=== PATIENT | female | born 1960 | race Caucasian/White ===

== ENCOUNTER → 2017-06-26 | Outpatient (CLI) | payer MEDICARE, OTHER ==
--- NOTE | 2017-06-26 16:20 | CT ---
EXAMINATION TYPE: CT hip LT wo con DATE OF EXAM: 06/26/2017 COMPARISON: NONE HISTORY: Left hip pain after fall injury x2 weeks ago. CT DLP: 349 mGycm Automated exposure control for dose reduction was used. Helical acquisition through the left hip. Cor onal and sagittal reconstructions. FINDINGS: There is no fracture or dislocation. Arthropathy is present with hypertrophic change especially at th e latter acetabulum, correlate for femoral acetabular impingement. No sizable joint effusion or hemat hieu. Some local posterior ecchymosis or soft tissue swelling is noted at the level of the greater tro chanter within the subcutaneous fat IMPRESSION: DEGENERATIVE CHANGES ARE HYPERTROPHIC DESCRIBED, CORRELATE FOR POSSIBLE FEMORAL ACETABULAR IMPINGE MENT.
[2017-06-26 17:28] LABS: Basophils # (A) 0.1 k/uL (0-0.2); Basophils % (A) 1 %; Eosinophils # (A) 0.3 k/uL (0-0.7); Eosinophils % (A) 3 %; HCT 42.1 % (34.0-46.0); HGB 13.5 gm/dL (11.4-16.0); Lymphocytes # (A) 3.2 k/uL (1.0-4.8); Lymphocytes % (A) 34 %; MCH 29.7 pg (25.0-35.0); MCHC 32.1 g/dL (31.0-37.0); MCV 92.6 fL (80.0-100.0); Mean Platelet Volume 7.4; Monocytes # (A) 0.6 k/uL (0-1.0); Monocytes % (A) 6 %; Neutrophils # (A) 5.2 k/uL (1.3-7.7); Neutrophils % (A) 55 %; Platelet Count 381 k/uL (150-450); RBC 4.55 m/uL (3.80-5.40); RDW 12.7 % (11.5-15.5); WBC 9.4 k/uL (3.8-10.6)
[2017-06-26 19:52] LABS: Erythrocyte Sedimentation Rate 8 mm/hr (0-20)
== END | disposition home or self-care (01) ==
LOC: RADCTMAIN 15:38
PROVIDERS: ATTEND Orthopaedic Surgery
DX: M25.862 Other specified joint disorders, left knee (principal); M25.552 Pain in left hip
CPT/HCPCS: 36415; 85025; 85652

== ENCOUNTER → 2017-07-17 | Outpatient (CLI) | payer MEDICARE, OTHER ==
--- NOTE | 2017-07-20 12:15 | MM ---
Reason for exam: screening (asymptomatic). Last mammogram was performed 12 years and 6 months ago. History: Excisional biopsy of the left breast. Physical Findings: A clinical breast exam by your physician is recommended on an annual basis and results should be correlated with mammographic findings. MG 3D Screening Mammo W/Cad Bilateral CC and MLO view(s) were taken. No prior studies available for comparison. There are scattered fibroglandular densities. There is a 3mm mass upper outer quadrant left breast posterior depth, possible lymph node. Ultrasound recommend as no priors are available. There are benign appearing bilateral calcifications. No suspicious abnormality in the right breast. These results were verbally communicated with the patient and result sheet given to the patient on 07/17/17. ASSESSMENT: Incomplete: need additional imaging evaluation, BI-RAD 0 RECOMMENDATION: Ultrasound of the left breast. [facility] will attempt to contact patient to return for ultrasound.
== END | disposition home or self-care (01) ==
LOC: RADMAMWWP 06:48
PROVIDERS: ATTEND Internal Medicine
DX: Z12.31 Encounter for screening mammogram for malignant neoplasm of breast (principal)
CPT/HCPCS: 77063; 77067

== ENCOUNTER → 2017-07-21 | Outpatient (CLI) | payer MEDICARE, OTHER ==
--- NOTE | 2017-07-22 08:51 | USB ---
Reason for exam: additional evaluation requested from abnormal screening. History: Excisional biopsy of the left breast. Physical Findings: Nurse did not find any significant physical abnormalities on exam. US Breast Workup Limited LT Left breast ultrasound demonstrates a 0.2 x 0.4 x 0.2cm solid, hyperechoic lesion at 3 o'clock, questionable clip and a 0.3 x 0.4 x 0.2cm oval, benign, cystic cluster at 3 o'clock. These results were verbally communicated with the patient and result sheet given to the patient on 07/21/17. ASSESSMENT: Benign, BI-RAD 2 RECOMMENDATION: Return to routine screening mammogram schedule for both breasts. MARIA EUGENIA
== END | disposition home or self-care (01) ==
LOC: RADUSWWP 14:21
PROVIDERS: ATTEND Internal Medicine
DX: R92.8 Other abnormal and inconclusive findings on diagnostic imaging of breast (principal)

== ENCOUNTER 2017-11-07 13:11 | Inpatient (IN) | payer MEDICARE, OTHER ==
[2017-11-07] MEDS ORDERED: SODIUM CHLORIDE 0.9% 500 ML IV STA (13:28)
[2017-11-07] MEDS ORDERED: LORazepam 2 MG/ML INJ IV STA (13:28)
--- NOTE | 2017-11-07 13:33 | ED ---
General Adult HPI - General Chief complaint: Neuro Symptoms/Deficit Stated complaint: Memory loss Time Seen by Provider: 11/07/17 13:15 Source: patient, RN notes reviewed Mode of arrival: ambulatory Limitations: no limitations - History of Present Illness Initial comments: Is a 57-year-old female who presents emergency Department with a past medical history significant for smoking which she states she's quit in March. Patient presents today complaining that on November 04 she fell she doesn't believe she hit her head but she does know why she fell and she was unable to get up off the floor for a little bit. Patient states she was not drinking because she does not drink. Patient states eventually she was able to get up off the floor but she noticed that it was difficult to find her words and express her thoughts. Patient states this lack of ability to express herself has continued to today. Patient states at this point she still concerned she decided to finally come in even though her encouraged her to come in on the day she fell. Patient denies headache currently but states she had a headache at the time she fell. Patient denies any visual disturbance. Patient denies any upper or lower extremity weakness or any sensation loss. Patient denies any chest pain palpitations difficulty breathing shortness of breath. Patient denies any recent fever chills or cough. Patient denies any similar symptoms in the past. Patient denies abdominal pain patient denies nausea vomiting diarrhea. Patient denies any lightheadedness dizziness or near syncopal episode. - Related Data Home Medications Medication Instructions Recorded Confirmed traMADol HCl [Ultram] 50 - 100 mg PO Q6H PRN MDD 400MG(8 01/21/11/07/17 TABS) Omeprazole 20 mg PO BID 11/07/17 11/07/17 Allergies Allergy/AdvReac Type Severity Reaction Status Date / Time Penicillins Allergy Rash/Hives/ Verified 11/07/17 13:31 SWELLING Review of Systems ROS Statement: Those systems with pertinent positive or pertinent negative responses have been documented in the HPI. ROS Other: All systems not noted in ROS Statement are negative. Past Medical History Past Medical History: COPD, Fibromyalgia Additional Past Medical History / Comment(s): HX POLYP, CHRONIC BACK PAIN History of Any Multi-Drug Resistant Organisms: None Reported Past Surgical History: Appendectomy, Back Surgery, Breast Surgery, Cholecystectomy Additional Past Surgical History / Comment(s): LEFT BREAST BX BENIGN, COLONOSCOPY Past Anesthesia/Blood Transfusion Reactions: No Reported Reaction Past Psychological History: No Psychological Hx Reported Smoking Status: Former smoker Past Alcohol Use History: None Reported Past Drug Use History: None Reported - Past Family History Father Family Medical History: Cancer Additional Family Medical History / Comment(s): COLON Mother Family Medical History: Cancer Additional Family Medical History / Comment(s): LIVER General Exam - General Exam Comments Initial Comments: GENERAL: Patient is well-developed and well-nourished. Patient is nontoxic and well- hydrated and is in mild distress. ENT: Neck is soft and supple. No significant lymphadenopathy is noted. Oropharynx is clear. Moist mucous membranes. Neck has full range of motion without eliciting any pain. EYES: The sclera were anicteric and conjunctiva were pink and moist. Extraocular movements were intact and pupils were equal round and reactive to light. Eyelids were unremarkable. PULMONARY: Unlabored respirations. Good breath sounds bilaterally. No audible rales rhonchi or wheezing was noted. CARDIOVASCULAR: There is a regular rate and rhythm without any murmurs gallops or rubs. ABDOMEN: Soft and nontender with normal bowel sounds. No palpable organomegaly was noted. There is no palpable pulsatile mass. SKIN: Skin is clear with no lesions or rashes and otherwise unremarkable. NEUROLOGIC: Patient is alert and oriented x3. Cranial nerves II through XII are grossly intact. Motor and sensory are also intact. Patient's speech is clear however she does have trouble expressing herself.. Symmetrical smile. MUSCULOSKELETAL: Normal extremities with adequate strength and full range of motion. No lower extremity swelling or edema. No calf tenderness. LYMPHATICS: No significant lymphadenopathy is noted PSYCHIATRIC: Patient is mildly anxious. Limitations: no limitations Course Vital Signs 11/07/17 11/07/17 13:13 14:29 Temperature 98.5 F Pulse Rate 92 78 Respiratory 16 18 Rate Blood Pressure 188/103 156/75 O2 Sat by Pulse 97 99 Oximetry Medical Decision Making - Medical Decision Making EKG shows normal sinus rhythm at 75 bpm VA interval is 164 QRS 74 QT interval 414 QTC is 462. Patient's EKG shows no ST segment elevation or depression or T wave abnormalities are noted. CT of the brain shows an infarct left temporal parietal region I admitted the patient for CVA I consult the neurology. I spoke with Dr. Rowley and he agreed to the admission - Lab Data Result diagrams: 11/07/17 13:46 11/07/17 13:46 Lab Results 11/07/17 11/07/17 11/07/17 Range/Units 13:32 13:46 13:46 WBC 8.8 (3.8-10.6) k/uL RBC 4.86 (3.80-5.40) m/uL Hgb 15.1 (11.4-16.0) gm/dL Hct 43.8 (34.0-46.0) % MCV 90.0 (80.0-100.0) fL MCH 31.0 (25.0-35.0) pg MCHC 34.4 (31.0-37.0) g/dL RDW 13.3 (11.5-15.5) % Plt Count 327 (150-450) k/uL Neutrophils % 62 % Lymphocytes % 26 % Monocytes % 6 % Eosinophils % 3 % Basophils % 1 % Neutrophils # 5.5 (1.3-7.7) k/uL Lymphocytes # 2.3 (1.0-4.8) k/uL Monocytes # 0.6 (0-1.0) k/uL Eosinophils # 0.3 (0-0.7) k/uL Basophils # 0.1 (0-0.2) k/uL Sodium (137-145) mmol/L Potassium (3.5-5.1) mmol/L Chloride (98-107) mmol/L Carbon Dioxide (22-30) mmol/L Anion Gap mmol/L BUN (7-17) mg/dL Creatinine (0.52-1.04) mg/dL Est GFR (CKD-EPI)AfAm (>60 ml/min/1.73 sqM) Est GFR (CKD-EPI)NonAf (>60 ml/min/1.73 sqM) Glucose (74-99) mg/dL POC Glucose (mg/dL) 134 H (75-99) mg/dL POC Glu Claims Account Manager ID Fanny Posada Calcium (8.4-10.2) mg/dL Total Bilirubin (0.2-1.3) mg/dL AST (14-36) U/L ALT (9-52) U/L Alkaline Phosphatase (38-126) U/L Total Creatine Kinase 193 H (30-135) U/L CK-MB (CK-2) 1.1 (0.0-2.4) ng/mL CK-MB (CK-2) Rel Index 0.6 Troponin I <0.012 (0.000-0.034) ng/mL Total Protein (6.3-8.2) g/dL Albumin (3.5-5.0) g/dL 11/07/17 Range/Units 13:46 WBC (3.8-10.6) k/uL RBC (3.80-5.40) m/uL Hgb (11.4-16.0) gm/dL Hct (34.0-46.0) % MCV (80.0-100.0) fL MCH (25.0-35.0) pg MCHC (31.0-37.0) g/dL RDW (11.5-15.5) % Plt Count (150-450) k/uL Neutrophils % % Lymphocytes % % Monocytes % % Eosinophils % % Basophils % % Neutrophils # (1.3-7.7) k/uL Lymphocytes # (1.0-4.8) k/uL Monocytes # (0-1.0) k/uL Eosinophils # (0-0.7) k/uL Basophils # (0-0.2) k/uL Sodium 141 (137-145) mmol/L Potassium 4.4 (3.5-5.1) mmol/L Chloride 103 (98-107) mmol/L Carbon Dioxide 24 (22-30) mmol/L Anion Gap 14 mmol/L BUN 13 (7-17) mg/dL Creatinine 0.91 (0.52-1.04) mg/dL Est GFR (CKD-EPI)AfAm 81 (>60 ml/min/1.73 sqM) Est GFR (CKD-EPI)NonAf 70 (>60 ml/min/1.73 sqM) Glucose 144 H (74-99) mg/dL POC Glucose (mg/dL) (75-99) mg/dL POC Glu Claims Account Manager ID Calcium 9.7 (8.4-10.2) mg/dL Total Bilirubin 0.7 (0.2-1.3) mg/dL AST 29 (14-36) U/L ALT 28 (9-52) U/L Alkaline Phosphatase 84 (38-126) U/L Total Creatine Kinase (30-135) U/L CK-MB (CK-2) (0.0-2.4) ng/mL CK-MB (CK-2) Rel Index Troponin I (0.000-0.034) ng/mL Total Protein 7.7 (6.3-8.2) g/dL Albumin 4.6 (3.5-5.0) g/dL Disposition Clinical Impression: Cerebrovascular accident Disposition: ADMITTED IP TO THIS HOSP Referrals: Judah Ramirez MD [Primary Care Provider] - 1-2 days Time of Disposition: 14:43
[2017-11-07 13:37] LABS: Glucose,Whole Blood 134 mg/dL (75-99)
[2017-11-07 13:56] LABS: Basophils # (A) 0.1 k/uL (0-0.2); Basophils % (A) 1 %; Eosinophils # (A) 0.3 k/uL (0-0.7); Eosinophils % (A) 3 %; HCT 43.8 % (34.0-46.0); HGB 15.1 gm/dL (11.4-16.0); Lymphocytes # (A) 2.3 k/uL (1.0-4.8); Lymphocytes % (A) 26 %; MCHC 34.4 g/dL (31.0-37.0); Mean Platelet Volume 7.8; Monocytes # (A) 0.6 k/uL (0-1.0); Monocytes % (A) 6 %; Neutrophils # (A) 5.5 k/uL (1.3-7.7); Neutrophils % (A) 62 %; Platelet Count 327 k/uL (150-450); RBC 4.86 m/uL (3.80-5.40); RDW 13.3 % (11.5-15.5); WBC 8.8 k/uL (3.8-10.6)
[2017-11-07 14:03] LABS: Albumin 4.6 g/dL (3.5-5.0); Calcium 9.7 mg/dL (8.4-10.2); Total Bilirubin 0.7 mg/dL (0.2-1.3); Total Protein 7.7 g/dL (6.3-8.2)
[2017-11-07 14:05] LABS: Potassium 4.4 mmol/L (3.5-5.1)
[2017-11-07 14:15] LABS: Creatine Kinase 193 U/L (30-135)
[2017-11-07 14:28] LABS: Creatine Kinase MB 1.1 ng/mL (0.0-2.4); Troponin I <0.012 ng/mL (0.000-0.034)
--- NOTE | 2017-11-07 14:34 | CT ---
EXAMINATION TYPE: CT brain wo con DATE OF EXAM: 11/07/2017 COMPARISON: 06/19/2015 HISTORY: Neuro deficits CT DLP: 1121 mGycm. Automated Exposure Control for Dose Reduction was Utilized. TECHNIQUE: CT scan of the head is performed without contrast. FINDINGS: There is no acute intracranial hemorrhage. The ventricles and sulci are within normal li mits in size. The globes are intact and the visualized sinuses are clear. Calcifications that appear dystrophic within the left occipital lobe are seen, appearing similar to the prior exam of 06/19/2015 . On that examination there was administration of contrast with no underlying appreciable mass. Within the left temporal lobe and occipital lobe there are multiple new hypoattenuated regions with p eripheral hyperattenuation. Some of these appear to involve both the beauchamp and white matter junction s uch as on series 3 image 28. On series 3 image 25 the more posterior measures up to 1.7 cm in the mor e anterior on image 28 measures up to 2.8 cm. No midline shift is appreciated. IMPRESSION: Left temporoparietal areas of hypoattenuation with peripheral hyperattenuation. Focal are as within this region involves both beauchamp and white matter and therefore suspicion is for sequela of i nfarct rather than underlying mass, however further evaluation with enhanced MR is recommended to ens ure no underlying mass. Additionally developmental venous anomaly is suspected within the left occipi nura lobe.
--- NOTE | 2017-11-07 14:37 | XR ---
EXAMINATION TYPE: XR chest 2V DATE OF EXAM: 11/07/2017 COMPARISON: NONE HISTORY: Altered mental status TECHNIQUE: Frontal and lateral views of the chest are obtained. FINDINGS: There is no focal air space opacity, pleural effusion, or pneumothorax seen. The cardiac silhouette size is within normal limits. The osseous structures are intact. IMPRESSION: No acute cardiopulmonary process.
[2017-11-07] MEDS ORDERED: ASPIRIN 325 MG TAB PO STA (14:44)
[2017-11-07 14:57] LABS: Partial Thromboplastin Time 23.7 sec (22.0-30.0); Prothrombin Time 10.1 sec (9.0-12.0)
--- NOTE | 2017-11-07 15:55 | US ---
EXAMINATION TYPE: US carotid duplex BILAT DATE OF EXAM: 11/07/2017 COMPARISON: NONE CLINICAL HISTORY: Stenosis. EXAM MEASUREMENTS: RIGHT: Peak Systolic Velocity (PSV) cm/sec ----- Right CCA: 59.0 ----- Right ICA: 113.7 ----- Right ECA: 89.7 ICA/CCA ratio: 1.9 RIGHT: End Diastole cm/sec ----- Right CCA: 25.0 ----- Right ICA: 44.4 ----- Right ECA: 17.1 LEFT: Peak Systolic Velocity (PSV) cm/sec ----- Left CCA: 51.1 ----- Left ICA: *442.1* ----- Left ECA: 83.8 ICA/CCA ratio: 8.6 LEFT: End Diastole cm/sec ----- Left CCA: 19.7 ----- Left ICA: 193.9 ----- Left ECA: 16.0 VERTEBRALS (direction of flow): Right Vertebral: Antegrade Left Vertebral: Antegrade Rhythm: Normal Severe atherosclerotic changes seen bilaterally with significant velocity increase seen in left ICA indicative of >70% stenosis. IMPRESSION: 1. Findings suggesting greater than 70% stenosis of the left carotid bulb and internal carotid artery . Degree of stenosis can be more accurately assessed with CTA neck. 2. Velocities approaching 50% stenosis of the right internal carotid artery.
[2017-11-07 16:14] VITALS: BMI 28.3
[2017-11-07] MEDS ORDERED: IPRATROPIUM-ALBUTEROL 3 ML NEB INHALATION PRN (17:41)
[2017-11-07] MEDS: PANTOPRAZOLE 40 MG TABLET PO SCH (18:14)
[2017-11-07] MEDS: traMADol 50 MG TAB PO PRN (18:14)
--- NOTE | 2017-11-07 21:12 | P.HPIM ---
History of Present Illness H&P Date: 11/07/17 Chief Complaint: Difficulty in speech Patient is a 57-year-old female with known history of COPD and fibromyalgia and chronic back pain , active smoking and history of neurostimulator placement with Leads still in place came to ER with complaints of difficulty in speech. Patient says that on November 04 she became unconscious and fell on the floor. Patient was so weak and could not able to get up until 10 minutes later. Patient also felt headache and difficulty in speech and difficulty in finding words. Patient states this lack of ability to express herself has continued to today. Patient states at this point she still concerned she decided to finally come in even though her encouraged her to come in on the day she fell. Patient denies headache currently but states she had a headache at the time she fell. Patient denies any visual disturbance. Patient denies any upper or lower extremity weakness or any sensation loss. Patient denies any chest pain palpitations difficulty breathing shortness of breath. Patient denies any recent fever chills or cough. Patient denies any similar symptoms in the past. Patient denies abdominal pain patient denies nausea vomiting diarrhea. Patient denies any lightheadedness dizziness or near syncopal episode. Chest x-ray showed no acute cardio pulmonary process EKG showed normal sinus rhythm CT head. Left temporoparietal areas of hypoattenuation with peripheral hypoattenuation. Focal areas of within this region involving both beauchamp and white matter and therefore suspicion is for sequelae of infarct rather than underlying mass.. However further evaluation with and has MR is recommended to ensure no underlying mass. Additionally developmental venous anomaly is suspected within the left occipital lobe. Carotid duplex. Findings suggesting greater than 70% stenosis of the left carotid bulb and internal carotid artery. Degree of stenosis can be more accurately assessed with CT of neck. Velocities approaching 50% stenosis on the right internal carotid artery. Review of Systems Constitutional: Patient denies any fever or chills . No generalized weakness or weight loss. Abdomen: Patient denied nausea vomiting and diarrhea and abdominal pain. Cardiovascular: Patient denies any chest pain or short of breath no palpitations. Respiratory: patient denied any cough is from production. No shortness of breath Neurologic: Patient denied any numbness or tingling headache. Patient does have difficulty finding words Musculoskeletal: Patient denies any complaints of joint swelling or deformity. Skin: Negative Psychiatric: Negative Endocrine: No heat or cold intolerance. No recent weight gain. Genitourinary: No dysuria or hematuria. All other 14 point ROS negative except the above Past Medical History Past Medical History: COPD, Fibromyalgia Additional Past Medical History / Comment(s): HX POLYP, CHRONIC BACK PAIN, RSD IN LEFT HAND History of Any Multi-Drug Resistant Organisms: None Reported Past Surgical History: Appendectomy, Back Surgery, Breast Surgery, Cholecystectomy Additional Past Surgical History / Comment(s): LEFT BREAST BX BENIGN, COLONOSCOPY, NERVE BLOCK TO NECK X3. Past Anesthesia/Blood Transfusion Reactions: No Reported Reaction Past Psychological History: No Psychological Hx Reported Smoking Status: Former smoker Past Alcohol Use History: None Reported Additional Past Alcohol Use History / Comment(s): CURRENTLY LESS THAN 1 PPD, STARTED AGE 15 (1974) Past Drug Use History: None Reported - Past Family History Father Family Medical History: Cancer Additional Family Medical History / Comment(s): COLON Mother Family Medical History: Cancer Additional Family Medical History / Comment(s): LIVER Medications and Allergies Home Medications Medication Instructions Recorded Confirmed Type traMADol HCl [Ultram] 50 - 100 mg PO Q6H PRN MDD 400MG(8 01/22/16 11/07/17 History TABS) Omeprazole 20 mg PO BID 11/07/17 11/07/17 History Allergies Allergy/AdvReac Type Severity Reaction Status Date / Time Penicillins Allergy Rash/Hives/ Verified 11/07/17 13:31 SWELLING Physical Exam Vitals: Vital Signs Temp Pulse Pulse Resp BP BP Pulse Ox 11/07/17 15:44 97.1 F L 70 16 130/92 98 11/07/17 15:30 69 20 182/79 100 11/07/17 14:44 74 18 152/87 100 11/07/17 14:29 78 18 156/75 99 11/07/17 13:13 98.5 F 92 16 188/103 97 Intake and Output 11/07/17 11/07/17 11/07/17 06:59 14:59 22:59 Other: Weight 70.307 kg 70.307 kg PHYSICAL EXAMINATION: Patient is lying in the bed comfortably, no acute distress, awake alert and oriented.. HEENT: Normocephalic. Neck is supple. Pupils reactive. Nostrils clear. Oral cavity is moist. Ears reveal no drainage. Neck reveals no JVD, carotid bruits, or thyromegaly. CHEST EXAMINATION: Trachea is central. Symmetrical expansion. Lung garland clear to auscultation and percussion. CARDIAC: Normal S1, S2 with no gallops. No murmurs ABDOMEN: Soft. Bowel sounds normal. No organomegaly. No abdominal bruits. Extremities: reveal no edema. No clubbing or cyanosis Neurologically awake, alert, oriented x3 with well-coordinated movements. No facial weakness. Motor and sensory intact. Patient does have difficulty in finding words. Skin: No rash or skin lesions. Psychiatric: Cooperative. Nonsuicidal Musculoskeletal: No joint swelling or deformity. Normal range of motion. Results CBC & Chem 7: 11/07/17 13:46 11/07/17 13:46 Labs: Abnormal Lab Results - Last 24 Hours (Table) 11/07/17 11/07/17 11/07/17 Range/Units 13:32 13:46 13:46 Glucose 144 H (74-99) mg/dL POC Glucose (mg/dL) 134 H (75-99) mg/dL Total Creatine Kinase 193 H (30-135) U/L Thrombosis Risk Factor Assmnt - DVT/VTE Prophylaxis DVT/VTE Prophylaxis: Pharmacologic Prophylaxis ordered - Choose All That Apply Each Factor Represents 1 point: Age 41-60 years Thrombosis Risk Factor Assessment Total Risk Factor Score: 1 Thrombosis Risk Factor Assessment Level: Low Risk Assessment and Plan Assessment: Acute CVA with expressive aphasia Left carotid artery greater than 70% stenosis COPD Fibromyalgia Chronic lower back pain History of neurostimulator placement and removal with Leads still in place Previous history of smoking DVT prophylaxis Plan: Patient will be continued on aspirin. Lipid profile was ordered. 2-D echocardiogram was ordered. Neurology was consulted and continue with neuro checks. Vascular surgery consult due to carotid artery stenosis. Continue the pain management and follow up closely. Further recommendations based on the clinical course. Time with Patient: Greater than 30
[2017-11-07 21:21] VITALS: RESP 18
[2017-11-08] MEDS: HEPARIN SODIUM,PORCINE 5,000 UNIT/ML 1 ML VIAL SQ SCH ×4 (00:15→23:48)
[2017-11-08] MEDS: traMADol 50 MG TAB PO PRN ×4 (04:05→22:35)
[2017-11-08 06:07] LABS: Cholesterol 186 mg/dL (<200); HDL Cholesterol 39 mg/dL (40-60); LDL Cholesterol,Calculated 106 mg/dL (0-99); Triglycerides 206 mg/dL (<150)
[2017-11-08] MEDS: PANTOPRAZOLE 40 MG TABLET PO SCH ×2 (06:11→17:04)
[2017-11-08] MEDS: ASPIRIN 325 MG TAB PO SCH (08:06)
--- NOTE | 2017-11-08 12:11 | CONS ---
CONSULTATION This is a 57-year-old female. She came to the emergency room to [facility] with history of slurred speech and difficulty in pronouncing the words. This happened on November. The patient had a stroke workup including a CT of the head of the brain and carotid ultrasound. Ultrasound shows about 70% stenosis on the left side. Patient also had CT of the brain which showed left temporal parietal area of hypoattenuation, possible infarct, recommended MRI is recommended. MEDICAL HISTORY: No history of diabetes, hypertension, coronary artery disease. PERSONAL HISTORY: Long-standing history of 1 pack a day. Quit smoking on . SURGICAL HISTORY: Patient had a back surgery done and they have placed a stimulator. The patient also had a gallbladder and appendix removed in the past. PHYSICAL EXAMINATION: Patient was seen in her room. Her vital signs stable. NECK: Supple. No bruit appreciated. CHEST: Clear to auscultation. ABDOMEN: Soft. Brachial radial and femoral pulses are present. Motor function right upper and lower extremity motor are normal. The patient still has some difficulties with pronouncing the word, but according to the patient, her speech is improving. PLAN: The patient is on antiplatelet therapy and the patient had a 2D echo of the heart and neuro consult. The patient wants to go home and have the rest of the workup done as an outpatient. I have discussed with Internal Medicine and we will follow with you. Thank you for the consultation. RADHA / PARAG: [id number] /
--- NOTE | 2017-11-08 14:08 | P.CONS ---
History of Present Illness - Reason for Consult Consult date: 11/08/17 CVA - Chief Complaint Stroke - History of Present Illness This pleasant 57-year-old female being evaluated by the neurology service for stroke. Patient says that on November 04 she was sitting in her living room and she became unconscious and felt floor. She denies any injuries from the fall. She felt very weak and had difficulty finding words. She did not come to the emergency room until the . Her symptoms continued. She thinks she had a headache that day but denies any headache now. She has had no lateralizing weakness or visual disturbance. She's had no trouble swallowing. Head CT done in the ER showed area of hypoattenuation with peripheral hyper attenuation in the left temporoparietal area. Radiology did suggest magnetic resonance imaging to ensure there is no underlying mass, however she cannot undergo MRI because of the neurostimulator. Her carotid Doppler showed 70% stenosis of the left carotid bulb and internal carotid artery. Cardiovascular has already been consulted. Her labs in the ER showed a mildly elevated CK and a mildly elevated glucose otherwise there were normal. Her EKG was essentially normal. At time my exam she is resting comfortably in bed in no acute distress. She is still having some mild expressive aphasia. Review of Systems All systems: negative Constitutional: Reports as per HPI Past Medical History Past Medical History: COPD, Fibromyalgia Additional Past Medical History / Comment(s): HX POLYP, CHRONIC BACK PAIN, RSD IN LEFT HAND History of Any Multi-Drug Resistant Organisms: None Reported Past Surgical History: Appendectomy, Back Surgery, Breast Surgery, Cholecystectomy Additional Past Surgical History / Comment(s): LEFT BREAST BX BENIGN, COLONOSCOPY, NERVE BLOCK TO NECK X3. Past Anesthesia/Blood Transfusion Reactions: No Reported Reaction Past Psychological History: No Psychological Hx Reported Smoking Status: Former smoker Past Alcohol Use History: None Reported Additional Past Alcohol Use History / Comment(s): CURRENTLY LESS THAN 1 PPD, STARTED AGE 15 (1975) Past Drug Use History: None Reported - Past Family History Father Family Medical History: Cancer Additional Family Medical History / Comment(s): COLON Mother Family Medical History: Cancer Additional Family Medical History / Comment(s): LIVER Medications and Allergies Home Medications Medication Instructions Recorded Confirmed Type traMADol HCl [Ultram] 50 - 100 mg PO Q6H PRN MDD 400MG(01/21/11/07/17 History TABS) Omeprazole 20 mg PO BID 11/07/17 11/07/17 History Allergies Allergy/AdvReac Type Severity Reaction Status Date / Time Penicillins Allergy Rash/Hives/ Verified 11/07/17 13:31 SWELLING Physical Exam Vitals: Vital Signs Temp Pulse Pulse Resp BP BP Pulse Ox 11/08/17 12:10 96.2 F L 79 18 124/70 97 11/08/17 08:06 97 F L 69 18 115/56 99 11/08/17 07:59 93 L 11/08/17 04:00 97.1 F L 87 18 127/66 96 11/08/17 00:00 97.2 F L 72 18 117/59 97 11/07/17 20:00 97.2 F L 70 18 112/58 94 L 11/07/17 17:44 70 16 135/77 98 11/07/17 16:44 71 16 138/64 98 11/07/17 15:44 97.1 F L 70 16 130/92 98 11/07/17 15:30 69 20 182/79 100 11/07/17 14:44 74 18 152/87 100 11/07/17 14:29 78 18 156/75 99 Intake and Output 11/07/17 11/08/17 11/08/17 22:59 06:59 14:59 Intake Total 360 240 Balance 360 240 Intake: Oral 360 240 Other: # Voids 1 2 1 Weight 70.307 kg 71.2 kg - Constitutional General appearance: average body habitus, cooperative, no acute distress - EENT Eyes: no abnormal pupil, EOMI, PERRLA, no ptosis ENT: hearing grossly normal - Neck Neck: normal ROM, no rigidity - Respiratory Respiratory: negative: prolonged expiration, prolonged inspiration - Cardiovascular Rhythm: regular - Gastrointestinal General gastrointestinal: no distended, no tenderness - Neurologic The patient is alert awake and oriented 3. Speech is normal but there is mild expressive aphasia. There is no facial asymmetry. Strength is 5 out of 5 in bilateral upper and lower extremities. There is no new sensory deficit. She has a long-standing sensory deficit of the right lower foot and lower leg. No tremors or seizures are seen. Cranial nerves II through XII are intact globally. There is no dysmetria or dysdiadochokinesia. No pronator drift. Results CBC & Chem 7: 11/07/17 13:46 11/07/17 13:46 Labs: Abnormal Lab Results - Last 24 Hours (Table) 11/07/17 11/07/17 11/08/17 Range/Units 13:46 13:46 05:32 Glucose 144 H (74-99) mg/dL Total Creatine Kinase 193 H (30-135) U/L Triglycerides 206 H (<150) mg/dL LDL Cholesterol, Calc 106 H (0-99) mg/dL HDL Cholesterol 39 L (40-60) mg/dL Assessment and Plan (1) Expressive aphasia Current Visit: Yes Status: Acute Code(s): R47.01 - APHASIA SNOMED Code(s) : 644261270 (2) COPD (chronic obstructive pulmonary disease) Current Visit: Yes Status: Chronic Code(s): J44.9 - CHRONIC OBSTRUCTIVE PULMONARY DISEASE, UNSPECIFIED SNOMED Code(s): 37172322 (3) Tobacco use Current Visit: Yes Status: Chronic Code(s): Z72.0 - TOBACCO USE SNOMED Code(s): 412013945 (4) Carotid stenosis Current Visit: Yes Status: Chronic Code(s): I65.29 - OCCLUSION AND STENOSIS OF UNSPECIFIED CAROTID ARTERY SNOMED Code(s): 35641954 (5) Dyslipidemia Current Visit: Yes Status: Chronic Code(s): E78.5 - HYPERLIPIDEMIA, UNSPECIFIED SNOMED Code(s): 622494329 (6) Cerebrovascular accident Current Visit: Yes Status: Acute Code(s): I63.9 - CEREBRAL INFARCTION, UNSPECIFIED SNOMED Code(s): 434107801 Plan: This patient has suffered an acute ischemic stroke in the left middle cerebral artery distribution. Due to an area of peripheral hyper attenuation on the CT, radiology did recommend an MRI to rule out a mass. She cannot undergo an MRI due to the presence of a neurostimulator. I will order CT of the brain with contrast. Labs showed triglycerides of 206 cholesterol 186 and LDL of 106 and HDL of 39. She has been started on aspirin, and I will add Lipitor 40 mg daily. Continue work with speech therapy. Bedside Swallowing study was ordered but I see no results of that. She denies any problems swallowing, gagging or choking. Due to her loss of consciousness I have ordered an EEG. Vascular we'll continue to follow for her carotid stenosis. We will continue to follow and make recommendations based on the above studies. I have performed a history and physical on the above patient. I have reviewed the above note, and agree.
[2017-11-08] MEDS ORDERED: ACETAMINOPHEN TAB 325 MG TAB PO PRN (18:44)
[2017-11-08] MEDS ORDERED: ATORVASTATIN 40 MG TAB PO SCH (21:00)
--- NOTE | 2017-11-08 23:14 | P.PN ---
Subjective Progress Note Date: 11/08/17 Principal diagnosis: Acute CVA with expressive aphasia Patient is a 57-year-old female with known history of COPD and fibromyalgia and chronic back pain , active smoking and history of neurostimulator placement with Leads still in place came to ER with complaints of difficulty in speech. Patient says that on November 04 she became unconscious and fell on the floor. Patient was so weak and could not able to get up until 10 minutes later. Patient also felt headache and difficulty in speech and difficulty in finding words. Patient states this lack of ability to express herself has continued to today. Patient states at this point she still concerned she decided to finally come in even though her encouraged her to come in on the day she fell. Patient denies headache currently but states she had a headache at the time she fell. Patient denies any visual disturbance. Patient denies any upper or lower extremity weakness or any sensation loss. Patient denies any chest pain palpitations difficulty breathing shortness of breath. Patient denies any recent fever chills or cough. Patient denies any similar symptoms in the past. Patient denies abdominal pain patient denies nausea vomiting diarrhea. Patient denies any lightheadedness dizziness or near syncopal episode. Chest x-ray showed no acute cardio pulmonary process EKG showed normal sinus rhythm CT head. Left temporoparietal areas of hypoattenuation with peripheral hypoattenuation. Focal areas of within this region involving both beauchamp and white matter and therefore suspicion is for sequelae of infarct rather than underlying mass.. However further evaluation with and has MR is recommended to ensure no underlying mass. Additionally developmental venous anomaly is suspected within the left occipital lobe. Carotid duplex. Findings suggesting greater than 70% stenosis of the left carotid bulb and internal carotid artery. Degree of stenosis can be more accurately assessed with CT of neck. Velocities approaching 50% stenosis on the right internal carotid artery. 11/08/2017 Patient says that her speech is better and still having intermittent expressive aphasia. Speech and swallow evaluation is pending at this time. Neurology has seen the patient and recommended CT with contrast. Vascular surgery has seen the patient and recommended arch study and outpatient follow-up with surgery. Otherwise patient denied any chest pain or shortness of breath. Patient is able to tolerate oral diet. EEG was ordered as well. All other review of systems negative except the above Current medications reviewed Objective - Vital Signs Vital signs: Vital Signs Temp 98.4 F 11/08/17 20:00 Pulse 64 11/08/17 20:00 Resp 18 11/08/17 20:00 BP 119/60 11/08/17 20:00 Pulse Ox 95 11/08/17 20:00 Intake & Output 11/08/17 11/08/17 11/09/17 06:59 18:59 06:59 Intake Total 840 Balance 840 Weight 71.2 kg Intake: Oral 840 Other: Voiding Method Toilet # Voids 2 2 - Exam PHYSICAL EXAMINATION: Patient is lying in the bed comfortably, no acute distress, awake alert and oriented.. HEENT: Normocephalic. Neck is supple. Pupils reactive. Nostrils clear. Oral cavity is moist. Ears reveal no drainage. Neck reveals no JVD, carotid bruits, or thyromegaly. CHEST EXAMINATION: Trachea is central. Symmetrical expansion. Lung garland clear to auscultation and percussion. CARDIAC: Normal S1, S2 with no gallops. No murmurs ABDOMEN: Soft. Bowel sounds normal. No organomegaly. No abdominal bruits. Extremities: reveal no edema. No clubbing or cyanosis Neurologically awake, alert, oriented x3 with well-coordinated movements. Expressive aphasia. No focal deficits noted Skin: No rash or skin lesions. Psychiatric: Coperative. Nonsuicidal Musculoskeletal: No joint swelling or deformity. Normal range of motion. - Labs CBC & Chem 7: 11/07/17 13:46 11/07/17 13:46 Labs: Abnormal Lab Results - Last 24 Hours (Table) 11/08/17 Range/Units 05:32 Triglycerides 206 H (<150) mg/dL LDL Cholesterol, Calc 106 H (0-99) mg/dL HDL Cholesterol 39 L (40-60) mg/dL Assessment and Plan Assessment: Acute CVA with expressive aphasia. Involving left middle cerebral artery Left carotid artery greater than 70% stenosis Hyperlipidemia with LDL 106 and mild hypertriglyceridemia COPD Fibromyalgia Chronic lower back pain History of neurostimulator placement and removal with Leads still in place Previous history of smoking DVT prophylaxis Plan: Patient will be continued on aspirin. Added statin. 2-D echocardiogram was ordered. Patient was seen by neurology and vascular surgery. continue with neuro checks. CT head with contrast was ordered. Patient could not get MRI due to neurostimulator wires still remain under the skin. Continue the pain management and follow up closely. Further recommendations based on the clinical course. Time with Patient: Greater than 30
[2017-11-08 23:19] VITALS: PULSE 73
[2017-11-09] MEDS: PANTOPRAZOLE 40 MG TABLET PO SCH (06:23)
[2017-11-09] MEDS: traMADol 50 MG TAB PO PRN ×2 (06:26→13:38)
[2017-11-09] MEDS: ASPIRIN 325 MG TAB PO SCH (08:07)
[2017-11-09] MEDS: HEPARIN SODIUM,PORCINE 5,000 UNIT/ML 1 ML VIAL SQ SCH (08:07)
[2017-11-09 11:38] VITALS: BP 123/70; TEMP 98
[2017-11-09] MEDS ORDERED: RX INFO: IV CONTRAST WAS GIVEN 1 EACH MISC MISCELLANE PRN (13:40)
--- NOTE | 2017-11-09 14:03 | PN ---
PROGRESS NOTE ADDENDUM: Patient came with history of difficulty in pronouncing the word and speech problem. Patient had a complete stroke workup. Ultrasound showed left carotid 70%. Patient had a CTA report noted. Patient also scheduled to have a 2D echo of the heart and EEG. Patient stated her speech is getting better. She has no history of any motor deficit. Patient cannot have a MRI of the brain because she had some spinal stimulator for the pain. Patient is on antiplatelet therapy. Patient wants to go home. We will discuss with medicine, we can do outpatient stroke workup. Most likely she will need an arch study. MMODL / IJN: [id number] /
--- NOTE | 2017-11-09 15:59 | CT ---
EXAMINATION TYPE: CT brain w con DATE OF EXAM: 11/09/2017 COMPARISON: 11/07/2017 and 06/19/2015 HISTORY: 57-year-old female Trouble speaking, rule out mass. Patient unable to have MRI. CT DLP: 955.2 mGycm Automated exposure control for dose reduction was used. CONTRAST: CT scan of the head is performed with IV Contrast, patient injected with 100 mL of Isovue 300. Scott l and sagittal reconstructions performed. FINDINGS: The previously seen cortical/subcortical hypodensities along the left temporoparietal junction appear irregular and slightly more hypodense as compared to 11/07/2017. No convincing masslike or nodular enh ancement in this region. No midline shift, effacement of basal subarachnoid cisterns, hydrocephalus, or extra-axial fluid darwin ection. No enhancing intracranial lesions. Dural venous sinuses are patent. Stable punctate calcifications left parieto-occipital junction unchanged from 2016. Paranasal sinuses and mastoid air cells are well pneumatized. Orbits and globes are intact. IMPRESSION: 1. The irregular areas of cortical and subcortical hypodensities in the left temporoparietal region s how increasing hypodensity now nearing that of CSF. There is no suspicious enhancing lesion seen here . Evolving subacute to chronic infarct is suspected. Follow-up can be performed. 2. Focal areas of intraparenchymal calcification left occipital parietal junction unchanged from 2016 .
--- NOTE | 2017-11-09 16:19 | P.PN ---
Subjective Progress Note Date: 11/09/17 Principal diagnosis: Stroke Is a pleasant 57-year-old female continuing to be evaluated by the neurology service for stroke. Started on November 04 when she became unconscious and fell to the floor. She has had no lateralizing weakness. Initial CT in the ER showed an area of hypoattenuation in the left temporoparietal area. MRI was suggested to rule out underlying mass. He cannot undergo an MRI so we did CT of the brain with contrast. No mass lesion was found. This repeat CT did show evolution of the area of hypoattenuation consistent with subacute infarct. Recall that some carotid stenosis was artery found cardiovascular is following for this. At the time my exam she is sitting at her bedside in no acute distress. She still has some mild expressive aphasia. Objective - Vital Signs Vital signs: Vital Signs Temp 98.0 F 11/09/17 11:36 Pulse 73 11/09/17 11:36 Resp 18 11/09/17 11:36 BP 123/70 11/09/17 11:36 Pulse Ox 96 11/09/17 11:36 Intake & Output 11/08/17 11/09/17 11/09/17 18:59 06:59 18:59 Intake Total 840 490 480 Balance 840 490 480 Weight 70.4 kg Intake: IV 10 0.9 10 Oral 840 480 480 Other: Voiding Method Toilet Toilet # Voids 2 3 4 - Constitutional General appearance: Present: cooperative, no acute distress - EENT Eyes: Present: EOMI, PERRLA. Absent: abnormal pupil, ptosis ENT: Present: hearing grossly normal - Neck Neck: Present: normal ROM. Absent: rigidity - Respiratory Respiratory: negative: prolonged expiration, prolonged inspiration - Cardiovascular Rhythm: regular - Gastrointestinal General gastrointestinal: Absent: distended - Neurologic Neurologic Comment(s): Patient is alert awake and oriented 3. Speech is normal but there is some mild expressive aphasia. There is no facial asymmetry. There is no lateralizing weakness. There is no sensory deficit except for her long- standing sensory deficit of the right lower extremity. Tremors or seizure-like activities are seen. - Labs CBC & Chem 7: 11/07/17 13:46 11/07/17 13:46 Assessment and Plan (1) Expressive aphasia Current Visit: Yes Status: Acute Code(s): R47.01 - APHASIA SNOMED Code(s) : 439653599 (2) COPD (chronic obstructive pulmonary disease) Current Visit: Yes Status: Chronic Code(s): J44.9 - CHRONIC OBSTRUCTIVE PULMONARY DISEASE, UNSPECIFIED SNOMED Code(s): 12142170 (3) Tobacco use Current Visit: Yes Status: Chronic Code(s): Z72.0 - TOBACCO USE SNOMED Code(s): 727152748 (4) Carotid stenosis Current Visit: Yes Status: Chronic Code(s): I65.29 - OCCLUSION AND STENOSIS OF UNSPECIFIED CAROTID ARTERY SNOMED Code(s): 61157875 (5) Dyslipidemia Current Visit: Yes Status: Chronic Code(s): E78.5 - HYPERLIPIDEMIA, UNSPECIFIED SNOMED Code(s): 628698213 (6) Cerebrovascular accident Current Visit: Yes Status: Acute Code(s): I63.9 - CEREBRAL INFARCTION, UNSPECIFIED SNOMED Code(s): 578952520 Plan: This patient has suffered an acute ischemic stroke in the left middle cerebral artery distribution. Due to an area of peripheral hyper attenuation on the CT, radiology did recommend an MRI to rule out a mass. She cannot undergo an MRI due to the presence of a neurostimulator. Her CT of the brain with contrast showed no mass but did show an evolution of hypoattenuation in the previous mentioned area, consistent with subacute infarct. She has been started on aspirin, and Lipitor 40 mg daily. Continue work with speech therapy she has no trouble swallowing and passed a bedside swallowing study. Due to her loss of consciousness I have ordered an EEG. he can discuss results of this outpatient setting. Vascular we'll continue to follow for her carotid steno she is otherwise cleared from a neurological standpoint to follow up in outpatient I have performed a history and physical on the above patient. I have reviewed the above note, and agree.
--- NOTE | 2017-11-09 17:53 | ECHOF ---
Referral Reason:Acute CVA MEASUREMENTS -------- HEIGHT: 157.5 cm WEIGHT: 70.3 kg BP: 96/52 IVSd: 1.1 cm (0.6 - 1.1) LVIDd: 3.8 cm (3.9 - 5.3) LVPWd: 1.0 cm (0.6 - 1.1) IVSs: 1.2 cm LVIDs: 3.6 cm LVPWs: 0.8 cm LAESV Index (A-L): 19.49 ml/m Ao Diam: 3.2 cm (2.0 - 3.7) LA Diam: 3.0 cm (2.7 - 3.8) EPSS: 0.3 cm MV E Andriy: 0.82 m/s MV DecT: 180 ms MV A Andriy: 0.72 m/s MV E/A Ratio: 1.13 RAP: 5.00 mmHg RVSP: 13.09 mmHg MV EF SLOPE: 98.63 mm/s (70 - 150) MV EXCURSION: 13.88 mm (> 18.000) FINDINGS -------- Sinus rhythm. This was a technically adequate study. The left ventricular size is normal. There is borderline concentric left ventricular hypertrophy. Overall left ventricular systolic function is normal with, an EF between 55 - 60 %. The right ventricle is normal in size. The left atrial size is normal. The right atrial size is normal. There is mild aortic valve sclerosis. There is no evidence of aortic regurgitation. Mild mitral annular calcification present. Mild mitral regurgitation is present. Mild tricuspid regurgitation present. There is no evidence of pulmonary hypertension. The right v entricular systolic pressure, as measured by Doppler, is 13.09mmHg. There is no pulmonic regurgitation present. The aortic root size is normal. There is no pericardial effusion. CONCLUSIONS -------- 1. The left ventricular size is normal. 2. There is borderline concentric left ventricular hypertrophy. 3. Overall left ventricular systolic function is normal with, an EF between 55 - 60 %. 4. The right ventricle is normal in size. 5. The left atrial size is normal. 6. The right atrial size is normal. 7. There is mild aortic valve sclerosis. 8. Mild mitral annular calcification present. 9. Mild mitral regurgitation is present. 10. Mild tricuspid regurgitation present. 11. There is no evidence of pulmonary hypertension. 12. The right ventricular systolic pressure, as measured by Doppler, is 13.09mmHg. 13. There is no pulmonic regurgitation present. 14. The aortic root size is normal. 15. There is no pericardial effusion. POTLINE MONITOR: Janet Luke RDCS
--- NOTE | 2017-11-09 23:17 | P.DS ---
Providers Date of admission: 11/07/17 14:44 Expected date of discharge: 11/09/17 Attending physician: Pedro Rowley Consults: 11/07/17 14:45 Consult Physician Routine Consulting Provider: Becca Francisco Consult Reason/Comments: CVA Do you want consulting provider notified?: Yes 11/07/17 17:40 Consult Physician Routine Consulting Provider: Viktor Birmingham Consult Reason/Comments: Left carotid stenosis Do you want consulting provider notified?: Yes Primary care physician: Ashley So Hospital Course: Discharge diagnosis Acute CVA with expressive aphasia. Involving left middle cerebral artery Left carotid artery greater than 70% stenosis Hyperlipidemia with LDL 106 and mild hypertriglyceridemia COPD Fibromyalgia Chronic lower back pain History of neurostimulator placement and removal with Leads still in place Previous history of smoking DVT prophylaxis Hospital course Patient is a 57-year-old female with known history of COPD and fibromyalgia and chronic back pain , active smoking and history of neurostimulator placement with Leads still in place came to ER with complaints of difficulty in speech. Patient says that on November 04 she became unconscious and fell on the floor. Patient was so weak and could not able to get up until 10 minutes later. Patient also felt headache and difficulty in speech and difficulty in finding words. Patient states this lack of ability to express herself has continued to today. Patient states at this point she still concerned she decided to finally come in even though her encouraged her to come in on the day she fell. Patient denies headache currently but states she had a headache at the time she fell. Patient denies any visual disturbance. Patient denies any upper or lower extremity weakness or any sensation loss. Patient denies any chest pain palpitations difficulty breathing shortness of breath. Patient denies any recent fever chills or cough. Patient denies any similar symptoms in the past. Patient denies abdominal pain patient denies nausea vomiting diarrhea. Patient denies any lightheadedness dizziness or near syncopal episode. Chest x-ray showed no acute cardio pulmonary process EKG showed normal sinus rhythm CT head. Left temporoparietal areas of hypoattenuation with peripheral hypoattenuation. Focal areas of within this region involving both beauchamp and white matter and therefore suspicion is for sequelae of infarct rather than underlying mass.. However further evaluation with and has MR is recommended to ensure no underlying mass. Additionally developmental venous anomaly is suspected within the left occipital lobe. Carotid duplex. Findings suggesting greater than 70% stenosis of the left carotid bulb and internal carotid artery. Degree of stenosis can be more accurately assessed with CT of neck. Velocities approaching 50% stenosis on the right internal carotid artery. 11/08/2017 Patient says that her speech is better and still having intermittent expressive aphasia. Speech and swallow evaluation is pending at this time. Neurology has seen the patient and recommended CT with contrast. Vascular surgery has seen the patient and recommended arch study and outpatient follow-up with surgery. Otherwise patient denied any chest pain or shortness of breath. Patient is able to tolerate oral diet. EEG was ordered as well. 11/09/2017 Patient's speech better than yesterday. Patient is being continued on aspirin and atorvastatin. Repeat CT head with contrast showed a regular the areas of cortical and subcortical hypodensities in the left temporoparietal region show increasing hypodensity now nearing that of CSF. There is no suspicious enhancing lesion seen here. Evolving subacute to chronic infarct is suspected. Follow-up is recommended. Focal areas ofintraparenchymal calcification left occipital Junction unchanged from 2016. 2-D echo showed normal EF. Neurology recommends to follow-up as an outpatient and EEG in the office. Otherwise patient wants to be discharged home today. Plan: Patient was continued on aspirin. Added statin. Patient underwent stroke workup including CT head, carotid duplex and 2-D echocardiogram as above. Patient was seen by neurology and vascular surgery. continued with neuro checks. CT head with contrast was done. Patient could not get MRI due to neurostimulator wires still remain under the skin. Continued the pain management and follow up closely. Patient was recommended to follow-up with neurology and vascular surgery in the clinic. Otherwise patient is stable to be discharged home. PHYSICAL EXAMINATION: Patient is lying in the bed comfortably, no acute distress, awake alert and oriented.. HEENT: Normocephalic. Neck is supple. Pupils reactive. Nostrils clear. Oral cavity is moist. Ears reveal no drainage. Neck reveals no JVD, carotid bruits, or thyromegaly. CHEST EXAMINATION: Trachea is central. Symmetrical expansion. Lung garland clear to auscultation and percussion. CARDIAC: Normal S1, S2 with no gallops. No murmurs ABDOMEN: Soft. Bowel sounds normal. No organomegaly. No abdominal bruits. Extremities: reveal no edema. No clubbing or cyanosis Neurologically awake, alert, oriented x3 with well-coordinated movements. No focal deficits noted Skin: No rash or skin lesions. Psychiatric: Coperative. Nonsuicidal Musculoskeletal: No joint swelling or deformity. Normal range of motion. Vital Signs - 24 hr 11/09/17 11/09/17 11/09/17 04:10 04:20 08:12 Temperature 98.5 F 98.2 F Pulse Rate [ 96 73 70 Right] Respiratory 17 18 16 Rate Blood Pressure 96/52 117/63 [Left Arm] O2 Sat by Pulse 93 L 96 Oximetry 11/09/17 11:36 Temperature 98.0 F Pulse Rate [ 68 Right] Respiratory 16 Rate Blood Pressure 123/70 [Left Arm] O2 Sat by Pulse 96 Oximetry Total time taken greater than 35 minutes including 18 minutes for counseling and coordination of care. Patient Condition at Discharge: Fair Plan - Discharge Summary New Discharge Prescriptions: New Aspirin 325 mg PO DAILY #30 tab Atorvastatin [Lipitor] 40 mg PO HS #30 tab Continue traMADol HCl [Ultram] 50 - 100 mg PO Q6H PRN MDD 400MG(8 TABS) PRN Reason: Pain Omeprazole 20 mg PO BID Discharge Medication List traMADol HCl [Ultram] 50 - 100 mg PO Q6H PRN MDD 400MG(8 TABS) 01/22/16 [History ] Omeprazole 20 mg PO BID 11/07/17 [History] Aspirin 325 mg PO DAILY #30 tab 11/09/17 [Rx] Atorvastatin [Lipitor] 40 mg PO HS #30 tab 11/09/17 [Rx] Follow up Appointment(s)/Referral(s): Judah Ramirez MD [Primary Care Provider] - 1-2 days (office closed call in am for appt) Becca Francisco MD [STAFF PHYSICIAN] - 1 Week (office will call patient with follow up) Viktor Birmingham MD [STAFF PHYSICIAN] - 1 Week Patient Instructions/Handouts: Ischemic Stroke (DC) Discharge Disposition: HOME SELF-CARE
== END 2017-11-09 18:09 | disposition home or self-care (01) | DRG 66 ==
LOC: EC 13:11 → 6SEL 14:44
PROVIDERS: ADMIT Internal Medicine; ATTEND Internal Medicine
DX: I63.9 Cerebral infarction, unspecified (principal); R47.01 Aphasia; R40.2363 Coma scale, best motor response, obeys commands, at hospital admission; R40.2143 Coma scale, eyes open, spontaneous, at hospital admission; R40.2253 Coma scale, best verbal response, oriented, at hospital admission; R29.700 NIHSS score 0; E78.1 Pure hyperglyceridemia; E78.5 Hyperlipidemia, unspecified; G89.29 Other chronic pain; I65.22 Occlusion and stenosis of left carotid artery; J44.9 Chronic obstructive pulmonary disease, unspecified; M79.7 Fibromyalgia; W18.30XA Fall on same level, unspecified, initial encounter; Z79.899 Other long term (current) drug therapy; Z87.891 Personal history of nicotine dependence; Z86.010 Personal history of colon polyps; Z80.0 Family history of malignant neoplasm of digestive organs; Z88.0 Allergy status to penicillin
CPT/HCPCS: 36415; 70450; 70460; 71046; 80053; 80061; 82550; 82553; 84484; 85025; 85610; 85730; 93005; 93306; 93880; 94760; 96361; 96374; 99285

== ENCOUNTER 2018-01-27 10:41 | Inpatient (IN) | payer MEDICARE, OTHER ==
--- NOTE | 2018-01-27 11:13 | ED ---
General Adult HPI - General Chief complaint: Recheck/Abnormal Lab/Rx Stated complaint: Headache Time Seen by Provider: 01/27/18 10:50 Source: patient, family, RN notes reviewed Mode of arrival: ambulatory Limitations: no limitations - History of Present Illness Initial comments: Patient is a pleasant 58-year-old female presenting to the emergency department complaining of headache. Headache is somewhat diffuse. Headache started yesterday around 6 PM. Patient did take some Excedrin with no improvement of symptoms. Headache remained this morning and patient took more Excedrin again. Discomfort was 9 or 10/10. Discomfort is currently 6/10. Patient did have similar symptoms of headache associated with a stroke back on November 04. Patient did have some speech deficits at that time which have resolved. Patient noticed no confusion today. No weakness. No facial droop. No arm weakness. Patient states she did not necessarily look in the mere assess for any facial droop. Family is present who was unaware of facial droop however when pointed out to him he does notice this. Onset of facial droop is unclear. - Related Data Home Medications Medication Instructions Recorded Confirmed traMADol HCl [Ultram] 100 mg PO TID 01/22/16 01/27/18 Aspirin 81 mg PO DAILY 01/27/18 01/27/18 Ranitidine HCl [Zantac] 150 mg PO DAILY 01/27/18 01/27/18 Previous Rx's Medication Instructions Recorded Atorvastatin [Lipitor] 40 mg PO HS #30 tab 11/09/17 Allergies Allergy/AdvReac Type Severity Reaction Status Date / Time amoxicillin Allergy Dyspnea Verified 01/27/18 11:47 Penicillins Allergy Rash/Hives/ Verified 01/27/18 11:47 SWELLING Review of Systems ROS Statement: Those systems with pertinent positive or pertinent negative responses have been documented in the HPI. ROS Other: All systems not noted in ROS Statement are negative. Constitutional: Denies: fever Eyes: Denies: eye pain ENT: Denies: ear pain Respiratory: Denies: cough Cardiovascular: Denies: chest pain Endocrine: Denies: fatigue Gastrointestinal: Denies: abdominal pain Genitourinary: Denies: dysuria Musculoskeletal: Denies: back pain Skin: Denies: rash Neurological: Reports: headache. Denies: weakness, confusion Past Medical History Past Medical History: COPD, Fibromyalgia Additional Past Medical History / Comment(s): HX POLYP, CHRONIC BACK PAIN, RSD IN LEFT HAND History of Any Multi-Drug Resistant Organisms: None Reported Past Surgical History: Appendectomy, Back Surgery, Breast Surgery, Cholecystectomy Additional Past Surgical History / Comment(s): LEFT BREAST BX BENIGN, COLONOSCOPY, NERVE BLOCK TO NECK X3. Past Anesthesia/Blood Transfusion Reactions: No Reported Reaction Past Psychological History: No Psychological Hx Reported Smoking Status: Former smoker Past Alcohol Use History: None Reported Past Drug Use History: None Reported - Past Family History Father Family Medical History: Cancer Additional Family Medical History / Comment(s): COLON Mother Family Medical History: Cancer Additional Family Medical History / Comment(s): LIVER General Exam Limitations: no limitations General appearance: alert, in no apparent distress Head exam: Present: atraumatic Eye exam: Present: normal appearance, PERRL, EOMI. Absent: nystagmus ENT exam: Present: normal oropharynx Neck exam: Present: normal inspection Respiratory exam: Present: normal lung sounds bilaterally Cardiovascular Exam: Present: regular rate, normal rhythm GI/Abdominal exam: Present: soft. Absent: tenderness Extremities exam: Present: normal inspection Neurological exam: Present: alert, oriented X3, CN II-XII intact (Except for left-sided facial droop) Expanded Neurological exam: Present: protecting the airway Patient oriented to: Present: person, place, time Speech: Present: fluid speech Cranial nerves: EOM's Intact: Normal Cerebellar function: Finger to Nose: Normal Sensory exam: Upper Extremity Light Touch: Normal, Lower Extremity Light Touch: Normal Motor strength exam: RUE: 5, LUE: 5, RLE: 5, LLE: 5 Eye Response: (4) open spontaneously Motor Response: (6) obeys commands Verbal Response: (5) oriented Psychiatric exam: Present: normal affect, normal mood Skin exam: Present: normal color Course Vital Signs 01/27/18 01/27/18 01/27/18 10:49 11:30 11:45 Temperature 98.3 F Pulse Rate 70 66 72 Respiratory 18 18 18 Rate Blood Pressure 177/84 167/78 152/76 O2 Sat by Pulse 99 99 97 Oximetry 01/27/18 01/27/18 12:00 12:30 Temperature Pulse Rate 66 65 Respiratory 18 16 Rate Blood Pressure 156/72 134/67 O2 Sat by Pulse 98 98 Oximetry - Reevaluation(s) Reevaluation #1: 01/27/18 11:10 Case was discussed with practitioner Gabriel from Dr. patrick office who did not necessarily test for facial droop. He is unclear whether or not this was present earlier. EKG Findings - EKG Comments: EKG Findings:: Normal sinus rhythm 64. NV 140. QRS 72. QT 428. QTC 441. Normal axis. Normal QRS. No acute ST change. Medical Decision Making - Medical Decision Making Patient reevaluated and slightly improved. Patient still has some facial droop however is able to overcome it. Case was discussed in detail with Dr. Purvis, who will admit for Dr. alaniz. Case was earlier discussed with Dr. quintanilla, who recommended admission with neurology consult as well as aspirin and Lipitor. - Lab Data Result diagrams: 01/27/18 12:14 01/27/18 12:14 Lab Results 01/27/18 01/27/18 01/27/18 Range/Units 12:14 12:14 12:14 WBC 13.1 H (3.8-10.6) k/uL RBC 4.42 (3.80-5.40) m/uL Hgb 13.7 (11.4-16.0) gm/dL Hct 40.3 (34.0-46.0) % MCV 91.2 (80.0-100.0) fL MCH 30.9 (25.0-35.0) pg MCHC 33.9 (31.0-37.0) g/dL RDW 12.8 (11.5-15.5) % Plt Count 320 (150-450) k/uL Neutrophils % 70 % Lymphocytes % 23 % Monocytes % 5 % Eosinophils % 1 % Basophils % 1 % Neutrophils # 9.1 H (1.3-7.7) k/uL Lymphocytes # 3.0 (1.0-4.8) k/uL Monocytes # 0.7 (0-1.0) k/uL Eosinophils # 0.1 (0-0.7) k/uL Basophils # 0.1 (0-0.2) k/uL PT 10.1 (9.0-12.0) sec INR 1.0 (<1.2) APTT 22.3 (22.0-30.0) sec Sodium 141 (137-145) mmol/L Potassium 4.5 (3.5-5.1) mmol/L Chloride 105 (98-107) mmol/L Carbon Dioxide 25 (22-30) mmol/L Anion Gap 11 mmol/L BUN 12 (7-17) mg/dL Creatinine 1.05 H (0.52-1.04) mg/dL Est GFR (CKD-EPI)AfAm 68 (>60 ml/min/1.73 sqM) Est GFR (CKD-EPI)NonAf 59 (>60 ml/min/1.73 sqM) Glucose 91 (74-99) mg/dL Calcium 9.9 (8.4-10.2) mg/dL Total Bilirubin 0.7 (0.2-1.3) mg/dL AST 26 (14-36) U/L ALT 29 (9-52) U/L Alkaline Phosphatase 98 (38-126) U/L Total Protein 7.5 (6.3-8.2) g/dL Albumin 4.3 (3.5-5.0) g/dL - Radiology Data Radiology results: report reviewed (Computed tomography scan of the brain shows subacute infarct right frontal lobe. CT angios of the head and neck does show some narrowing right middle cerebral artery. Atherosclerosis left internal carotid artery. 60% stenosis right carotid bulb and right ICA. Left-sided postsurgical changes. Moderate to severe atherosclerotic narrowing at the origin of the right vertebral artery.), image reviewed (Two-view chest x-ray shows no acute process.) Disposition Clinical Impression: Cerebrovascular accident Disposition: ADMITTED IP TO THIS HOSP Is patient prescribed a controlled substance at d/c from ED?: No Referrals: Judah Ramirez MD [Primary Care Provider] - 1-2 days Decision Time: 13:08
--- NOTE | 2018-01-27 11:31 | CT ---
EXAMINATION TYPE: CT brain wo con for TPA DATE OF EXAM: 01/27/2018 COMPARISON: 11/09/2017 HISTORY: 58-year-old female Headache, high blood pressure, recent carotid surgery-Left TECHNIQUE: Examination was done in axial plane without intravenous contrast. Coronal and sagittal r econstructions performed. CT DLP: 978.3 mGycm Automated exposure control for dose reduction was used. FINDINGS: The overall cortical and subcortical hypodensity in the left temporal parietal region shows improveme nt from 11/09/2017. There is gyral atrophy in this region suggesting encephalomalacia. There is medial cortical and subcortical hypodensity with loss of beauchamp-white matter differentiation a nd sulcal effacement in the lateral right frontal lobe. The degree of hypodensity suggests an acute t o subacute infarct. There is associated mild regional mass effect. Slight asymmetric flattening of th e right lateral ventricle is similar to prior suggesting congenital variation rather than flattening from mass effect. No midline shift or herniation is seen. No effacement of basal subarachnoid cistern s. No evidence for acute intracranial hemorrhage or extra-axial fluid collection. Stable punctate calcifications posterior left parietal region. Paranasal sinuses and mastoid air cells well pneumatized. Orbits and globes are intact. IMPRESSION: 1. New acute to subacute infarct lateral right frontal lobe. The degree of hypodensity suggests infar ct greater than 6 hours in duration. Correlate as to time since onset of symptoms. 2. No midline shift or hemorrhagic transformation. 3. The previous area of infarct in the left temporoparietal region shows evolution to chronic encepha lomalacia. Critical findings called to Dr. Bhatti in the ER at 11:25 AM.
--- NOTE | 2018-01-27 12:08 | CT ---
EXAMINATION TYPE: CT angio head neck DATE OF EXAM: 01/27/2018 COMPARISON: Correlation CT brain same day and carotid ultrasound 11/07/2017 HISTORY: 58-year-old female with weakness and left carotid surgery on December 29, 2017. TECHNIQUE: Contiguous axial scanning of the head and neck performed with IV Contrast, patient injecte d with 65 mL of Isovue 370. Coronal/sagittal MIP reconstructions performed. 3-D reconstructions gener ated on a dedicated independent workstation. CT DLP: 381.90 mGycm Automated exposure control for dose reduction was used. FINDINGS: Head: The vertebral, basilar, and internal carotid arteries are patent. Mild to moderate atherosclerotic narrowing of the left internal carotid artery at the level of the ca rotid siphon. Hypoplastic A1 segment left anterior cerebral artery. Proximal portions of both superior and inferior trunks of the M2 right middle cerebral artery appear attenuated relative to the contralateral side but are otherwise opacified. No aneurysmal change seen. NECK: Conventional arch vessel branching anatomy. The right common carotid artery is patent. There is focal atherosclerotic change of the right carotid bulb causing a moderate, 60% stenosis. The remainder of the right internal carotid artery is patent.. On the left, the common internal carotid arteries are patent without significant narrowing. There is some surrounding soft tissue thickening likely relating to postsurgical change. Possible moderate to severe atherosclerotic narrowing at the origin of the right vertebral artery. Th e vertebral arteries are otherwise codominant and patent throughout the course. IMPRESSION: HEAD: 1. PROXIMAL PORTIONS OF BOTH SUPERIOR AND INFERIOR TRUNKS OF THE M2 SEGMENT RIGHT MIDDLE CEREBRAL ART ADARSH ARE MILDLY NARROWED RELATIVE TO THE CONTRALATERAL SIDE. FINDINGS MAY REFLECT VASOSPASM OR RESIDUA L, NONOCCLUSIVE THROMBUS. 2. MODERATE ATHEROSCLEROTIC NARROWING OF THE LEFT INTERNAL CAROTID ARTERY AT THE LEVEL OF THE CAROTID SIPHON. NECK: 1. MODERATE, 60% STENOSIS INVOLVING THE RIGHT CAROTID BULB/PROXIMAL RIGHT ICA SECONDARY TO ATHEROSCLE ROTIC CHANGE. 2. POST SURGICAL CHANGES ON THE LEFT WITH THE LEFT CAROTID SYSTEM NOW PATENT WITHOUT SIGNIFICANT NARR OWING. 3. POSSIBLE MODERATE TO SEVERE ATHEROSCLEROTIC NARROWING AT THE ORIGIN OF THE RIGHT VERTEBRAL ARTERY.
--- NOTE | 2018-01-27 12:17 | XR ---
EXAMINATION TYPE: XR chest 2V DATE OF EXAM: 01/27/2018 COMPARISON: Prior chest x-ray 11/07/2017, CT 01/27/2018 HISTORY: Hypertension, altered mental status and headache TECHNIQUE: Frontal and lateral views of the chest are obtained. FINDINGS: There are overlying cardiac leads. No evident airspace disease, pneumothorax, or pleural e ffusion. Heart is stable. Pulmonary vascularity and renetta are unchanged. Lung volumes are somewhat low er. Osseous structures within normal limits. Surgical clips present in the upper abdomen. Mild anteri or wedge compression deformity near the thoracic lumbar junction causes some mild kyphosis. Aorta is dense. Prominent lung volume compatible with underlying emphysema. IMPRESSION: No acute cardiopulmonary process.
[2018-01-27] MEDS ORDERED: MORPHINE SULFATE 2 MG/ML SYRINGE IVP STA (12:39)
[2018-01-27 12:45] LABS: Basophils # (A) 0.1 k/uL (0-0.2); Basophils % (A) 1 %; Eosinophils # (A) 0.1 k/uL (0-0.7); Eosinophils % (A) 1 %; HCT 40.3 % (34.0-46.0); HGB 13.7 gm/dL (11.4-16.0); Lymphocytes % (A) 23 %; MCH 30.9 pg (25.0-35.0); MCHC 33.9 g/dL (31.0-37.0); MCV 91.2 fL (80.0-100.0); Mean Platelet Volume 7.6; Monocytes # (A) 0.7 k/uL (0-1.0); Monocytes % (A) 5 %; Neutrophils # (A) 9.1 k/uL (1.3-7.7); Neutrophils % (A) 70 %; Platelet Count 320 k/uL (150-450); RBC 4.42 m/uL (3.80-5.40); RDW 12.8 % (11.5-15.5); WBC 13.1 k/uL (3.8-10.6)
[2018-01-27 12:52] LABS: Albumin 4.3 g/dL (3.5-5.0); Calcium 9.9 mg/dL (8.4-10.2); Partial Thromboplastin Time 22.3 sec (22.0-30.0); Potassium 4.5 mmol/L (3.5-5.1); Prothrombin Time 10.1 sec (9.0-12.0); Total Bilirubin 0.7 mg/dL (0.2-1.3); Total Protein 7.5 g/dL (6.3-8.2)
[2018-01-27] MEDS ORDERED: ASPIRIN 325 MG TAB PO STA (13:09)
[2018-01-27 13:11] LABS: Creatine Kinase 127 U/L (30-135)
[2018-01-27] MEDS ORDERED: ATORVASTATIN 80 MG TAB PO STA (13:13)
[2018-01-27 13:24] LABS: Creatine Kinase MB 0.7 ng/mL (0.0-2.4); Troponin I <0.012 ng/mL (0.000-0.034)
--- NOTE | 2018-01-27 14:41 | P.HPIM ---
History of Present Illness patient is a very pleasant 58-year-old female has a recent stroke involving the left temporoparietal area and the residual weakness and facial droop on the left side, patient came in with the complaints of headache which she had when she had a stroke bitemporal headache. Patient had a CAT scan which showed incidental finding of acute to subacute infarct in the left frontal area patient does not have any new weakness or tingling numbness. Patient had a recent carotid endarterectomy quit smoking when she had her last stroke does take aspirin and a statin. Patient denied any fever chills seizure-like activity nausea vomiting photophobia. Review of Systems REVIEW OF SYSTEMS: CONSTITUTIONAL: No fever, no malaise, no fatigue. HEENT: No recent visual problems or hearing problems. Denied any sore throat. CARDIOVASCULAR: No chest pain, orthopnea, PND, no palpitations, no syncope. PULMONARY: No shortness of breath, no cough, no hemoptysis. GASTROINTESTINAL: No diarrhea, no nausea, no vomiting, no abdominal pain. Normoactive bowel sounds. NEUROLOGICAL: no weakness, no numbness. HEMATOLOGICAL: Denies any bleeding or petechiae. GENITOURINARY: Denies any burning micturition, frequency, or urgency. MUSCULOSKELETAL/RHEUMATOLOGICAL: Denies any joint pain, swelling, or any muscle pain. ENDOCRINE: Denies any polyuria or polydipsia. The rest of the 14-point review of systems is negative. Past Medical History Past Medical History: COPD, CVA/TIA, Fibromyalgia, Vascular Disorder Additional Past Medical History / Comment(s): 11/04/17 CVA with headache, syncope and slurred speech which resolved, elevated triglycerides, L caratid 70% stenosed and had endartectomy 12/29/17 at [facility], RSD L hand, benign colon polyps. History of Any Multi-Drug Resistant Organisms: None Reported Past Surgical History: Appendectomy, Back Surgery, Breast Surgery, Cholecystectomy, Tubal Ligation Additional Past Surgical History / Comment(s): 12/29/17 L caratid endartectomy at [facility], LEFT BREAST BX/LUMPECTOMY BENIGN, COLONOSCOPIES WITH BENIGN POLYPECTOMIES, NERVE BLOCK TO NECK X3, LOW BACK SURGERY, NEURO STIMULATOR IN LOW BACK NOT CONNECTED TO WIRES. Past Anesthesia/Blood Transfusion Reactions: No Reported Reaction Smoking Status: Former smoker - Past Family History Father Family Medical History: Cancer Additional Family Medical History / Comment(s): COLON CANCER. Father is . Mother Family Medical History: Cancer Additional Family Medical History / Comment(s): Mother is . She had cancer but pt does not recall what kind. Medications and Allergies Home Medications Medication Instructions Recorded Confirmed Type traMADol HCl [Ultram] 100 mg PO TID 01/22/16 01/27/18 History Atorvastatin [Lipitor] 40 mg PO HS #30 tab 11/09/17 01/27/18 Rx Aspirin 81 mg PO DAILY 01/27/18 01/27/18 History Ranitidine HCl [Zantac] 150 mg PO DAILY 01/27/18 01/27/18 History Allergies Allergy/AdvReac Type Severity Reaction Status Date / Time amoxicillin Allergy Dyspnea Verified 01/27/18 11:47 Penicillins Allergy Rash/Hives/ Verified 01/27/18 11:47 SWELLING Physical Exam Vitals: Vital Signs Temp Pulse Pulse Resp BP BP Pulse Ox 01/27/18 13:39 98 F 76 18 127/87 97 01/27/18 13:09 80 18 181/76 99 01/27/18 12:30 65 16 134/67 98 01/27/18 12:00 66 18 156/72 98 01/27/18 11:45 72 18 152/76 97 01/27/18 11:30 66 18 167/78 99 01/27/18 10:49 98.3 F 70 18 177/84 99 Intake and Output 01/26/18 01/27/18 01/27/18 22:59 06:59 14:59 Other: Weight 70.76 kg PHYSICAL EXAMINATION: GENERAL: The patient is alert and oriented x3, not in any acute distress. Well developed, well nourished. HEENT: Pupils are round and equally reacting to light. EOMI. No scleral icterus. No conjunctival pallor. Normocephalic, atraumatic. No pharyngeal erythema. No thyromegaly. CARDIOVASCULAR: S1 and S2 present. No murmurs, rubs, or gallops. PULMONARY: Chest is clear to auscultation, no wheezing or crackles. ABDOMEN: Soft, nontender, nondistended, normoactive bowel sounds. No palpable organomegaly. MUSCULOSKELETAL: No joint swelling or deformity. EXTREMITIES: No cyanosis, clubbing, or pedal edema. NEUROLOGICAL: Gross neurological examination did not reveal any new focal deficits. patient does have some facial droop on the left side which is from her old stroke SKIN: No rashes. Results CBC & Chem 7: 01/27/18 12:14 01/27/18 12:14 Labs: Abnormal Lab Results - Last 24 Hours (Table) 01/27/18 01/27/18 Range/Units 12:14 12:14 WBC 13.1 H (3.8-10.6) k/uL Neutrophils # 9.1 H (1.3-7.7) k/uL Creatinine 1.05 H (0.52-1.04) mg/dL Thrombosis Risk Factor Assmnt - Choose All That Apply Any of the Below Risk Factors Present?: Yes Each Factor Represents 1 point: Abnormal pulmonary function (COPD), Age 41-60 years, Obesity (BMI >25) Other Risk Factors: Yes Other congenital or acquired thrombophilia - If yes, enter type in comment: Yes Each Risk Factor Represents 5 Points: Stroke (< 1 month) Thrombosis Risk Factor Assessment Total Risk Factor Score: 8 Thrombosis Risk Factor Assessment Level: High Risk Assessment and Plan Plan: -possible ischemic infarct in the right frontal lobe: Patient may end up needing an MRI continue with aspirin and a statin neurological evaluation.neuro checks continue with gambling monitor patient had a echocardiogram during her previous hospitalization as a part of her evaluation of for stroke which did not show any significant abnormality patient had a CT angios which showed significant atherosclerotic coronary vascular disease but not significant for any intervention patient had a recent left carotid endarterectomy pain at [facility]. -recent left carotid endarterectomy -COPD without any acute exacerbation -Fibromyalgia chronic low back pain with neurostimulator in place.
[2018-01-27] MEDS: SODIUM CHLORIDE 0.9% 1,000 ML IV SCH (15:28)
[2018-01-27] MEDS: KETOROLAC 30 MG/ML 1 ML VIAL IVP PRN (16:57)
--- NOTE | 2018-01-27 20:45 | CONS ---
CONSULTATION DATE OF CONSULTATION: 01/27/2018. CHIEF COMPLAINT: Stroke. HISTORY OF PRESENT ILLNESS: Mrs. Oswald is a pleasant 58-year-old, female who is being evaluated by the neurology service per the request of Dr. Purvis for a stroke. The patient was brought into [facility] Emergency Room with the chief complaint of a headache. She states that she has been having frequent headaches over the past few days. She did go see Dr. Ramirez and she states that her blood pressure was significantly elevated at his office and she was sent to the emergency room for further management. In the emergency room, her blood pressure was elevated at 177/84. The patient does have history of ischemic stroke but she does not have any residual neurological defects from that stroke. She does take aspirin 81 mg daily at home. A CT scan of the brain was done in the emergency room which did show her old ischemic stroke involving the left temporoparietal region. There was evidence of an acute to subacute ischemic infarct involving the right frontal lobe which is new compared to her previous CT scan of the brain. A CT angiogram of the neck was done which showed a patent left internal carotid artery with surgical changes seen. There was approximately 60% stenosis on the right internal carotid artery. The patient does have a history of left carotid artery endarterectomy. Her CT angiogram of the brain showed mild narrowing of the M2 segment of the right middle cerebral artery. Her cardiac enzymes and comprehensive metabolic profiles were normal. Her CBC showed mild leukocytosis at 13.1. At the time of my evaluation, the patient is sitting up in her bed and appears to be in no acute distress. She denies any new neurological complaints. She reports improvement in her headaches since her admission. PAST MEDICAL HISTORY: Stroke, chronic obstructive pulmonary disease, fibromyalgia, carotid stenosis, history of appendectomy, left carotid endarterectomy, spine surgery, cholecystectomy, tubal ligation, and breast surgery. SOCIAL HISTORY: The patient is a former smoker. She denies any alcohol or drug use. FAMILY HISTORY: Positive for cancer. HOME MEDICATIONS: Reviewed in the chart. ALLERGIES: AMOXICILLIN AND PENICILLIN. REVIEW OF SYSTEMS: CONSTITUTIONAL: Negative. EYES: Negative. ENT: Negative. CARDIOVASCULAR: As mentioned above. RESPIRATORY: Positive for occasional shortness of breath. NEUROLOGICAL: As mentioned above. GASTROINTESTINAL: Negative. GENITOURINARY: Negative. PSYCHIATRIC: Negative. MUSCULOSKELETAL: Positive for occasional joint pain and low back pain. DERMATOLOGICAL: Negative. ENDOCRINE: Negative. PHYSICAL EXAM: Vital signs show a temperature of 97.9, pulse 77, respiration 18, blood pressure 127/77. Her previous blood pressure reading was 181/76. GENERAL APPEARANCE: The patient is a mildly obese female who appears to be in no acute distress. HEENT: Normocephalic, atraumatic, mild left facial drooping is seen. NECK: Supple with no masses felt. A healed scar is seen on the left side from her endarterectomy. CARDIOVASCULAR: Regular rate and rhythm. ABDOMEN: Nontender nondistended. Extremities showed no edema or clubbing. Neurological exam: The patient is awake and oriented x3. Speech and language are normal. Strength is full in all 4 extremities. Sensory exam was normal to light touch in all 4 extremities. She did have reduced light touch sensation in the left neck compared to the right which has been present since her surgery. No pronator drift is seen. Cranial nerve testing showed mild left facial drooping. IMPRESSION: 1. Acute ischemic stroke, right frontal lobe. 2. Left facial weakness. 3. History of old ischemic stroke. 4. Hypertension. 5. Headache, resolved. RECOMMENDATION: The patient did suffer an acute ischemic stroke involving the right frontal lobe. Her blood pressure has been elevated but she is not on any antihypertensive medications. Given her blood pressure readings and given her history of headaches, I will start her on verapamil SR 120 mg daily. I will switch her aspirin to Plavix 75 mg daily. I will order a fasting lipid panel, EEG, and serum homocystine level. Continue Lipitor for statin therapy. Continue neuro checks and IV hydration. As for her right middle cerebral artery, narrowing seen on her CT angiogram of the brain, I do recommend outpatient follow up with a neuro interventionalist. Continue the rest of your current workup and management. I will continue to follow with you. Further recommendations to follow. Thank you for allowing me to participate in the care of your patient. If you have any questions, please feel free to contact me. RADHA / IJN: [id number] /
[2018-01-27] MEDS: FAMOTIDINE 20 MG TAB PO SCH (21:10)
[2018-01-28] MEDS: SODIUM CHLORIDE 0.9% 1,000 ML IV SCH ×2 (03:40→12:18)
[2018-01-28] MEDS: KETOROLAC 30 MG/ML 1 ML VIAL IVP PRN (06:42)
[2018-01-28 07:11] LABS: HDL Cholesterol 36 mg/dL (40-60)
[2018-01-28 08:57] LABS: Cholesterol 94 mg/dL (<200)
[2018-01-28 08:58] LABS: LDL Cholesterol,Calculated 36 mg/dL (0-99); Triglycerides 110 mg/dL (<150)
[2018-01-28] MEDS ORDERED: ASPIRIN 325 MG TAB PO SCH (09:00)
[2018-01-28] MEDS ORDERED: VERAPAMIL SR 120 MG TABLET.ER PO SCH (09:00)
[2018-01-28] MEDS ORDERED: CLOPIDOGREL 75 MG TAB PO SCH (09:00)
[2018-01-28] MEDS: FAMOTIDINE 20 MG TAB PO SCH (09:30)
[2018-01-28 09:46] VITALS: TEMP 97.8
[2018-01-28 12:26] VITALS: BP 157/76; PULSE 65; RESP 20
--- NOTE | 2018-01-28 12:48 | P.DS ---
Providers Date of admission: 01/27/18 13:09 Attending physician: Luz Purvis Consults: 01/27/18 13:09 Consult Physician Urgent Consulting Provider: Becca Francisco Consult Reason/Comments: cva, review cta Do you want consulting provider notified?: Yes Primary care physician: Ashley Lima [facility] Course: patient is a very pleasant 58-year-old female has a recent stroke involving the left temporoparietal area and the residual weakness and facial droop on the left side, patient came in with the complaints of headache which she had when she had a stroke bitemporal headache. Patient had a CAT scan which showed incidental finding of acute to subacute infarct in the left frontal area patient does not have any new weakness or tingling numbness. Patient had a recent carotid endarterectomy quit smoking when she had her last stroke does take aspirin and a statin. Patient denied any fever chills seizure-like activity nausea vomiting photophobia. 01/28/2018 Patient was evaluated by neurology in the recommending switching aspirin to Plavix. After the EEG if cleared by neurology patient will be discharged today. I do not believe patient will need verapamil as her headache resolved before that medication and had a blood pressures only temporary elevated does of the ischemic stroke she had yesterday. Her blood pressure is actually down most of the time. my concern is hypotension with verapamil and bradycardia with verapamil. PHYSICAL EXAMINATION: GENERAL: The patient is alert and oriented x3, not in any acute distress. Well developed, well nourished. HEENT: Pupils are round and equally reacting to light. EOMI. No scleral icterus. No conjunctival pallor. Normocephalic, atraumatic. No pharyngeal erythema. No thyromegaly. CARDIOVASCULAR: S1 and S2 present. No murmurs, rubs, or gallops. PULMONARY: Chest is clear to auscultation, no wheezing or crackles. ABDOMEN: Soft, nontender, nondistended, normoactive bowel sounds. No palpable organomegaly. MUSCULOSKELETAL: No joint swelling or deformity. EXTREMITIES: No cyanosis, clubbing, or pedal edema. NEUROLOGICAL: Gross neurological examination did not reveal any focal deficits. SKIN: No rashes. Assessment and Plan Plan: -possible ischemic infarct in the right frontal lobe: Patient will be switched to Plavix aspirin will be discontinued and continue statin neurological evaluation.neuro checks continue with cafeteria monitor patient had a echocardiogram during her previous hospitalization as a part of her evaluation of for stroke which did not show any significant abnormality patient had a CT angios which showed significant atherosclerotic coronary vascular disease but not significant for any intervention patient had a recent left carotid endarterectomy pain at [facility]. -recent left carotid endarterectomy -COPD without any acute exacerbation -Fibromyalgia chronic low back pain with neurostimulator in place. Plan - Discharge Summary Discharge Rx Participant: Yes New Discharge Prescriptions: New Clopidogrel Bisulfate [Plavix] 75 mg PO DAILY #30 tab Discontinued Aspirin 81 mg PO DAILY No Action traMADol HCl [Ultram] 100 mg PO TID Atorvastatin [Lipitor] 40 mg PO HS #30 tab Ranitidine HCl [Zantac] 150 mg PO DAILY Discharge Medication List traMADol HCl [Ultram] 100 mg PO TID 01/22/16 [History] Atorvastatin [Lipitor] 40 mg PO HS #30 tab 11/09/17 [Rx] Ranitidine HCl [Zantac] 150 mg PO DAILY 01/27/18 [History] Clopidogrel Bisulfate [Plavix] 75 mg PO DAILY #30 tab 01/28/18 [Rx] Follow up Appointment(s)/Referral(s): Judah Ramirez MD [Primary Care Provider] - 02/04/18 2:10 pm Becca Francisco MD [STAFF PHYSICIAN] - 3 Weeks (Office will call with follow up appointment.) Patient Instructions/Handouts: Ischemic Stroke (DC) Discharge Disposition: HOME SELF-CARE
--- NOTE | 2018-01-28 17:49 | EEG ---
ELECTROENCEPHALOGRAM REPORT DATE OF SERVICE: 01/28/2018. REASON FOR TESTING: Stroke and headache. DESCRIPTION OF THE PROCEDURE: This EEG was performed using a 21 channel digital electroencephalograph following international 10-20 system. DESCRIPTION OF THE RECORDING: From the beginning of the tracing, with patient's eyes closed, the background rhythm was mostly consisting of 8-9 Hz alpha frequency in the posterior occipital leads. No obvious asymmetry is seen. Photic stimulation was performed with a minimal driving response seen. No pathological waves were elicited. Hyperventilation was not performed. Rare movement artifacts are seen. The patient does reach stage II of sleep during the tracing and occasional sleep spindles and K complexes are seen. No epileptiform discharges were seen. Her EKG lead showed a regular rate and rhythm. INTERPRETATION: This asleep and awake EEG can be considered within normal limits. There is no asymmetry seen. No epileptiform discharges were noticed. The absence of epileptiform discharges does not rule out the diagnosis of epilepsy; therefore clinical correlation is recommended. RADHA / PARAG: [id number] /
[2018-01-28] MEDS ORDERED: ATORVASTATIN 80 MG TAB PO SCH (21:00)
== END 2018-01-28 13:37 | disposition home or self-care (01) | DRG 65 ==
LOC: EC 10:41 → 6SEL 13:09
PROVIDERS: ADMIT Internal Medicine; ATTEND Internal Medicine
DX: I63.9 Cerebral infarction, unspecified (principal); I69.354 Hemiplegia and hemiparesis following cerebral infarction affecting left non-dominant side; D72.829 Elevated white blood cell count, unspecified; E78.1 Pure hyperglyceridemia; G89.29 Other chronic pain; I10 Essential (primary) hypertension; I25.10 Atherosclerotic heart disease of native coronary artery without angina pectoris; J44.9 Chronic obstructive pulmonary disease, unspecified; M79.7 Fibromyalgia; Z79.82 Long term (current) use of aspirin; Z80.0 Family history of malignant neoplasm of digestive organs; Z86.010 Personal history of colon polyps; Z87.891 Personal history of nicotine dependence; Z88.1 Allergy status to other antibiotic agents; Z88.0 Allergy status to penicillin; Z90.49 Acquired absence of other specified parts of digestive tract; M54.5 Low back pain
CPT/HCPCS: 36415; 70450; 70496; 70498; 71046; 80053; 80061; 82550; 82553; 83090; 84484; 85025; 85610; 85730; 93005; 95816; 96374; 99285

== ENCOUNTER 2018-01-31 22:50 | Emergency (ER) | payer MEDICARE, OTHER ==
[2018-01-31 22:53] VITALS: RESP 16; TEMP 98.2
[2018-01-31] MEDS ORDERED: LABETALOL 5 MG/ML VIAL MDV IVP STA (23:00)
[2018-01-31] MEDS ORDERED: SODIUM CHLORIDE 0.9% 1,000 ML IV STA (23:00)
--- NOTE | 2018-01-31 23:03 | ED ---
General Adult HPI - General Chief complaint: Recheck/Abnormal Lab/Rx Stated complaint: hypertension Time Seen by Provider: 01/31/18 22:56 Source: patient, RN notes reviewed, old records reviewed Mode of arrival: ambulatory Limitations: no limitations - History of Present Illness Initial comments: This is a 50-year-old female the ER for evaluation. Patient has positive history of CVA. Patient coming in confused concerned over blood pressure and abnormally elevated blood pressure. She denies any significant complaints no neurological complaints no headache no chest pain or shortness of breath. Patient has been taking blood pressure medication as directed - Related Data Home Medications Medication Instructions Recorded Confirmed traMADol HCl [Ultram] 100 mg PO TID 01/22/16 01/27/18 Ranitidine HCl [Zantac] 150 mg PO DAILY 01/27/18 01/27/18 Previous Rx's Medication Instructions Recorded Atorvastatin [Lipitor] 40 mg PO HS #30 tab 11/09/17 Clopidogrel Bisulfate [Plavix] 75 mg PO DAILY #30 tab 01/28/18 Metoprolol Tartrate [Lopressor] 50 mg PO BID #60 tab 02/01/18 Allergies Allergy/AdvReac Type Severity Reaction Status Date / Time amoxicillin Allergy Dyspnea Verified 01/31/18 22:53 Penicillins Allergy Rash/Hives/ Verified 01/31/18 22:53 SWELLING Review of Systems ROS Statement: Those systems with pertinent positive or pertinent negative responses have been documented in the HPI. ROS Other: All systems not noted in ROS Statement are negative. Past Medical History Past Medical History: COPD, CVA/TIA, Fibromyalgia, Vascular Disorder Additional Past Medical History / Comment(s): 11/04/17 CVA with headache, syncope and slurred speech which resolved, elevated triglycerides, L caratid 70% stenosed and had endartectomy 12/29/17 at [facility], RSD L hand, benign colon polyps. History of Any Multi-Drug Resistant Organisms: None Reported Past Surgical History: Appendectomy, Back Surgery, Breast Surgery, Cholecystectomy, Tubal Ligation Additional Past Surgical History / Comment(s): 12/29/17 L caratid endartectomy at [facility], LEFT BREAST BX/LUMPECTOMY BENIGN, COLONOSCOPIES WITH BENIGN POLYPECTOMIES, NERVE BLOCK TO NECK X3, LOW BACK SURGERY, NEURO STIMULATOR IN LOW BACK NOT CONNECTED TO WIRES. Past Anesthesia/Blood Transfusion Reactions: No Reported Reaction Past Psychological History: No Psychological Hx Reported Smoking Status: Former smoker - Past Family History Father Family Medical History: Cancer Additional Family Medical History / Comment(s): COLON CANCER. Father is . Mother Family Medical History: Cancer Additional Family Medical History / Comment(s): Mother is . She had cancer but pt does not recall what kind. General Exam Limitations: no limitations General appearance: alert, in no apparent distress Head exam: Present: atraumatic, normocephalic, normal inspection Eye exam: Present: normal appearance, PERRL, EOMI. Absent: scleral icterus, conjunctival injection, periorbital swelling ENT exam: Present: normal exam, mucous membranes moist Neck exam: Present: normal inspection. Absent: tenderness, meningismus, lymphadenopathy Respiratory exam: Present: normal lung sounds bilaterally. Absent: respiratory distress, wheezes, rales, rhonchi, stridor Cardiovascular Exam: Present: regular rate, normal rhythm, normal heart sounds. Absent: systolic murmur, diastolic murmur, rubs, gallop, clicks GI/Abdominal exam: Present: soft, normal bowel sounds. Absent: distended, tenderness, guarding, rebound, rigid Extremities exam: Present: normal inspection, full ROM, normal capillary refill. Absent: tenderness, pedal edema, joint swelling, calf tenderness Back exam: Present: normal inspection Neurological exam: Present: alert, oriented X3, CN II-XII intact Psychiatric exam: Present: normal affect, normal mood Skin exam: Present: warm, dry, intact, normal color. Absent: rash Course Vital Signs 01/31/18 01/31/18 01/31/18 22:51 22:53 23:22 Temperature 98.2 F Pulse Rate 80 70 68 Respiratory 16 16 16 Rate Blood Pressure 197/95 190/98 172/82 O2 Sat by Pulse 99 99 99 Oximetry 01/31/18 02/01/18 23:59 00:33 Temperature Pulse Rate 69 68 Respiratory 16 16 Rate Blood Pressure 147/74 133/87 O2 Sat by Pulse 98 100 Oximetry - Reevaluation(s) Reevaluation #1: Records thoroughly reviewed as well as ER visit Patient has significant improvement pressure currently Patient not having any strokelike symptoms EKG Findings - EKG Comments: EKG Findings:: EKG shows normal sinus rhythm rate of 74, ME 150, QRS 66, QTc 432 Medical Decision Making - Medical Decision Making 50 female the ER for evaluation of blood pressure control, patient has adequate blood pressure control currently and can be discharged home - Lab Data Result diagrams: 01/31/18 23:05 01/31/18 23:05 Lab Results 01/31/18 01/31/18 01/31/18 Range/Units 23:05 23:05 23:05 WBC 12.3 H (3.8-10.6) k/uL RBC 4.36 (3.80-5.40) m/uL Hgb 13.2 (11.4-16.0) gm/dL Hct 39.7 (34.0-46.0) % MCV 91.0 (80.0-100.0) fL MCH 30.2 (25.0-35.0) pg MCHC 33.2 (31.0-37.0) g/dL RDW 12.9 (11.5-15.5) % Plt Count 360 (150-450) k/uL Neutrophils % 58 % Lymphocytes % 33 % Monocytes % 5 % Eosinophils % 3 % Basophils % 1 % Neutrophils # 7.1 (1.3-7.7) k/uL Lymphocytes # 4.0 (1.0-4.8) k/uL Monocytes # 0.6 (0-1.0) k/uL Eosinophils # 0.4 (0-0.7) k/uL Basophils # 0.1 (0-0.2) k/uL PT (9.0-12.0) sec INR (<1.2) APTT (22.0-30.0) sec Sodium 141 (137-145) mmol/L Potassium 3.9 (3.5-5.1) mmol/L Chloride 106 (98-107) mmol/L Carbon Dioxide 26 (22-30) mmol/L Anion Gap 9 mmol/L BUN 18 H (7-17) mg/dL Creatinine 1.01 (0.52-1.04) mg/dL Est GFR (CKD-EPI)AfAm 71 (>60 ml/min/1.73 sqM) Est GFR (CKD-EPI)NonAf 62 (>60 ml/min/1.73 sqM) Glucose 104 H (74-99) mg/dL Calcium 9.8 (8.4-10.2) mg/dL Phosphorus 4.9 H (2.5-4.5) mg/dL Magnesium 1.8 (1.6-2.3) mg/dL Total Bilirubin 0.5 (0.2-1.3) mg/dL AST 34 (14-36) U/L ALT 31 (9-52) U/L Alkaline Phosphatase 105 (38-126) U/L Total Creatine Kinase 335 H (30-135) U/L CK-MB (CK-2) 2.3 (0.0-2.4) ng/mL CK-MB (CK-2) Rel Index 0.7 Troponin I <0.012 (0.000-0.034) ng/mL Total Protein 7.7 (6.3-8.2) g/dL Albumin 4.4 (3.5-5.0) g/dL 01/31/18 Range/Units 23:05 WBC (3.8-10.6) k/uL RBC (3.80-5.40) m/uL Hgb (11.4-16.0) gm/dL Hct (34.0-46.0) % MCV (80.0-100.0) fL MCH (25.0-35.0) pg MCHC (31.0-37.0) g/dL RDW (11.5-15.5) % Plt Count (150-450) k/uL Neutrophils % % Lymphocytes % % Monocytes % % Eosinophils % % Basophils % % Neutrophils # (1.3-7.7) k/uL Lymphocytes # (1.0-4.8) k/uL Monocytes # (0-1.0) k/uL Eosinophils # (0-0.7) k/uL Basophils # (0-0.2) k/uL PT 9.6 (9.0-12.0) sec INR 1.0 (<1.2) APTT 22.1 (22.0-30.0) sec Sodium (137-145) mmol/L Potassium (3.5-5.1) mmol/L Chloride (98-107) mmol/L Carbon Dioxide (22-30) mmol/L Anion Gap mmol/L BUN (7-17) mg/dL Creatinine (0.52-1.04) mg/dL Est GFR (CKD-EPI)AfAm (>60 ml/min/1.73 sqM) Est GFR (CKD-EPI)NonAf (>60 ml/min/1.73 sqM) Glucose (74-99) mg/dL Calcium (8.4-10.2) mg/dL Phosphorus (2.5-4.5) mg/dL Magnesium (1.6-2.3) mg/dL Total Bilirubin (0.2-1.3) mg/dL AST (14-36) U/L ALT (9-52) U/L Alkaline Phosphatase (38-126) U/L Total Creatine Kinase (30-135) U/L CK-MB (CK-2) (0.0-2.4) ng/mL CK-MB (CK-2) Rel Index Troponin I (0.000-0.034) ng/mL Total Protein (6.3-8.2) g/dL Albumin (3.5-5.0) g/dL Disposition Clinical Impression: Hypertension Disposition: HOME SELF-CARE Condition: Good Instructions: Hypertension (ED) Prescriptions: Metoprolol Tartrate [Lopressor] 50 mg PO BID #60 tab Is patient prescribed a controlled substance at d/c from ED?: No Referrals: Judah Ramirez MD [Primary Care Provider] - 1-2 days
[2018-01-31 23:17] LABS: Basophils # (A) 0.1 k/uL (0-0.2); Basophils % (A) 1 %; Eosinophils # (A) 0.4 k/uL (0-0.7); Eosinophils % (A) 3 %; HCT 39.7 % (34.0-46.0); HGB 13.2 gm/dL (11.4-16.0); Lymphocytes % (A) 33 %; MCH 30.2 pg (25.0-35.0); MCHC 33.2 g/dL (31.0-37.0); Mean Platelet Volume 6.7; Monocytes # (A) 0.6 k/uL (0-1.0); Monocytes % (A) 5 %; Neutrophils # (A) 7.1 k/uL (1.3-7.7); Neutrophils % (A) 58 %; Platelet Count 360 k/uL (150-450); RBC 4.36 m/uL (3.80-5.40); RDW 12.9 % (11.5-15.5); WBC 12.3 k/uL (3.8-10.6)
[2018-01-31 23:26] LABS: Partial Thromboplastin Time 22.1 sec (22.0-30.0); Prothrombin Time 9.6 sec (9.0-12.0)
[2018-01-31 23:28] LABS: Albumin 4.4 g/dL (3.5-5.0); Calcium 9.8 mg/dL (8.4-10.2); Magnesium 1.8 mg/dL (1.6-2.3); Phosphorus 4.9 mg/dL (2.5-4.5); Potassium 3.9 mmol/L (3.5-5.1); Total Bilirubin 0.5 mg/dL (0.2-1.3); Total Protein 7.7 g/dL (6.3-8.2)
[2018-01-31 23:41] LABS: Creatine Kinase 335 U/L (30-135)
[2018-01-31 23:54] LABS: Creatine Kinase MB 2.3 ng/mL (0.0-2.4); Troponin I <0.012 ng/mL (0.000-0.034)
[2018-02-01 00:44] VITALS: BP 133/87; PULSE 68
== END 2018-02-01 00:41 | disposition home or self-care (01) ==
LOC: EC 22:50
DX: I10 Essential (primary) hypertension (principal); Z87.891 Personal history of nicotine dependence; Z88.0 Allergy status to penicillin; Z79.891 Long term (current) use of opiate analgesic; Z79.899 Other long term (current) drug therapy; Z86.010 Personal history of colon polyps; Z98.890 Other specified postprocedural states
CPT/HCPCS: 36415; 80053; 82550; 82553; 83735; 84100; 84484; 85025; 85610; 85730; 93005; 96361; 96374; 99284

== ENCOUNTER → 2018-03-15 | Outpatient (CLI) | payer MEDICARE, OTHER ==
[2018-03-15 12:34] LABS: Basophils # (A) 0.1 k/uL (0-0.2); Basophils % (A) 1 %; Eosinophils # (A) 0.2 k/uL (0-0.7); Eosinophils % (A) 2 %; HCT 43.4 % (34.0-46.0); HGB 14.4 gm/dL (11.4-16.0); Lymphocytes # (A) 1.7 k/uL (1.0-4.8); Lymphocytes % (A) 17 %; MCH 30.9 pg (25.0-35.0); MCHC 33.3 g/dL (31.0-37.0); MCV 92.8 fL (80.0-100.0); Mean Platelet Volume 7.5; Monocytes # (A) 0.4 k/uL (0-1.0); Monocytes % (A) 4 %; Neutrophils % (A) 77 %; Platelet Count 309 k/uL (150-450); RBC 4.68 m/uL (3.80-5.40); RDW 12.8 % (11.5-15.5); WBC 10.4 k/uL (3.8-10.6)
[2018-03-15 16:42] LABS: Albumin 4.5 g/dL (3.80-4.90); Albumin/Globulin Ratio 2.14 (1.20-2.10); Anion Gap 7.9 mmol/L (4.00-12.00); Calcium 9.4 mg/dL (8.7-10.3); Carbon Dioxide 26.1 mmol/L (21.6-31.8); Globulin 2.1 g/dL (2.1-3.7); Potassium 4.3 mmol/L (3.5-5.5); Total Bilirubin 0.6 mg/dL (0.2-1.2); Total Protein 6.6 g/dL (6.2-8.2)
[2018-03-15 16:49] LABS: T4, Free (Free Thyroxine) 1.3 ng/dL (0.80-1.80)
[2018-03-15 17:04] LABS: Vitamin D 25 Hydroxy 11.1 ng/mL (30.0-100.0)
== END ==
LOC: LABWHC1 10:51
PROVIDERS: ATTEND Nurse Practitioner Acute Care
DX: E55.9 Vitamin D deficiency, unspecified (principal); R41.3 Other amnesia; R53.83 Other fatigue
CPT/HCPCS: 36415; 80053; 82306; 82607; 84207; 84439; 84443; 84481; 85025

== ENCOUNTER → 2018-04-16 | Outpatient (CLI) | payer MEDICARE, OTHER ==
--- NOTE | 2018-04-16 14:50 | CT ---
EXAMINATION TYPE: CT brain wo con DATE OF EXAM: 04/16/2018 COMPARISON: Prior CT brain 01/27/2018 HISTORY: Cerebral vascular accident CT DLP: 282.14 mGycm Automated exposure control for dose reduction was used. Helical acquisition through the brain. FINDINGS: Brain density is remarkable for abnormal low attenuation along the left posterior temporal lobe as on prior, there is some associated parenchymal calcifications within the left occipital lobe. The previ ously identified vague area of low-attenuation in the right frontal lobe is more well-defined and low er in density than on prior. There is no evident hemorrhage or hydrocephalus. Calvarium is intact. r-fluid levels are present in the maxillary sinuses which have developed in the interval. IMPRESSION: FINDINGS COMPATIBLE WITH PATIENT'S HISTORY OF CEREBROVASCULAR ACCIDENT.
--- NOTE | 2018-04-16 15:39 | CT ---
EXAMINATION TYPE: CT angio neck DATE OF EXAM: 04/16/2018 HISTORY: Carotid stenosis COMPARISON: Prior CTA neck 01/27/2018 CT DLP: 1131.01 mGycm. Automated Exposure Control for Dose Reduction was Utilized. TECHNIQUE: CTA scan of the neck is performed with IV Contrast, patient injected with 65 mL of Isovue 370, axial images are obtained, coronal and sagittal reformatted images are reviewed. Three-D recons tructed images are created on an independent workstation and reviewed. FINDINGS: Carotid/Vascular Structures: Transverse aorta is patent. There are super aortic branch vessels are pa tent, the left and right subclavian arteries, left and right common carotid arteries, innominate fernandez ry, left and right vertebral arteries are patent. The left internal and external carotid arteries are patent. The right external carotid artery is campos nt, there is atheromatous plaque causing stenosis of the proximal internal carotid artery as on prior exam, suggestion of a web present on post process images in the distribution of the proximal interna l carotid artery. High-grade stenosis on axial scanning is estimated at 70% diameter reduction or gre ater. Other: No other interval change. IMPRESSION: Hemodynamic significant stenosis of the proximal internal carotid artery on the right, ir regular plaque makes accurate assessment somewhat limited, consider correlation with catheter directe d angiography or carotid Doppler duplex.
== END | disposition home or self-care (01) ==
LOC: RADCTMAIN 13:04
PROVIDERS: ATTEND Internal Medicine Cardiovascular Disease
DX: I63.131 Cerebral infarction due to embolism of right carotid artery (principal)
CPT/HCPCS: 82565; 84520; 70450; 70498; 36415; Q9967

== ENCOUNTER 2018-05-05 12:29 | Observation (INO) | payer MEDICARE, OTHER ==
[2018-05-05 14:16] LABS: Basophils # (A) 0.1 k/uL (0-0.2); Basophils % (A) 1 %; Eosinophils # (A) 0.3 k/uL (0-0.7); Eosinophils % (A) 3 %; HCT 43.2 % (34.0-46.0); HGB 13.6 gm/dL (11.4-16.0); Lymphocytes # (A) 2.6 k/uL (1.0-4.8); Lymphocytes % (A) 25 %; MCHC 31.5 g/dL (31.0-37.0); MCV 92.1 fL (80.0-100.0); Mean Platelet Volume 7.1; Monocytes # (A) 0.4 k/uL (0-1.0); Monocytes % (A) 4 %; Neutrophils # (A) 6.9 k/uL (1.3-7.7); Neutrophils % (A) 66 %; Platelet Count 326 k/uL (150-450); RBC 4.69 m/uL (3.80-5.40); RDW 13.1 % (11.5-15.5); WBC 10.4 k/uL (3.8-10.6)
[2018-05-05 14:18] LABS: INR 0.9 (<1.2); Partial Thromboplastin Time 23.7 sec (22.0-30.0)
[2018-05-05 14:20] LABS: Albumin 4.1 g/dL (3.5-5.0); Calcium 9.9 mg/dL (8.4-10.2); Potassium 4.2 mmol/L (3.5-5.1); Total Bilirubin 0.4 mg/dL (0.2-1.3); Total Protein 7.3 g/dL (6.3-8.2)
--- NOTE | 2018-05-05 14:29 | ED ---
General Adult HPI - General Chief complaint: Dizziness Stated complaint: LIGHTHEADED AND DIZZINESS Time Seen by Provider: 05/05/18 13:11 Source: patient, RN notes reviewed Mode of arrival: wheelchair Limitations: no limitations - History of Present Illness Initial comments: Patient's a 58-year-old female presented to the emergency room today with a chief complaint of dizziness. Patient states that she has had dizziness off and on over the last several weeks. She does admit that she has been seen the family physician, neurologist, radiology ct technologist for these symptoms. She does admit that she had a recent CT of the neck. She states that she was told that she had an occlusion. Patient states that dizziness is a unsteady feeling when she is on her feet like she is going to fall. She states she's come close but has not had any falls. She admits that dizziness even occurs when she is at rest and sitting or laying down. Patient denies any other complaints currently. - Related Data Home Medications Medication Instructions Recorded Confirmed traMADol HCl [Ultram] 100 mg PO TID 01/22/16 05/05/18 Aspirin/Acetaminophen/Caffeine 2 tab PO Q8HR PRN 05/05/18 05/05/18 [Excedrin Migraine Caplet] Metoprolol Tartrate [Lopressor] 25 mg PO BID 05/05/18 05/05/18 Nitrofurantoin Monohyd/M-Cryst 100 mg PO Q12HR 05/05/18 05/05/18 [Macrobid] Sulfamethox-Tmp 800-160Mg [Bactrim 1 tab PO Q12HR 05/05/18 05/05/18 DS 800-160 mg] Verapamil HCl [Verapamil ER] 120 mg PO DAILY 05/05/18 05/05/18 Previous Rx's Medication Instructions Recorded Atorvastatin [Lipitor] 40 mg PO HS #30 tab 11/09/17 Clopidogrel Bisulfate [Plavix] 75 mg PO DAILY #30 tab 01/28/18 Allergies Allergy/AdvReac Type Severity Reaction Status Date / Time amoxicillin Allergy Dyspnea Verified 05/05/18 14:24 nickel AdvReac Rash/Hives Verified 05/05/18 14:24 Penicillins AdvReac Rash/Hives/ Verified 05/05/18 14:24 SWELLING Review of Systems ROS Statement: Those systems with pertinent positive or pertinent negative responses have been documented in the HPI. ROS Other: All systems not noted in ROS Statement are negative. Past Medical History Past Medical History: COPD, CVA/TIA, Fibromyalgia, Vascular Disorder Additional Past Medical History / Comment(s): 11/04/17 CVA with headache, syncope and slurred speech which resolved, elevated triglycerides, L caratid 70% stenosed and had endartectomy 12/29/17 at [facility], RSD L hand, benign colon polyps. History of Any Multi-Drug Resistant Organisms: None Reported Past Surgical History: Appendectomy, Back Surgery, Breast Surgery, Cholecystectomy, Tubal Ligation Additional Past Surgical History / Comment(s): 12/29/17 L caratid endartectomy at [facility], LEFT BREAST BX/LUMPECTOMY BENIGN, COLONOSCOPIES WITH BENIGN POLYPECTOMIES, NERVE BLOCK TO NECK X3, LOW BACK SURGERY, NEURO STIMULATOR IN LOW BACK NOT CONNECTED TO WIRES. Past Anesthesia/Blood Transfusion Reactions: No Reported Reaction Past Psychological History: No Psychological Hx Reported Smoking Status: Former smoker Past Alcohol Use History: None Reported Past Drug Use History: None Reported - Past Family History Father Family Medical History: Cancer Additional Family Medical History / Comment(s): COLON CANCER. Father is . Mother Family Medical History: Cancer Additional Family Medical History / Comment(s): Mother is . She had cancer but pt does not recall what kind. General Exam - General Exam Comments Initial Comments: General: The patient is awake and alert, in no distress, and does not appear acutely ill. Eye: Pupils are equal, round and reactive to light, extra-ocular movements are intact. No nystagmus. There is normal conjunctiva bilaterally. No signs of icterus. Ears, nose, mouth and throat: There are moist mucous membranes and no oral lesions. Neck: The neck is supple, there is no tenderness or JVD. Cardiovascular: There is a regular rate and rhythm. No murmur, rub or gallop is appreciated. Respiratory: Lungs are clear to auscultation, respirations are non-labored, breath sounds are equal. No wheezes, stridor, rales, or rhonchi. Gastrointestinal: Soft, non-distended, non-tender abdomen without masses or organomegaly noted. There is no rebound or guarding present. No CVA tenderness. Musculoskeletal: Normal ROM, no tenderness. Strength 5/5. Sensation intact. Pulses equal bilaterally 2+. Neurological: A&O x 3. CN II-XII intact, There are no obvious motor or sensory deficits. Coordination appears grossly intact. Speech is normal. Skin: Skin is warm and dry and no rashes or lesions are noted. Psychiatric: Cooperative, appropriate mood & affect, normal judgment. Limitations: no limitations Course Vital Signs 05/05/18 05/05/18 12:54 13:19 Temperature 98.4 F Pulse Rate 85 89 Respiratory 18 16 Rate Blood Pressure 138/73 134/89 O2 Sat by Pulse 99 97 Oximetry Medical Decision Making - Medical Decision Making Patient's labs reviewed today and are unremarkable. Patient does have symptoms of dizziness lightheadedness. Patient did have a CT of the neck performed on April 16 which showed a hemodynamic significant stenosis of the proximal internal carotid artery on the right irregular plaques makes accurate assessment somewhat limited, consider correlation with a cathetered right angiographic or carotid Doppler duplex as read by radiologist Dr. Acuna. - Lab Data Result diagrams: 05/05/18 13:41 05/05/18 13:41 Lab Results 05/05/18 05/05/18 05/05/18 Range/Units 13:41 13:41 13:41 WBC 10.4 (3.8-10.6) k/uL RBC 4.69 (3.80-5.40) m/uL Hgb 13.6 (11.4-16.0) gm/dL Hct 43.2 (34.0-46.0) % MCV 92.1 (80.0-100.0) fL MCH 29.0 (25.0-35.0) pg MCHC 31.5 (31.0-37.0) g/dL RDW 13.1 (11.5-15.5) % Plt Count 326 (150-450) k/uL Neutrophils % 66 % Lymphocytes % 25 % Monocytes % 4 % Eosinophils % 3 % Basophils % 1 % Neutrophils # 6.9 (1.3-7.7) k/uL Lymphocytes # 2.6 (1.0-4.8) k/uL Monocytes # 0.4 (0-1.0) k/uL Eosinophils # 0.3 (0-0.7) k/uL Basophils # 0.1 (0-0.2) k/uL PT (9.0-12.0) sec INR (<1.2) APTT (22.0-30.0) sec Sodium 141 (137-145) mmol/L Potassium 4.2 (3.5-5.1) mmol/L Chloride 108 H (98-107) mmol/L Carbon Dioxide 24 (22-30) mmol/L Anion Gap 9 mmol/L BUN 16 (7-17) mg/dL Creatinine 1.12 H (0.52-1.04) mg/dL Est GFR (CKD-EPI)AfAm 63 (>60 ml/min/1.73 sqM) Est GFR (CKD-EPI)NonAf 54 (>60 ml/min/1.73 sqM) Glucose 90 (74-99) mg/dL Calcium 9.9 (8.4-10.2) mg/dL Total Bilirubin 0.4 (0.2-1.3) mg/dL AST 23 (14-36) U/L ALT 34 (9-52) U/L Alkaline Phosphatase 108 (38-126) U/L Total Creatine Kinase 56 (30-135) U/L CK-MB (CK-2) 0.3 (0.0-2.4) ng/mL CK-MB (CK-2) Rel Index 0.5 Troponin I <0.012 (0.000-0.034) ng/mL Total Protein 7.3 (6.3-8.2) g/dL Albumin 4.1 (3.5-5.0) g/dL Urine Color Urine Appearance (Clear) Urine pH (5.0-8.0) Ur Specific [place] (1.001-1.035) Urine Protein (Negative) Urine Glucose (UA) (Negative) Urine Ketones (Negative) Urine Blood (Negative) Urine Nitrite (Negative) Urine Bilirubin (Negative) Urine Urobilinogen (<2.0) mg/dL Ur Leukocyte Esterase (Negative) Urine RBC (0-5) /hpf Urine WBC (0-5) /hpf Ur Squamous Epith Cells (0-4) /hpf Calcium Oxalate Crystal (None) /hpf Urine Mucus (None) /hpf 05/05/18 05/05/18 Range/Units 13:41 14:44 WBC (3.8-10.6) k/uL RBC (3.80-5.40) m/uL Hgb (11.4-16.0) gm/dL Hct (34.0-46.0) % MCV (80.0-100.0) fL MCH (25.0-35.0) pg MCHC (31.0-37.0) g/dL RDW (11.5-15.5) % Plt Count (150-450) k/uL Neutrophils % % Lymphocytes % % Monocytes % % Eosinophils % % Basophils % % Neutrophils # (1.3-7.7) k/uL Lymphocytes # (1.0-4.8) k/uL Monocytes # (0-1.0) k/uL Eosinophils # (0-0.7) k/uL Basophils # (0-0.2) k/uL PT 10.0 (9.0-12.0) sec INR 0.9 (<1.2) APTT 23.7 (22.0-30.0) sec Sodium (137-145) mmol/L Potassium (3.5-5.1) mmol/L Chloride (98-107) mmol/L Carbon Dioxide (22-30) mmol/L Anion Gap mmol/L BUN (7-17) mg/dL Creatinine (0.52-1.04) mg/dL Est GFR (CKD-EPI)AfAm (>60 ml/min/1.73 sqM) Est GFR (CKD-EPI)NonAf (>60 ml/min/1.73 sqM) Glucose (74-99) mg/dL Calcium (8.4-10.2) mg/dL Total Bilirubin (0.2-1.3) mg/dL AST (14-36) U/L ALT (9-52) U/L Alkaline Phosphatase (38-126) U/L Total Creatine Kinase (30-135) U/L CK-MB (CK-2) (0.0-2.4) ng/mL CK-MB (CK-2) Rel Index Troponin I (0.000-0.034) ng/mL Total Protein (6.3-8.2) g/dL Albumin (3.5-5.0) g/dL Urine Color Yellow Urine Appearance Cloudy H (Clear) Urine pH 5.5 (5.0-8.0) Ur Specific [place] 1.010 (1.001-1.035) Urine Protein Negative (Negative) Urine Glucose (UA) Negative (Negative) Urine Ketones Negative (Negative) Urine Blood Negative (Negative) Urine Nitrite Negative (Negative) Urine Bilirubin Negative (Negative) Urine Urobilinogen <2.0 (<2.0) mg/dL Ur Leukocyte Esterase Small H (Negative) Urine RBC 4 (0-5) /hpf Urine WBC 6 H (0-5) /hpf Ur Squamous Epith Cells 9 H (0-4) /hpf Calcium Oxalate Crystal Occasional H (None) /hpf Urine Mucus Occasional H (None) /hpf Disposition Clinical Impression: Dizziness, Carotid artery occlusion syndrome Disposition: ADMITTED IP TO THIS HOSP Condition: Stable Is patient prescribed a controlled substance at d/c from ED?: No Referrals: Judah Ramirez MD [Primary Care Provider] - 1-2 days Time of Disposition: 15:52
[2018-05-05 14:37] LABS: Creatine Kinase 56 U/L (30-135)
[2018-05-05 14:51] LABS: Creatine Kinase MB 0.3 ng/mL (0.0-2.4); Troponin I <0.012 ng/mL (0.000-0.034)
[2018-05-05 15:24] LABS: Appearance,Urine Cloudy (Clear); Bilirubin,Urine Negative (Negative); Blood,Urine Negative (Negative); Calcium Oxalate Crystals,Urine Occasional /hpf; Color,Urine Yellow; Glucose,Urine (UA) Negative (Negative); Ketones,Urine Negative (Negative); Leukocyte Esterase,Urine Small (Negative); Mucus,Urine Occasional /hpf; Nitrite,Urine Negative (Negative); PH, Urine 5.5 (5.0-8.0); Protein,Urine Negative (Negative); RBC,Urine 4 /hpf (0-5); Squamous Epithelial Cell,Urine 9 /hpf (0-4); Urobilinogen,Urine <2.0 mg/dL (<2.0)
[2018-05-05] MEDS ORDERED: SODIUM CHLORIDE 0.9% 1,000 ML IV ONE (15:53)
[2018-05-05] MEDS ORDERED: ONDANSETRON 4 MG/2 ML VIAL IVP PRN (15:53)
[2018-05-05] MEDS ORDERED: ACETAMINOPHEN TAB 325 MG TAB PO PRN (15:53)
[2018-05-05] MEDS ORDERED: NALOXONE 0.4 MG/ML 1 ML VIAL IV PRN (15:53)
[2018-05-05] MEDS ORDERED: ACETAMINOPHEN TAB 325 MG TAB PO STA (15:58)
[2018-05-05] MEDS ORDERED: ASPIRIN-ACET-CAFF 250-250-65MG 1 EACH TAB PO PRN (16:37)
[2018-05-05] MEDS ORDERED: traMADol 50 MG TAB PO STA (19:12)
[2018-05-05] MEDS ORDERED: CALCIUM CARBONATE 500 MG CHEWABLE PO PRN (20:13)
[2018-05-05] MEDS: ATORVASTATIN 40 MG TAB PO SCH (21:19)
[2018-05-05] MEDS: METOPROLOL TARTRATE 25 MG TAB PO SCH (21:19)
[2018-05-05] MEDS: traMADol 50 MG TAB PO SCH (21:28)
[2018-05-06 00:32] VITALS: BMI 24.3
[2018-05-06] MEDS ORDERED: ALPRAZolam 0.25 MG TAB PO PRN (00:49)
[2018-05-06] MEDS ORDERED: TEMAZEPAM 15 MG CAP PO PRN (00:49)
[2018-05-06] MEDS ORDERED: HYDROcodone/APAP 5-325MG 1 EACH TAB PO PRN (00:49)
[2018-05-06] MEDS ORDERED: LEVOFLOXACIN 500MG-D5W PMX 500 MG in DEXTROSE/WATER 1 100ML.BAG IVPB SCH (01:00)
[2018-05-06] MEDS: traMADol 50 MG TAB PO SCH ×3 (06:42→21:03)
--- NOTE | 2018-05-06 07:36 | HP ---
HISTORY AND PHYSICAL DATE OF SERVICE: 05/05/2018 CHIEF COMPLAINT: Dizziness. HISTORY OF PRESENT ILLNESS: This 58-year-old woman with a past medical history of multiple medical problems including COPD, CVA, TIA, fibromyalgia, history of appendectomy, back surgery, history of DJD being followed by Dr. Ramirez in the outpatient setting was recently admitted to [facility]. The patient apparently had a carotid occlusion on the left side. Patient went to [facility] and had a left carotid endarterectomy. Currently the patient is complaining of dizziness, lightheadedness, weakness and CTA on the neck on April 16 showed some right-sided carotid stenosis and patient was admitted for further evaluation and treatment. There is no history of any fever or rigors. No history of headache, loss of consciousness, seizures at this time. Outpatient evaluation by Dr. Perez is pending at this time. PAST MEDICAL HISTORY: History of COPD, CVA, TIA, fibromyalgia, vascular disorder, appendectomy, back surgery. MEDICATIONS: The home medications are: 1. Ultram 100 mg p.o. t.i.d. 2. Verapamil ER 120 mg p.o. daily. 3. Bactrim DS 1 p.o. b.i.d. 4. Macrobid 100 mg p.o. b.i.d. 5. Lopressor 25 mg b.i.d. 6. Plavix 75 mg p.o. daily. 7. Lipitor 40 mg q.h.s. 8. Excedrin 2 tabs q.8 p.r.n. ALLERGIES: Allergies are AMOXICILLIN, NICKEL, PENICILLIN. FAMILY HISTORY: History of colon cancer in the family. SOCIAL HISTORY: Previous history of smoking. No history of alcohol intake. REVIEW OF SYSTEMS: ENT: No diminished hearing or diminished vision. CARDIOVASCULAR SYSTEM: No angina or palpitations. RESPIRATORY SYSTEM: As mentioned earlier. GI: As mentioned earlier. : No dysuria. NERVOUS SYSTEM: No numbness or weakness. ALLERGY/IMMUNOLOGY: No history of asthma. MUSCULOSKELETAL: As mentioned earlier. HEMATOLOGY/ONCOLOGY: No history of anemia. ENDOCRINE: No history of diabetes or hypothyroidism. CONSTITUTIONAL: As mentioned earlier. DERMATOLOGY: Negative. RHEUMATOLOGY: Negative. PSYCHIATRY: As mentioned earlier. PHYSICAL EXAMINATION: The patient is alert and oriented x3. Pulse is 57, blood pressure 122/62, respirations 16, temperature 97.8, pulse ox 97% on room air. HEENT: Conjunctivae normal. NECK: No jugular venous distention. CARDIOVASCULAR: S1, S2 muffled. RESPIRATORY: Breath sounds diminished at the bases. No rhonchi, no crackles. ABDOMEN: Soft, nontender. No mass palpable. LEGS: No edema, no swelling. NERVOUS SYSTEM: Higher functions as mentioned. Moves all 4 limbs. No focal motor deficits. LYMPHATICS: No lymphadenopathy of the neck, axillae or groin. SKIN: No ulcer, rash or bleeding. JOINTS: No active deforming arthropathy. LABS: CBC within normal limits. Creatinine is 1.12. UA noted. ASSESSMENT: 1. Generalized weakness and tiredness for evaluation. 2. Right carotid stenosis. 3. Increased creatinine with possibly chronic kidney disease stage 4. 4. History of left carotid endarterectomy. 5. History of chronic obstructive pulmonary disease. 6. History of fibromyalgia. 7. History of transient ischemic attacks. 8. History of RSD. 9. History of back surgery. 10.History of degenerative joint disease. RECOMMENDATIONS AND DISCUSSION: This 58-year-old woman who presented with multiple complex medical issues, will monitor the patient closely. Continue the current medications. Continue symptomatic treatment. Continue the antiplatelet agents. I would recommend a Neurology and as well as Vascular Surgery consultations. Otherwise guarded prognosis because of multiple complex medical issues. Further recommendations to follow. A copy of dictation forwarded to Dr. Ramirez who is the primary physician. MMFADIL / CARMENCITAN: [id number] /
[2018-05-06] MEDS: VERAPAMIL SR 120 MG TABLET.ER PO SCH (08:43)
[2018-05-06] MEDS: METOPROLOL TARTRATE 25 MG TAB PO SCH ×3 (08:44→21:04)
[2018-05-06] MEDS: HEPARIN SODIUM,PORCINE 5,000 UNIT/ML 1 ML VIAL SQ SCH ×2 (08:44→21:03)
[2018-05-06] MEDS: PANTOPRAZOLE 40 MG TABLET PO SCH (08:44)
[2018-05-06] MEDS: CLOPIDOGREL 75 MG TAB PO SCH (08:44)
[2018-05-06] MEDS ORDERED: FAMOTIDINE 20 MG/2 ML VIAL IV SCH (09:00)
[2018-05-06 10:16] LABS: Basophils # (A) 0.1 k/uL (0-0.2); Basophils % (A) 1 %; Eosinophils # (A) 0.4 k/uL (0-0.7); Eosinophils % (A) 4 %; HCT 42.1 % (34.0-46.0); HGB 13.6 gm/dL (11.4-16.0); Lymphocytes # (A) 2.1 k/uL (1.0-4.8); Lymphocytes % (A) 20 %; MCH 30.5 pg (25.0-35.0); MCHC 32.3 g/dL (31.0-37.0); MCV 94.2 fL (80.0-100.0); Mean Platelet Volume 7.6; Monocytes # (A) 0.5 k/uL (0-1.0); Monocytes % (A) 4 %; Neutrophils # (A) 7.4 k/uL (1.3-7.7); Neutrophils % (A) 70 %; Platelet Count 302 k/uL (150-450); RBC 4.47 m/uL (3.80-5.40); RDW 13.1 % (11.5-15.5); WBC 10.6 k/uL (3.8-10.6)
[2018-05-06 10:20] LABS: Albumin 4.1 g/dL (3.5-5.0); Calcium 9.9 mg/dL (8.4-10.2); Potassium 4.7 mmol/L (3.5-5.1); Total Bilirubin 0.4 mg/dL (0.2-1.3); Total Protein 7.1 g/dL (6.3-8.2)
--- NOTE | 2018-05-06 15:56 | P.GSCN ---
History of Present Illness Consult date: 05/06/18 Reason for Consult: Carotid stenosis Requesting physician: Yesy Soto History of present illness: 58-year-old female with past medical history of CVA, TIA and left carotid endarterectomy presented to the emergency department with complaints of dizziness, lightheadedness and weakness. She recently in December had a left carotid endarterectomy secondary to stroke at [facility]. She states her dizziness and lightheadedness onset today which she states almost caused her to pass out. She recently had a CTA on April 16 that showed right carotid artery stenosis approximately 70%. She denies any lateralizing symptoms such as unilateral weakness, vision changes or speech issues. She denies any fevers, chills, chest pain or shortness of breath. She has been seen by Dr. Ramirez as an outpatient and had A scheduled appointment with myself later this month. She denies any claudication or rest pain. Review of Systems - Constitutional Denies anorexia, Denies chills, Denies chronic headaches, Denies chronic pain, Denies fatigue, Denies fever - EENT Eyes: denies blurred vision, denies decreased vision, denies loss of vision - Cardiovascular Reports decreased exercise tolerance, Reports lightheadedness, Denies chest pain , Denies claudication, Denies shortness of breath, Denies syncope - Respiratory Denies cough, Denies hemoptysis, Denies home oxygen, Denies pain on inspiration - Gastrointestinal Denies abdominal pain, Denies BRBPR - Musculoskeletal Denies arm numbness/tingling, Denies gait dysfunction, Denies leg numbness/ tingling - Neurological Reports weakness, Denies aphasia, Denies ataxia, Denies confusion, Denies double vision, Denies gait dysfunction, Denies loss of vision, Denies numbness, Denies paralysis, Denies paresthesias - Endocrine Reports cold intolerance Past Medical History Past Medical History: COPD, CVA/TIA, Fibromyalgia, Vascular Disorder Additional Past Medical History / Comment(s): 11/04/17 CVA with headache, syncope and slurred speech which resolved, elevated triglycerides, L caratid 70% stenosed and had endartectomy 12/29/17 at [facility], RSD L hand, benign colon polyps. History of Any Multi-Drug Resistant Organisms: None Reported Past Surgical History: Appendectomy, Back Surgery, Breast Surgery, Cholecystectomy, Tubal Ligation Additional Past Surgical History / Comment(s): 12/29/17 L caratid endartectomy at [facility], LEFT BREAST BX/LUMPECTOMY BENIGN, COLONOSCOPIES WITH BENIGN POLYPECTOMIES, NERVE BLOCK TO NECK X3, LOW BACK SURGERY, NEURO STIMULATOR IN LOW BACK NOT CONNECTED TO WIRES. Past Anesthesia/Blood Transfusion Reactions: No Reported Reaction Past Psychological History: No Psychological Hx Reported Additional Psychological History / Comment(s): Pt lives with ex-. She uses no assistive device but has a cane and a walker if she ever needs to. She drives. Smoking Status: Former smoker Past Alcohol Use History: None Reported Additional Past Alcohol Use History / Comment(s): patient stated smoking a week ago and then quit. Past Drug Use History: None Reported - Past Family History Father Family Medical History: Cancer Additional Family Medical History / Comment(s): COLON CANCER. Father is . Mother Family Medical History: Cancer Additional Family Medical History / Comment(s): Mother is . She had cancer but pt does not recall what kind. Medications and Allergies Home Medications Medication Instructions Recorded Confirmed Type traMADol HCl [Ultram] 100 mg PO TID 01/22/16 05/05/18 History Atorvastatin [Lipitor] 40 mg PO HS #30 tab 11/09/17 05/05/18 Rx Clopidogrel Bisulfate [Plavix] 75 mg PO DAILY #30 tab 01/28/18 05/05/18 Rx Aspirin/Acetaminophen/Caffeine 2 tab PO Q8HR PRN 05/05/18 05/05/18 History [Excedrin Migraine Caplet] Metoprolol Tartrate [Lopressor] 25 mg PO BID 05/05/18 05/05/18 History Nitrofurantoin Monohyd/M-Cryst 100 mg PO Q12HR 05/05/18 05/05/18 History [Macrobid] Sulfamethox-Tmp 800-160Mg [Bactrim 1 tab PO Q12HR 05/05/18 05/05/18 History DS 800-160 mg] Verapamil HCl [Verapamil ER] 120 mg PO DAILY 05/05/18 05/05/18 History Allergies Allergy/AdvReac Type Severity Reaction Status Date / Time amoxicillin Allergy Dyspnea Verified 05/05/18 14:24 nickel AdvReac Rash/Hives Verified 05/05/18 14:24 Penicillins AdvReac Rash/Hives/ Verified 05/05/18 14:24 SWELLING Surgical - Exam Vital Signs Temp Pulse Resp BP Pulse Ox 98.4 F 85 18 138/73 99 05/05/18 12:54 05/05/18 12:54 05/05/18 12:54 05/05/18 12:54 05/05/18 12:54 - General well developed, well nourished, no distress - Eyes PERRL, normal ocular movement - ENT normal pinna, normal nares - Neck no masses, no bruits, trachea midline - Respiratory normal expansion, normal respiratory effort - Cardiovascular Rhythm: regular - Abdomen Abdomen: soft, non tender, no distended - Integumentary no rash, no growths - Neurologic normal coordination, normal sensation - Psychiatric oriented to time, oriented to person, oriented to place, speech is normal No focal deficits. Palpable DP pulse on the left and palpable DP and PT pulses on the right. No cyanosis bilateral lower extremities or feet. His hair present bilateral anterior shins. Palpable radial pulses bilaterally. Results - Labs 05/06/18 09:34 05/06/18 09:34 Microbiology - Last 24 Hours (Table) 05/05/18 14:44 Urine Culture - Preliminary Urine,Voided Diabetes panel 05/06/18 Range/Units 09:34 Sodium 141 (137-145) mmol/L Potassium 4.7 (3.5-5.1) mmol/L Chloride 107 (98-107) mmol/L Carbon Dioxide 26 (22-30) mmol/L BUN 13 (7-17) mg/dL Creatinine 0.92 (0.52-1.04) mg/dL Glucose 95 (74-99) mg/dL Calcium 9.9 (8.4-10.2) mg/dL AST 21 (14-36) U/L ALT 33 (9-52) U/L Alkaline Phosphatase 94 (38-126) U/L Total Protein 7.1 (6.3-8.2) g/dL Albumin 4.1 (3.5-5.0) g/dL Calcium panel 05/06/18 Range/Units 09:34 Calcium 9.9 (8.4-10.2) mg/dL Albumin 4.1 (3.5-5.0) g/dL Pituitary panel 05/06/18 Range/Units 09:34 Sodium 141 (137-145) mmol/L Potassium 4.7 (3.5-5.1) mmol/L Chloride 107 (98-107) mmol/L Carbon Dioxide 26 (22-30) mmol/L BUN 13 (7-17) mg/dL Creatinine 0.92 (0.52-1.04) mg/dL Glucose 95 (74-99) mg/dL Calcium 9.9 (8.4-10.2) mg/dL Adrenal panel 05/06/18 Range/Units 09:34 Sodium 141 (137-145) mmol/L Potassium 4.7 (3.5-5.1) mmol/L Chloride 107 (98-107) mmol/L Carbon Dioxide 26 (22-30) mmol/L BUN 13 (7-17) mg/dL Creatinine 0.92 (0.52-1.04) mg/dL Glucose 95 (74-99) mg/dL Calcium 9.9 (8.4-10.2) mg/dL Total Bilirubin 0.4 (0.2-1.3) mg/dL AST 21 (14-36) U/L ALT 33 (9-52) U/L Alkaline Phosphatase 94 (38-126) U/L Total Protein 7.1 (6.3-8.2) g/dL Albumin 4.1 (3.5-5.0) g/dL - Imaging Additional studies: CTA of the neck was reviewed. Assessment and Plan (1) Carotid stenosis, bilateral Current Visit: Yes Status: Acute Priority: High Code(s): I65.23 - OCCLUSION AND STENOSIS OF BILATERAL CAROTID ARTERIES SNOMED Code(s): 50551336 (2) Dizziness Current Visit: Yes Status: Acute Priority: Medium Code(s): R42 - DIZZINESS AND GIDDINESS SNOMED Code(s): 986185902 (3) Tobacco use Current Visit: No Status: Chronic Priority: Low Code(s): Z72.0 - TOBACCO USE SNOMED Code(s): 178791098 Plan: Discussed CT angiogram with the patient in full detail. Upon review of the angiogram there is some significant stenosis noted in the right ICA proximally 70%. We will obtain a carotid duplex to further delineate disease in the right internal carotid artery. If this study demonstrates significant stenosis greater than 70-80% we will then discuss potential for surgical intervention as an outpatient. Patient was informed that her dizziness is unlikely due to her focal right carotid stenosis. Continue Plavix and statin. Thank you for the consultation. If there is any questions please feel free to call me on my cell [phone].
--- NOTE | 2018-05-06 18:40 | US ---
EXAMINATION TYPE: US carotid duplex BILAT DATE OF EXAM: 05/06/2018 COMPARISON: CT angio x 2, US CLINICAL HISTORY: Carotid stenosis, history of left CEA; Right carotid stenosis by recent CT angio. EXAM MEASUREMENTS: RIGHT: Peak Systolic Velocity (PSV) cm/sec ----- Right CCA: 65.1 ----- Right ICA: 580.9 prox ----- Right ECA: 126.7 ICA/CCA ratio: 8.9 RIGHT: End Diastole cm/sec ----- Right CCA: 21.5 ----- Right ICA: 260.3 ----- Right ECA: 26.2 LEFT: Peak Systolic Velocity (PSV) cm/sec ----- Left CCA: 120.7 ----- Left ICA: 163.6 prox ----- Left ECA: 212.1 mid ICA/CCA ratio: 1.4 LEFT: End Diastole cm/sec ----- Left CCA: 40.5 ----- Left ICA: 47.3 ----- Left ECA: 42.5 VERTEBRALS (direction of flow): Right Vertebral: Antegrade Left Vertebral: Antegrade Rhythm: Normal Severe stenosis is seen in right ICA proximally with abnormally elevated PSV and EDV documented at si gnificant wall plaque. Abnormally elevated PSV is also seen mid Right ECA, Left ICA proximally, and in Left ECA. IMPRESSION: This patient apparently has had left endarterectomy. The peak systolic velocity in the l eft internal carotid artery is corresponding to 50-70% stenosis in the left internal carotid artery. Markedly elevated velocity right internal carotid artery suggests subtotal occlusion. More than 70% stenosis. This is significantly worse than last ultrasound exam of 11/07/2017. There is antegrade flow in the vertebral arteries. Criteria for Assigning % of Stenosis / Diameter reduction (Estimation based on the indirect measurements of the internal carotid artery velocities (ICA PSV). 1. Normal (no stenosis)=ICA PSV < 125 cm/s: ratio < 2.0: ICA EDV<40 cm/s. 2. Less than 50% stenosis=ICA PSV < 125 cm/s: ratio < 2.0: ICA EDV<40 cm/s. 3. 50 to 69% stenosis=ICA PSV of 125 to 230 cm/s: ration 2.0 ? 4.0: ICA EDV 40-100 cm/s. 4. Greater than 70% stenosis to near occlusion= ICA PSV > 230 cm/s: ratio > 4.0: ICA EDV > 100 cm/s. 5. Near occlusion= ICA PSV velocities may be low or undetectable: variable ratio and ICA EDV. 6. Total occlusion=unable to detect flow.
--- NOTE | 2018-05-06 19:03 | P.CNNES ---
History of Present Illness Consult date: 05/06/18 History of Present Illness: The patient is a 58-year-old white female with complaints of lightheadedness for the last 2 or 3 weeks. She states that lightheadedness is a presyncopal feeling without any vertigo. This can occur while sitting standing or laying down. It can occur spontaneously. She states she stopped driving to a 3 weeks ago because of this feeling. The patient has a history of recent carotid endarterectomy which was performed at [facility] in December. She recently had a CT angiogram in April which showed right carotid artery stenosis of 70%. She denies any focal weakness numbness visual complaint or speech disturbance. She does have a history of stroke in the summer of 2017 which left her with some mild dysarthria. She is currently on Plavix and aspirin. Review of Systems Constitutional: Denies chills, Denies fever Eyes: denies blurred vision, denies pain Ears, nose, mouth and throat: Denies headache, Denies sore throat Cardiovascular: Denies chest pain, Denies shortness of breath Respiratory: Denies cough Gastrointestinal: Denies abdominal pain, Denies diarrhea, Denies nausea, Denies vomiting Genitourinary: Denies dysuria, Denies hematuria Musculoskeletal: Denies myalgias Neurological: Denies numbness, Denies weakness Psychiatric: Denies anxiety, Denies depression Past Medical History Past Medical History: COPD, CVA/TIA, Fibromyalgia, Vascular Disorder Additional Past Medical History / Comment(s): 11/04/17 CVA with headache, syncope and slurred speech which resolved, elevated triglycerides, L caratid 70% stenosed and had endartectomy 12/29/17 at [facility], RSD L hand, benign colon polyps. History of Any Multi-Drug Resistant Organisms: None Reported Past Surgical History: Appendectomy, Back Surgery, Breast Surgery, Cholecystectomy, Tubal Ligation Additional Past Surgical History / Comment(s): 12/29/17 L caratid endartectomy at [facility], LEFT BREAST BX/LUMPECTOMY BENIGN, COLONOSCOPIES WITH BENIGN POLYPECTOMIES, NERVE BLOCK TO NECK X3, LOW BACK SURGERY, NEURO STIMULATOR IN LOW BACK NOT CONNECTED TO WIRES. Past Anesthesia/Blood Transfusion Reactions: No Reported Reaction Past Psychological History: No Psychological Hx Reported Additional Psychological History / Comment(s): Pt lives with ex-. She uses no assistive device but has a cane and a walker if she ever needs to. She drives. Smoking Status: Former smoker Past Alcohol Use History: None Reported Additional Past Alcohol Use History / Comment(s): patient stated smoking a week ago and then quit. Past Drug Use History: None Reported - Past Family History Father Family Medical History: Cancer Additional Family Medical History / Comment(s): COLON CANCER. Father is . Mother Family Medical History: Cancer Additional Family Medical History / Comment(s): Mother is . She had cancer but pt does not recall what kind. Medications and Allergies Home Medications Medication Instructions Recorded Confirmed Type traMADol HCl [Ultram] 100 mg PO TID 01/22/16 05/05/18 History Atorvastatin [Lipitor] 40 mg PO HS #30 tab 11/09/17 05/05/18 Rx Clopidogrel Bisulfate [Plavix] 75 mg PO DAILY #30 tab 01/28/18 05/05/18 Rx Aspirin/Acetaminophen/Caffeine 2 tab PO Q8HR PRN 05/05/18 05/05/18 History [Excedrin Migraine Caplet] Metoprolol Tartrate [Lopressor] 25 mg PO BID 05/05/18 05/05/18 History Nitrofurantoin Monohyd/M-Cryst 100 mg PO Q12HR 05/05/18 05/05/18 History [Macrobid] Sulfamethox-Tmp 800-160Mg [Bactrim 1 tab PO Q12HR 05/05/18 05/05/18 History DS 800-160 mg] Verapamil HCl [Verapamil ER] 120 mg PO DAILY 05/05/18 05/05/18 History Allergies Allergy/AdvReac Type Severity Reaction Status Date / Time amoxicillin Allergy Dyspnea Verified 05/05/18 14:24 nickel AdvReac Rash/Hives Verified 05/05/18 14:24 Penicillins AdvReac Rash/Hives/ Verified 05/05/18 14:24 SWELLING Physical Examination - Vital Signs Vital Signs: Vital Signs Temp Pulse Pulse Pulse Pulse Pulse Resp 05/06/18 16:00 65 72 63 17 05/06/18 15:58 97.9 F 65 72 63 17 05/06/18 12:00 97.3 F L 69 17 05/06/18 07:48 98.0 F 63 20 05/06/18 06:34 98.2 F 72 21 05/06/18 04:00 72 18 05/06/18 00:33 57 L 16 05/05/18 19:49 97.8 F 80 16 BP BP BP BP BP Pulse Ox 05/06/18 16:00 05/06/18 15:58 108/67 97/63 116/65 98 05/06/18 12:00 110/65 98 05/06/18 07:48 100/61 98 05/06/18 06:34 120/66 96 05/06/18 04:00 122/62 97 05/06/18 00:33 122/62 97 05/05/18 19:49 126/77 95 Intake and Output 05/06/18 05/06/18 05/06/18 06:59 14:59 22:59 Intake Total 118 100 Output Total 0 Balance 118 100 Intake: Oral 118 100 Output: Urine 0 Other: Weight 60.328 kg 60.328 kg - Constitutional General appearance: average body habitus, cooperative - EENT EENT: PERRL - Respiratory Respiratory: lungs clear - Cardiovascular Cardiovascular: regular rate, normal S1 - Neurologic Neurologic examination: Next Mental status: She was awake alert and oriented. There was no aphasia or dysarthria. Cranial nerve examination: Cranial nerves II-12 grossly intact next Motor examination 5 out of 5 throughout next Sensory examination: Intact to light touch next [place]: Finger to nose [id number] intact next Deep tendon reflexes: Symmetric X Gait: Not tested Results - Laboratory Findings CBC and BMP: 05/06/18 09:34 05/06/18 09:34 Abnormal Lab Findings: Abnormal Labs 05/05/18 05/05/18 13:41 14:44 Chloride 108 H Creatinine 1.12 H Urine Appearance Cloudy H Ur Leukocyte Esterase Small H Urine WBC 6 H Ur Squamous Epith Cells 9 H Calcium Oxalate Crystal Occasional H Urine Mucus Occasional H Assessment and Plan (1) Carotid artery occlusion syndrome Current Visit: Yes Status: Acute SNOMED Code(s): 22150659 (2) Dizziness Current Visit: Yes Status: Acute Priority: Medium SNOMED Code(s): 241999331 Plan: The patient is a 58-year-old woman with multiple medical problems including history of stroke back problems COPD and carotids disease who presents to the hospital with lightheadedness for the past several weeks. She is admitted to the hospital with right carotid stenosis. Vascular surgery is following. Recommend continue Plavix and aspirin. The patient had a CT brain 2 weeks ago which showed bilateral infarcts. Recommend follow-up CT brain
[2018-05-06] MEDS ORDERED: INSULIN DETEMIR 100 UNIT/ML 10 ML VIAL SQ SCH (21:00)
[2018-05-06] MEDS: ATORVASTATIN 40 MG TAB PO SCH (21:03)
--- NOTE | 2018-05-06 21:17 | CT ---
EXAMINATION TYPE: CT brain wo con DATE OF EXAM: 05/06/2018 COMPARISON: 04/16/2018 HISTORY: DIZZINESS CT DLP: 1046.4 mGycm Automated exposure control for dose reduction was used. FINDINGS: There is a 3 x 2 cm area of hypodensity in the right posterior frontal lobe related to old cortical i nfarct. There is no mass effect nor midline shift. There is no sign of intracranial hemorrhage. There is some cortical hypodensity in the left posterior temporal lobe consistent with multiple small infa rcts. Ventricles have normal size. Calvarium is intact. IMPRESSION: OLD BILATERAL CORTICAL INFARCTS. NO ACUTE INTRACRANIAL ABNORMALITY. NO CHANGE. THERE IS CLEARING OF S MALL RIGHT MAXILLARY SINUSITIS COMPARED TO OLD EXAM.
[2018-05-07] MEDS ORDERED: LEVOFLOXACIN 500 MG TAB PO SCH (05:00)
[2018-05-07] MEDS: PANTOPRAZOLE 40 MG TABLET PO SCH (06:07)
[2018-05-07 07:11] LABS: Calcium 9.9 mg/dL (8.4-10.2); Potassium 4.2 mmol/L (3.5-5.1)
[2018-05-07 08:14] VITALS: RESP 18
[2018-05-07] MEDS: METOPROLOL TARTRATE 25 MG TAB PO SCH (08:18)
[2018-05-07] MEDS: traMADol 50 MG TAB PO SCH ×2 (08:18→15:33)
[2018-05-07] MEDS: CLOPIDOGREL 75 MG TAB PO SCH (08:18)
[2018-05-07] MEDS: HEPARIN SODIUM,PORCINE 5,000 UNIT/ML 1 ML VIAL SQ SCH (08:19)
[2018-05-07] MEDS: VERAPAMIL SR 120 MG TABLET.ER PO SCH (08:19)
[2018-05-07 15:39] VITALS: BP 101/71; PULSE 78; TEMP 98.1
[2018-05-07] MEDS ORDERED: METOPROLOL TARTRATE 12.5 MG TAB PO SCH (21:00)
--- NOTE | 2018-05-07 23:14 | DS ---
DISCHARGE SUMMARY DATE OF SERVICE: 05/07/2017. FINAL DIAGNOSES: 1. Dizziness, weakness, possible acute transient ischemic attack. 2. 70% stenosis of the right carotid artery and 50% to 70% stenosis of left internal carotid artery. 3. Increased creatinine with possible chronic kidney stage 4. 4. History of carotid endarterectomy. 5. History of chronic obstructive pulmonary disease. 6. History of fibromyalgia. 7. History of transient ischemic attack. 8. History RSD. 9. History of back surgery. 10.History of degenerative joint disease. 11.Urinary tract infection. DISCHARGE CONDITION: The patient will be discharged in stable condition with guarded prognosis. HISTORY OF PRESENT ILLNESS: This 58-year-old woman with a past medical history of multiple medical problems, being followed by Dr. Ramirez in the outpatient setting, the patient recently had left carotid surgery at [facility]. The patient was admitted with multiple symptomatology as listed. The patient is seen by Neurology and Dr. Perez. Dr. Perez recommended outpatient evaluation. The patient was evaluated closely and the patient improved. The patient will be discharged in stable condition with guarded prognosis. DISCHARGE INSTRUCTIONS: Cardiac diet. FOLLOWUP: 1. Follow up with Dr. Ramirez in 2 to 3 days. 2. Follow up with Dr. Perez as recommended. MEDICATIONS: 1. Ultram 50 mg p.o. daily. 2. Verapamil 120 mg b.i.d. 3. Aspirin 81 mg daily. 4. Lipitor 40 mg at bedtime. 5. Plavix 75 mg p.o. daily. 6. Levaquin 250 mg p.o. daily for 5 days. 7. Lopressor 12.5 mg daily. 8. Protonix 40 mg p.o. daily. Once again, the patient will be discharged in stable condition with guarded prognosis. MMODL / IJN: [id number] /
--- NOTE | 2018-05-07 23:18 | P.PN ---
Subjective Progress Note Date: 05/06/18 Progress note being dictated for Dr. Soto. Interval history: Is a 58-year-old female admitted with generalized weakness, tiredness, right carotid stenosis, acute on chronic renal failure and multiple other medical issues. Recent CTA in April reporting right carotid artery stenosis 70%. Maintained on Plavix and aspirin. Complains of occasional lightheadedness.Evaluated by both neurology and vascular surgery with recommendations noted.. Creatinine 1.12. Objective - Vital Signs Vital signs: Vital Signs Temp 97.9 F 05/06/18 15:58 Pulse 70 05/06/18 20:00 Resp 16 05/06/18 20:00 BP 90/57 05/06/18 20:00 Pulse Ox 97 05/06/18 20:00 Intake & Output 05/06/18 05/06/18 05/07/18 06:59 18:59 06:59 Intake Total 218 Output Total 0 Balance 218 Weight 60.328 kg 60.328 kg Intake: Oral 218 Output: Urine 0 Other: # Voids 5 - Exam PHYSICAL EXAM: VITAL SIGNS: As above GENERAL: Sitting up in chair, no acute distress HEENT: Conjunctivae normal. eyes normal. Oral mucosa moist NECK: No JVD. No thyroid enlargement. No LNs CARDIOVASCULAR: S1, S2 muffled. No murmur RESPIRATION: Breath sounds diminished in the bases. No rhonchi or crackles. No bronchial breathing. ABDOMEN: Soft, nontender . No guarding. no masses palpable. Bowel sounds heard. LEGS: No edema. no swelling PSYCHIATRY: Alert and oriented -3, mood and affect normal. NERVOUS SYSTEM: Cranial N 2-12 grossly normal. Moves all 4 limbs. Diffuse weakness No focal deficits. Joints: No active swelling. No inflammation. Lymphatic system. No LN neck axilla or groin. - Labs CBC & Chem 7: 05/06/18 09:34 05/07/18 06:20 Labs: Microbiology - Last 24 Hours (Table) 05/05/18 14:44 Urine Culture - Preliminary Urine,Voided Assessment and Plan Assessment: -Generalized weakness and tiredness for evaluation -Right carotid stenosis -Acute on chronic kidney disease stage IV -History of left carotid endarterectomy -COPD -Fibromyalgia Plan continue on current medication regime ,monitoring and symptomatic treatment. Neurology recommends both aspirin and Plavix as well as follow-up Brain CT. close monitoring of renal function with repeat labs ordered for a.m. Orthostatic vitals every shift ordered. Follow closely with both neurology and vascular surgery. The impression and plan of care has been dictated as directed. : I performed a history and examination of this patient, discussed the same with the dictator. I agree with the dictator's note ,documented as a scribe. Any additional findings or plans will be noted.
[2018-05-08] MEDS ORDERED: LEVOFLOXACIN 250 MG TAB PO SCH (06:00)
== END 2018-05-07 18:15 | disposition home or self-care (01) ==
LOC: EC 12:29 → INTOOBSV 16:27 → 3SCARD 16:27
PROVIDERS: ADMIT Internal Medicine; ATTEND Internal Medicine
DX: R42 Dizziness and giddiness (principal); I65.23 Occlusion and stenosis of bilateral carotid arteries; N39.0 Urinary tract infection, site not specified; E78.1 Pure hyperglyceridemia; J44.9 Chronic obstructive pulmonary disease, unspecified; M19.90 Unspecified osteoarthritis, unspecified site; M79.7 Fibromyalgia; N17.9 Acute kidney failure, unspecified; N18.4 Chronic kidney disease, stage 4 (severe); Z79.02 Long term (current) use of antithrombotics/antiplatelets; Z79.82 Long term (current) use of aspirin; Z79.899 Other long term (current) drug therapy; Z80.0 Family history of malignant neoplasm of digestive organs; Z86.010 Personal history of colon polyps; Z86.73 Personal history of transient ischemic attack (TIA), and cerebral infarction without residual deficits; Z90.49 Acquired absence of other specified parts of digestive tract; Z87.891 Personal history of nicotine dependence
CPT/HCPCS: 96372 ×3; 96361 ×2; 96365; 96375; 99285; 36415; 93005; 80053 ×2; 80048; 82150 ×2; 82550; 82553; 84484; 85025 ×2; 85610; 85730; 81001; 87040; 87086; 93880; 70450; G0378 ×4; J1644 ×2; J1956

== ENCOUNTER → 2018-05-14 | Outpatient (CLI) | payer MEDICARE, OTHER ==
[2018-05-14 12:10] LABS: HCT 41.5 % (34.0-46.0); HGB 13.6 gm/dL (11.4-16.0); MCH 30.6 pg (25.0-35.0); MCHC 32.8 g/dL (31.0-37.0); MCV 93.1 fL (80.0-100.0); Mean Platelet Volume 7.2; Platelet Count 304 k/uL (150-450); RBC 4.45 m/uL (3.80-5.40); RDW 13.1 % (11.5-15.5)
[2018-05-14 12:23] LABS: Potassium 4.5 mmol/L (3.5-5.1)
[2018-05-14 12:27] LABS: Partial Thromboplastin Time 22.9 sec (22.0-30.0); Prothrombin Time 10.4 sec (9.0-12.0)
[2018-05-14 12:55] LABS: Appearance,Urine Cloudy (Clear); Bilirubin,Urine Negative (Negative); Blood,Urine Trace (Negative); Calcium Oxalate Crystals,Urine Occasional /hpf; Color,Urine Yellow; Glucose,Urine (UA) Negative (Negative); Ketones,Urine Negative (Negative); Leukocyte Esterase,Urine Moderate (Negative); Mucus,Urine Many /hpf; Nitrite,Urine Negative (Negative); PH, Urine 5.5 (5.0-8.0); Protein,Urine 1+ (Negative); RBC,Urine 4 /hpf (0-5); Specific Gravity,Urine 1.026 (1.001-1.035); Squamous Epithelial Cell,Urine 16 /hpf (0-4); WBC,Urine 11 /hpf (0-5)
== END | disposition home or self-care (01) ==
LOC: LABPAT 11:23
PROVIDERS: ATTEND Surgery
DX: Z01.812 Encounter for preprocedural laboratory examination (principal); I65.21 Occlusion and stenosis of right carotid artery; Z79.01 Long term (current) use of anticoagulants
CPT/HCPCS: 36415; 80051; 81001; 82565; 84520; 85027; 85610; 85730; 86850; 86900; 86901

== ENCOUNTER 2018-05-21 06:36 | Inpatient (IN) | payer MEDICARE, OTHER ==
[2018-05-19 09:01] VITALS: BMI 24.5
[~2018-05-21 06:36] MED LIST: CLINDAMYCIN 900 MG in DEXTROSE 5% IN WATER 50 ML IVPB ONE; DEXAMETHASONE SOD PHOSPHATE 10 MG/ML 1 ML VIAL IV ONE; HYDROmorphone 0.5 MG/0.5 ML SYRINGE IVP PRN; LIDOCAINE 1% 20 ML VIAL (10MG/ML) FOR IV START INTRADERMA PRN; ONDANSETRON 4 MG/2 ML VIAL IVP ONE; SCOPOLAMINE 1.5MG/72HR PATCH TRANSDERM ONE
[2018-05-21] MEDS: LACTATED RINGERS 1,000 ML IV SCH ×3 (07:15→23:51)
[2018-05-21] MEDS ORDERED: NITROGLYCERIN-D5W PMX 50 MG in DEXTROSE/WATER 1 250ML.BAG IV SCH (08:00)
[2018-05-21] MEDS ORDERED: PHENYLEPHRINE 40 MG in SODIUM CHLORIDE 0.9% 250 ML IV SCH (08:15)
[2018-05-21] MEDS ORDERED: ROCURONIUM BROMIDE 10 MG/ML 10 ML VIAL IV ONE (09:00)
[2018-05-21] MEDS ORDERED: MIDAZOLAM 2 MG/2 ML VIAL ONE (09:00)
[2018-05-21] MEDS ORDERED: NEOSTIGMINE 1 MG/ML 10 ML VIAL ONE (09:00)
[2018-05-21] MEDS ORDERED: LABETALOL 5 MG/ML VIAL MDV ONE (09:00)
[2018-05-21] MEDS ORDERED: fentaNYL (PF) 50 MCG/ML 2 ML AMP ONE (09:00)
[2018-05-21] MEDS ORDERED: PHENYLEPHRINE-0.9% NACL SYG 1 MG/10 ML SYRINGE ONE (09:00)
[2018-05-21] MEDS ORDERED: LIDOCAINE 1% INJ 10MG/ML (20 ML MDV) ONE (09:00)
[2018-05-21] MEDS ORDERED: PROPOFOL 10 MG/ML 20 ML VIAL IV ONE (09:00)
[2018-05-21] MEDS ORDERED: GLYCOPYRROLATE 0.2 MG/ML 2 ML VIAL ONE (09:00)
[2018-05-21] MEDS ORDERED: HEPARIN SODIUM,PORCINE 5,000 UNIT/ML 1 ML VIAL ONE (09:00)
[2018-05-21] MEDS ORDERED: LIDOCAINE 1% INJ 10MG/ML (20 ML MDV) IM ONE ×2 (10:01→11:11)
[2018-05-21] MEDS ORDERED: GELATIN SPONGE,ABSORB (LARGE) 1 EACH SPONGE MISCELLANE ONE (10:05)
[2018-05-21] MEDS ORDERED: THROMBIN (BOVINE) 5,000 UNIT VIAL MISCELLANE ONE ×2 (10:05)
[2018-05-21] MEDS ORDERED: LACTATED RINGERS 1,000 ML IV ONE ×2 (11:09)
[2018-05-21] MEDS ORDERED: BENZOCAINE/MENTHOL LOZENG 1 EACH LOZENGE MUCOUS MEM PRN (11:28)
[2018-05-21] MEDS ORDERED: TRIMETHOBENZAMIDE 100 MG/ML 2 ML VIAL IM PRN (11:28)
[2018-05-21] MEDS ORDERED: ACETAMINOPHEN TAB 325 MG TAB PO PRN (11:28)
[2018-05-21] MEDS ORDERED: HYDROcodone/APAP 5-325MG 1 EACH TAB PO PRN (11:28)
[2018-05-21] MEDS ORDERED: MORPHINE SULFATE 4 MG/ML SYRINGE IVP PRN (11:28)
[2018-05-21] MEDS ORDERED: MAG HYDROX/AL HYDROX/SIMETH 30 ML CUP PO PRN (11:28)
--- NOTE | 2018-05-21 11:28 | P.OP ---
Date of Procedure: 05/21/18 Preoperative Diagnosis: Asymptomatic severe right carotid artery stenosis Postoperative Diagnosis: same Procedure(s) Performed: Right carotid endarterectomy with patch angioplasty Implants: bovine pericardial patch Anesthesia: DERICK Surgeon: Aki Perez Estimated Blood Loss (ml): 50 IV fluids (ml): 700 Urine output (ml): 160 Pathology: other (carotid plaque) Condition: stable Disposition: PACU Indications for Procedure: 58 year old female presents to the hospital for elective right carotid endarterectomy for severe right internal carotid artery stenosis greater than 80 -99% seen on CTA and carotid doppler. Patient has a recent history of left carotid endarterectomy 6 months prior and was hospitalized last month for dizziness and rule out TIA. Currently patient has no lateralizing symptoms of weakness, vision changes or speech issues. Operative Findings: Severe stenotic calcified plaque. Large inflammatory process at the carotid bulb Description of Procedure: After written and informed consent was obtained and all risks, benefits and complications were discussed, she was brought to the operative suite and laid in a beach-chair position. The neck was prepped and draped in the usual sterile fashion after appropriate anesthetic was performed per the anesthesiologist. Time out was performed in usual fashion with all partied in agreement. She was administered antibiotics prior to any incision. An oblique incision was created and dissection was carried through the platysma musculature to the carotid sheath. Upon dissection the facial vein was encountered and suture ligated in normal fashion. The internal, external, and common carotid vessels were then dissected free in a circumferential manner and controlled with vessel loops. The hypoglossal, and recurrent laryngeal nerve were visualized and spared. The patient was administered heparin and followed with serial ACT's for appropriate anticoagulation. Proximal and distal control was then clamped with vascular clamps and arteriotomy was created with 11 blade scalpel and extended with Jean-Baptiste Morales scissors. Back bleeding from internal carotid artery was assessed and substantial. Endartectomy was then performed with freer elevator and distal endpoint was feathered in usual fashion. Distal flap was tacked with 7-0 prolene suture. Free debris was removed and vessel irrigated. Patch angioplasty was then performed with bovine pericardial patch and 6-0 prolene suture in a running fashion. Prior to last suture being placed distal control was flushed and re-clamped followed by proximal control was released to allow air and debris to be flushed. It was reclamped and external carotid artery control was released and final suture was placed. The proximal control was then released allowing flow in the external system followed by internal carotid control release. Hemostasis was controlled with thrombin and gelfoam. The area was irrigated with antibiotic solution and distal vessel assessed with doppler. Good doppler signal was auscultated. A 10 REGAN drain was then placed and secured with nylon suture. Incision was then closed in a multilayer fashion. The patient tolerated the procedure well and was awoken in the OR and was following commands, moving all extremities with no focal deficits. She was then sent to PACU for recovery.
[2018-05-21] MEDS ORDERED: PANTOPRAZOLE 40 MG TABLET PO PRN (11:30)
[2018-05-21] MEDS ORDERED: ASPIRIN-ACET-CAFF 250-250-65MG 1 EACH TAB PO PRN (11:30)
[2018-05-21 12:15] LABS: Basophils % (A) 0 %; Eosinophils # (A) 0.1 k/uL (0-0.7); Eosinophils % (A) 1 %; HCT 30.8 % (34.0-46.0); Lymphocytes # (A) 0.8 k/uL (1.0-4.8); Lymphocytes % (A) 10 %; MCH 30.5 pg (25.0-35.0); MCHC 32.6 g/dL (31.0-37.0); MCV 93.5 fL (80.0-100.0); Mean Platelet Volume 7.9; Monocytes # (A) 0.1 k/uL (0-1.0); Monocytes % (A) 2 %; Neutrophils # (A) 7.4 k/uL (1.3-7.7); Neutrophils % (A) 87 %; Platelet Count 273 k/uL (150-450); RBC 3.29 m/uL (3.80-5.40); RDW 13.3 % (11.5-15.5); WBC 8.5 k/uL (3.8-10.6)
[2018-05-21 12:43] LABS: Glucose,Whole Blood 142 mg/dL (75-99)
[2018-05-21 13:10] LABS: Appearance,Urine Clear (Clear); Bilirubin,Urine Negative (Negative); Blood,Urine Negative (Negative); Color,Urine Light Yellow; Glucose,Urine (UA) Negative (Negative); Ketones,Urine Negative (Negative); Leukocyte Esterase,Urine Negative (Negative); Nitrite,Urine Negative (Negative); PH, Urine 6.5 (5.0-8.0); Protein,Urine Negative (Negative); Specific Gravity,Urine 1.004 (1.001-1.035); Urobilinogen,Urine <2.0 mg/dL (<2.0)
[2018-05-21] MEDS: HEPARIN SODIUM,PORCINE 5,000 UNIT/ML 1 ML VIAL SQ SCH ×2 (16:50→23:50)
[2018-05-21] MEDS: METOPROLOL TARTRATE 25 MG TAB PO SCH (19:55)
[2018-05-21] MEDS: traMADol 50 MG TAB PO SCH (19:56)
[2018-05-21] MEDS ORDERED: ATORVASTATIN 40 MG TAB PO SCH (21:00)
--- NOTE | 2018-05-22 05:00 | CONS ---
CONSULTATION DATE OF SERVICE: 05/21/2018 REASON FOR CONSULTATION: Advice regarding COPD and other multiple medical issues requested by Dr. Perez. HISTORY OF PRESENT ILLNESS: This 58-year-old woman with past medical history of COPD, CVA, fibromyalgia, appendectomy, being followed by Dr. Ramirez in the outpatient setting was admitted after right carotid endarterectomy for asymptomatic severe right carotid stenosis 88-90% by Dr. Perez. The patient tolerated the procedure well. Patient being closely monitored at this time. There is no history of fever, rigors. No history of chest pain, palpitation, no history of headache, loss of consciousness, seizures at this time. PAST MEDICAL HISTORY: History of THC, history of carotid endarterectomy, history of carotid stenosis, COPD, fibromyalgia, TIA, RSD, back surgery, DJD, history of UTI. MEDICATIONS PRIOR TO ADMISSION: Include home medications are: 1. Ultram 100 mg p.o. b.i.d. 2. Verapamil ER 120 mg. 3. Protonix 40 mg p.r.n. 4. Lopressor 25 mg p.o. b.i.d. 5. Plavix 75 mg p.o. daily. 6. Cipro 500 mg p.o. b.i.d. 7. Lipitor 40 mg q.h.s. 8. Caffeine that is Excedrin 1 daily p.r.n. 9. Ecotrin 81 mg. ALLERGIES: AMOXICILLIN, NICKEL, PENICILLIN. FAMILY HISTORY: History of colon cancer in the family. SOCIAL HISTORY: Previous history of smoking. No history of current alcohol intake. REVIEW OF SYSTEMS: ENT: No diminished hearing or vision. CARDIOVASCULAR: As mentioned earlier. RESPIRATORY: As mentioned earlier. GI no nausea or vomiting. : No dysuria. NERVOUS SYSTEM: No numbness or weakness. ALLERGY/IMMUNOLOGY: No asthma or hayfever. MUSCULOSKELETAL as mentioned earlier. HEMATOLOGY/ONCOLOGY: No history of anemia. ENDOCRINE: No history of diabetes or hypothyroidism. CONSTITUTIONAL: As mentioned earlier. Dermatology: Negative. Rheumatology: Negative. Psychiatry: As mentioned earlier. PHYSICAL EXAMINATION: Alert and oriented times three. Pulse is 51. Blood pressure 94/49, respirations 16, temp is normal. Pulse ox 93% on 2 L. HEENT is conjunctivae normal. Oral mucosa moist. NECK is no jugular venous distention. No carotid bruit. No lymph node enlargement. Otherwise, neck is status post right carotid endarterectomy. Cardiovascular system: S1, S2 muffled. RESPIRATORY: Breath sounds diminished in the bases. Few rhonchi. No crackles. ABDOMEN: Soft, nontender. No mass palpable. LEGS: No edema. No swelling. NERVOUS SYSTEM: Higher functions as mentioned earlier. Moves all four extremities. No focal deficits. Lymphatics: No lymph nodes palpable in the neck, axillae or groin. SKIN: No ulcer, rash or bleeding. LABS: WBC 8.4, hemoglobin is 10. ASSESSMENT: 1. Status post right carotid endarterectomy with patch angioplasty for severe right carotid stenosis 80-99 percent. 2. History of increased creatinine with possibly chronic kidney disease stage III. 3. Chronic obstructive pulmonary disease. 4. Fibromyalgia. 5. History of transient ischemic attack. 6. History are RSD. 7. History of back surgery. 8. History of degenerative joint disease. 9. History urinary tract infection. RECOMMENDATIONS AND DISCUSSION: I would recommend to continue current medications, management and symptomatic treatment. Resume the home medications. DVT prophylaxis. I would also recommend repeat labs and I would also recommend incentive spirometry. Repeat UA. Rule out the possibility of an active urinary tract infection currently. We will follow the patient closely with you. Thank you, Dr. Perez for letting us participate in the care of this patient. Patient may be asked to follow with Dr. Ramirez closely after discharge. MMODL / IJN: [id number] /
[2018-05-22 05:35] LABS: Basophils % (A) 0 %; Eosinophils % (A) 0 %; HGB 10.2 gm/dL (11.4-16.0); Lymphocytes # (A) 2.2 k/uL (1.0-4.8); Lymphocytes % (A) 19 %; MCHC 32.8 g/dL (31.0-37.0); MCV 91.4 fL (80.0-100.0); Mean Platelet Volume 7.5; Monocytes # (A) 0.6 k/uL (0-1.0); Monocytes % (A) 5 %; Neutrophils # (A) 8.6 k/uL (1.3-7.7); Neutrophils % (A) 75 %; Platelet Count 227 k/uL (150-450); RBC 3.39 m/uL (3.80-5.40); RDW 13.2 % (11.5-15.5); WBC 11.6 k/uL (3.8-10.6)
[2018-05-22 05:52] LABS: Anion Gap 4 mmol/L; Blood Urea Nitrogen 8 mg/dL (7-17); Carbon Dioxide 26 mmol/L (22-30); Chloride 111 mmol/L (98-107); Glucose 105 mg/dL (74-99); Potassium 3.9 mmol/L (3.5-5.1); Sodium 141 mmol/L (137-145)
[2018-05-22] MEDS: LACTATED RINGERS 1,000 ML IV SCH ×2 (06:47→08:15)
[2018-05-22] MEDS: HEPARIN SODIUM,PORCINE 5,000 UNIT/ML 1 ML VIAL SQ SCH ×2 (07:27→15:30)
[2018-05-22] MEDS: METOPROLOL TARTRATE 25 MG TAB PO SCH (08:02)
[2018-05-22] MEDS: traMADol 50 MG TAB PO SCH (08:03)
[2018-05-22] MEDS ORDERED: VERAPAMIL SR 120 MG TABLET.ER PO SCH (09:00)
[2018-05-22] MEDS ORDERED: ASPIRIN 81 MG PO SCH (09:00)
[2018-05-22] MEDS ORDERED: CLOPIDOGREL 75 MG TAB PO SCH (09:00)
--- NOTE | 2018-05-22 09:51 | P.CRDCN ---
History of Present Illness Consult date: 05/22/18 History of present illness: This is a pleasant 58-year-old female patient who sees Dr. Ross in the office as an outpatient who was diagnosed recently with severe asymptomatic right carotid stenosis based on a computed tomography scan. She underwent yesterday successful right carotid endarterectomy. This is postoperative patient the #1. She seems to be asymptomatic from a cardiac vascular standpoint of view, and she denies having any chest pain or discomfort, difficulty breathing, feeling of heart racing or fluttering, dizziness or lightheadedness, or syncope. Hemodynamically she is slightly hypertensive as well as bradycardic. She is on verapamil as well as metoprolol and I did recommend holding these 2 medications at this point. Beside that she is on dual antiplatelet therapy along with statin. Past Medical History Past Medical History: COPD, CVA/TIA, Fibromyalgia, Vascular Disorder Additional Past Medical History / Comment(s): 11/04/17 CVA with headache, syncope and slurred speech which resolved, elevated triglycerides, L caratid 70% stenosed and had endartectomy 12/29/17 at [facility], RSD L hand, benign colon polyps. History of Any Multi-Drug Resistant Organisms: None Reported Past Surgical History: Appendectomy, Back Surgery, Breast Surgery, Cholecystectomy, Tubal Ligation Additional Past Surgical History / Comment(s): 12/29/17 L caratid endartectomy at [facility], LEFT BREAST BX/LUMPECTOMY BENIGN, COLONOSCOPIES WITH BENIGN POLYPECTOMIES, NERVE BLOCK TO NECK X3, LOW BACK SURGERY, NEURO STIMULATOR IN LOW BACK NOT CONNECTED TO WIRES. Past Anesthesia/Blood Transfusion Reactions: No Reported Reaction Past Psychological History: No Psychological Hx Reported Additional Psychological History / Comment(s): Pt lives with ex-. She uses no assistive device but has a cane and a walker if she ever needs to. She drives. Additional Past Alcohol Use History / Comment(s): patient stated smoking a week ago and then quit. - Past Family History Father Family Medical History: Cancer Additional Family Medical History / Comment(s): COLON CANCER. Father is . Mother Family Medical History: Cancer Additional Family Medical History / Comment(s): Mother is . liver cancer Medications and Allergies Home Medications Medication Instructions Recorded Confirmed Type traMADol HCl [Ultram] 100 mg PO BID 01/22/16 05/21/18 History Atorvastatin [Lipitor] 40 mg PO HS #30 tab 11/09/17 05/21/18 Rx Clopidogrel Bisulfate [Plavix] 75 mg PO DAILY #30 tab 01/28/18 05/21/18 Rx Verapamil HCl [Verapamil ER] 120 mg PO DAILY 05/05/18 05/21/18 History Aspirin EC [Ecotrin Low Dose] 81 mg PO DAILY #30 tablet. 05/07/18 05/21/18 Rx Aspirin/Acetaminophen/Caffeine 1 each PO DIRECTED PRN 05/19/18 05/21/18 History [Excedrin Migraine Caplet] Ciprofloxacin HCl [Cipro] 500 mg PO Q12HR 05/19/18 05/21/18 History Metoprolol Tartrate [Lopressor] 25 mg PO BID 05/19/18 05/21/18 History Pantoprazole [Protonix] 40 mg PO AC-BRKFST PRN 05/19/18 05/21/18 History Allergies Allergy/AdvReac Type Severity Reaction Status Date / Time amoxicillin Allergy Dyspnea Verified 05/21/18 12:14 nickel AdvReac Rash/Hives Verified 05/21/18 12:14 Penicillins AdvReac Dyspnea Verified 05/21/18 12:14 Physical Exam Vitals: Vital Signs Temp Pulse Pulse Resp BP BP BP 05/22/18 09:00 62 22 83/54 05/22/18 08:30 60 14 83/54 05/22/18 08:00 54 L 18 93/61 05/22/18 07:30 52 L 15 93/61 05/22/18 07:00 50 L 18 92/59 05/22/18 06:30 49 L 14 92/59 05/22/18 06:00 48 L 17 87/55 05/22/18 05:30 50 L 15 92/39 05/22/18 05:00 97.8 F 51 L 15 87/43 05/22/18 04:30 48 L 19 112/49 05/22/18 04:00 98.8 F 50 L 17 100/45 05/22/18 03:30 47 L 18 88/43 05/22/18 03:00 45 L 16 81/48 05/22/18 02:30 54 L 15 89/46 05/22/18 02:00 51 L 17 94/49 05/22/18 01:30 51 L 17 89/51 05/22/18 01:00 52 L 17 05/22/18 00:30 55 L 19 84/47 05/22/18 00:00 98.5 F 51 L 14 88/50 05/21/18 23:30 49 L 15 85/55 05/21/18 23:12 52 L 16 88/56 05/21/18 23:00 51 L 16 94/49 05/21/18 22:30 56 L 17 94/49 05/21/18 22:00 53 L 18 85/46 05/21/18 21:30 51 L 17 85/46 05/21/18 21:00 51 L 16 86/49 05/21/18 20:30 66 17 86/49 05/21/18 20:00 53 L 18 84/47 05/21/18 19:30 53 L 18 84/47 05/21/18 19:00 52 L 13 86/47 05/21/18 18:30 60 17 85/70 05/21/18 18:00 52 L 17 87/45 05/21/18 17:30 58 L 14 87/45 05/21/18 17:00 62 12 87/49 05/21/18 16:30 53 L 18 05/21/18 16:00 98.0 F 62 59 L 18 05/21/18 15:30 58 L 18 93/46 05/21/18 15:00 57 L 17 93/46 05/21/18 14:30 64 13 93/46 05/21/18 14:00 64 16 97/51 05/21/18 13:30 63 16 05/21/18 13:00 97.6 F 75 18 97/51 05/21/18 12:31 72 12 05/21/18 12:15 59 L 16 91/52 103/54 05/21/18 12:01 59 L 16 88/50 97/46 05/21/18 11:45 55 L 16 89/53 101/48 05/21/18 11:29 98.2 F 75 16 102/57 123/37 Pulse Ox 05/22/18 09:00 93 L 05/22/18 08:30 94 L 05/22/18 08:00 94 L 05/22/18 07:30 94 L 05/22/18 07:00 93 L 05/22/18 06:30 95 05/22/18 06:00 95 05/22/18 05:30 95 05/22/18 05:00 93 L 05/22/18 04:30 93 L 05/22/18 04:00 94 L 05/22/18 03:30 93 L 05/22/18 03:00 93 L 05/22/18 02:30 93 L 05/22/18 02:00 94 L 05/22/18 01:30 92 L 05/22/18 01:00 93 L 05/22/18 00:30 92 L 05/22/18 00:00 91 L 05/21/18 23:30 93 L 05/21/18 23:12 92 L 05/21/18 23:00 93 L 05/21/18 22:30 94 L 05/21/18 22:00 92 L 05/21/18 21:30 91 L 05/21/18 21:00 91 L 05/21/18 20:30 93 L 05/21/18 20:00 93 L 05/21/18 19:30 93 L 05/21/18 19:00 93 L 05/21/18 18:30 92 L 05/21/18 18:00 91 L 05/21/18 17:30 94 L 05/21/18 17:00 95 05/21/18 16:30 97 05/21/18 16:00 96 05/21/18 15:30 96 05/21/18 15:00 96 05/21/18 14:30 94 L 05/21/18 14:00 93 L 05/21/18 13:30 94 L 05/21/18 13:00 96 05/21/18 12:31 05/21/18 12:15 99 05/21/18 12:01 100 05/21/18 11:45 99 05/21/18 11:29 96 Intake and Output 05/21/18 05/22/18 05/22/18 22:59 06:59 14:59 Intake Total 1840 600 400 Output Total 1160 1000 160 Balance 680 -400 240 Intake: IV 240 600 40 Lactated Ringers 1,000 ml 240 600 40 @ 80 mls/hr IV .[id number] [facility] Rx#:[id number] Intake, IV Titration 400 Amount Lactated Ringers 1,000 ml 400 @ 80 mls/hr IV .[id number] [facility] Rx#:[id number] Oral 1200 360 Output: Drainage 10 25 Right Neck 10 25 Urine 1150 1000 135 Other: Voiding Method Indwelling Catheter Indwelling Catheter Indwelling Catheter Weight 62.8 kg ABP, PAP, CO, CI - Last 8 Hours Arterial Blood Pressure 57/32 Arterial Blood Pressure 92/39 Arterial Blood Pressure 32/32 Arterial Blood Pressure 99/44 Arterial Blood Pressure 102/46 Arterial Blood Pressure 85/43 Arterial Blood Pressure 82/40 - Constitutional General appearance: no acute distress - Respiratory Respiratory: bilateral: CTA - Cardiovascular Rhythm: regular Heart sounds: normal: S1, S2 Results 05/22/18 05:00 05/22/18 05:00 CBC 05/21/18 05/22/18 Range/Units 11:53 05:00 WBC 8.5 11.6 H (3.8-10.6) k/uL RBC 3.29 L 3.39 L (3.80-5.40) m/uL Hgb 10.0 L D 10.2 L (11.4-16.0) gm/dL Hct 30.8 L 31.0 L (34.0-46.0) % Plt Count 273 227 (150-450) k/uL Comprehensive Metabolic Panel 05/22/18 Range/Units 05:00 Sodium 141 (137-145) mmol/L Potassium 3.9 (3.5-5.1) mmol/L Chloride 111 H (98-107) mmol/L Carbon Dioxide 26 (22-30) mmol/L BUN 8 (7-17) mg/dL Creatinine 0.73 (0.52-1.04) mg/dL Glucose 105 H (74-99) mg/dL Calcium 9.0 (8.4-10.2) mg/dL Current Medications Generic Name Dose Route Start Last Admin Trade Name Freq PRN Reason Stop Dose Admin Acetaminophen 650 mg 05/21/18 11:28 Tylenol Tab PO Q4HR PRN MILD Pain Acetaminophen/Aspirin/Caffeine 1 each 05/21/18 11:30 Excedrin PO DIRECTED PRN migraines Hydrocodone Bitart/Acetaminophen 1 each 05/21/18 11:28 05/21/18 12:56 [place] 5-325 PO 1 each Q6HR PRN Administration Pain Scale 4 to 6 Al Hydroxide/Mg Hydroxide 30 ml 05/21/18 11:28 Maalox PO Q6HR PRN Indigestion Aspirin 81 mg 05/22/18 09:00 05/22/18 08:04 Aspirin PO 81 mg DAILY [facility] Administration Atorvastatin Calcium 40 mg 05/21/18 21:00 05/21/18 19:53 Lipitor PO 40 mg HS [facility]ACE Administration Benzocaine/Menthol 1 each 05/21/18 11:28 05/21/18 12:55 Cepacol Lozenge MUCOUS MEM 1 each Q2HR PRN Administration Sore Throat Clopidogrel Bisulfate 75 mg 05/22/18 09:00 05/22/18 08:04 Plavix PO 75 mg DAILY [facility] Administration Heparin Sodium (Porcine) 5,000 unit 05/21/18 16:00 05/22/18 07:27 Heparin SQ 5,000 unit Q8HR [facility] Administration Lactated Ringer's 1,000 mls @ 20 mls/hr 05/21/18 06:00 05/22/18 06:47 Lactated Ringers IV 20 mls/hr .Q24H [facility] Administration Nitroglycerin/Dextrose 50 mg/ 250 mls @ 0 mls/hr 05/21/18 08:00 IV Solution IV .Q0M [facility] Protocol Titrate Phenylephrine HCl 40 mg/ 254 mls @ 0 mls/hr 05/21/18 08:15 Sodium Chloride IV .Q0M [facility] Protocol Titrate Lactated Ringer's 1,000 mls @ 80 mls/hr 05/21/18 11:30 05/22/18 08:15 Lactated Ringers IV Not Given .[id number] [facility] Lidocaine HCl 0.1 ml 05/21/18 05:51 05/21/18 07:15 .Xylocaine 1% Inj (10mg/Ml) For Iv Start INTRADERMA 0.1 ml PER PROTOCOL PRN Administration IV Start Metoprolol Tartrate 25 mg 05/21/18 21:00 05/22/18 08:02 Lopressor PO Not Given BID [facility] Morphine Sulfate 2 mg 05/21/18 11:28 Morphine Sulfate (Inj) IVP Q4H PRN Pain Scale 7 to 8 Pantoprazole Sodium 40 mg 05/21/18 11:30 05/22/18 06:45 Protonix PO 40 mg AC-BRKFST PRN Administration Heartburn Tramadol HCl 100 mg 05/21/18 21:00 05/22/18 08:03 Ultram PO Not Given BID [facility] Trimethobenzamide HCl 200 mg 05/21/18 11:28 Tigan IM Q4HR PRN Nausea And Vomiting Verapamil HCl 120 mg 05/22/18 09:00 05/22/18 08:03 Isoptin Sr PO Not Given DAILY [facility] Intake and Output 05/21/18 05/22/18 05/22/18 22:59 06:59 14:59 Intake Total 1840 600 400 Output Total 1160 1000 160 Balance 680 -400 240 Intake: IV 240 600 40 Lactated Ringers 1,000 ml 240 600 40 @ 80 mls/hr IV .[id number] [facility] Rx#:[id number] Intake, IV Titration 400 Amount Lactated Ringers 1,000 ml 400 @ 80 mls/hr IV .[id number] [facility] Rx#:[id number] Oral 1200 360 Output: Drainage 10 25 Right Neck 10 25 Urine 1150 1000 135 Other: Voiding Method Indwelling Catheter Indwelling Catheter Indwelling Catheter Weight 62.8 kg 05/22/18 05:00 05/22/18 05:00 Assessment and Plan Assessment: Assessment #1 asymptomatic severe right carotid disease. #2 status post right carotid endarterectomy #3 hypertension #4 bradycardia Plan Continue dual antiplatelet therapy along with a statin I did advise holding the metoprolol as well as verapamil Follow-up with the patient
[2018-05-22] MEDS ORDERED: SODIUM CHLORIDE 0.9% 500 ML 500 ML IV ONE (12:39)
--- NOTE | 2018-05-22 13:22 | PN ---
PROGRESS NOTE This patient had a right carotid endarterectomy done by Dr. Aki Perez. I am following her postoperatively. The patient was seen in the intensive care unit. Her blood pressure is 113/65. Neuro stable. Patient's incision is healing well. Patient wants to go home. I discussed with Dr. Soto. The patient is stable from medical point of view. She can go home today and follow up in [address] Perez's office. MMODL / IJN: [id number] /
[2018-05-22 13:25] VITALS: TEMP 97.9
[2018-05-22 14:53] VITALS: BP 105/54
[2018-05-22 15:25] VITALS: PULSE 51; RESP 15
--- NOTE | 2018-05-22 16:46 | PN ---
PROGRESS NOTE DATE OF SERVICE: 05/22/2018 This 58-year-old woman who was admitted after right carotid enterectomy had relative hypotension last night. The patient is improving significantly. Creatinine is normal at 0.73. WBC 11.6. Hemoglobin is 10.2. No chest pain. No palpitations. No fever. Dr. Birmingham, who is covering for Dr. Perez, is planning the patient to be discharged. No chest pain. No palpitation. On exam, alert and oriented x3. Pulse 63, blood pressure 106/54. No orthostatic changes. Respiration 18, temperature 97.9, pulse ox 92% on room air. HEENT: Conjunctivae normal. NECK: No jugular venous distention. CARDIOVASCULAR SYSTEM: S1, S2 muffled. RESPIRATORY SYSTEM: Breath sounds diminished at the bases. No rhonchi. No crackles. ABDOMEN: Soft, non-tender. NERVOUS SYSTEM: No focal deficit. LABS: WBC 11.6, hemoglobin 10.2. ASSESSMENT: 1. Status post right carotid endarterectomy with patch angioplasty for severe right carotid stenosis, 80% to 99%. 2. History of increased creatinine with possible chronic kidney disease, stage III. 3. Chronic obstructive pulmonary disease. 4. Fibromyalgia. 5. History of transient ischemic attack. 6. History of RSD. 7. History of back surgery. 8. History of degenerative joint disease. 9. History of urinary tract infection. RECOMMENDATIONS AND DISCUSSION: I recommend to continue current medication, continue symptomatic treatment. Blood pressure is stabilized. I would recommend to continue with the blood pressure medications and hold for systolic less than 100. Otherwise, rest of the recommendations and discharge per Dr. Birmingham and Dr. Perez. Stable. Overall prognosis guarded. Recommend close followup with Dr. Ramirez in the outpatient setting. Paperwork completed at the request of Dr. Birmingham. MMODL / IJN: [id number] /
== END 2018-05-22 16:00 | disposition home or self-care (01) | DRG 39 ==
LOC: 2ORMAIN 06:36 → 2SICU 11:17
PROVIDERS: ADMIT Surgery; ATTEND Surgery
PROC: 03UK0JZ Supplement Right Internal Carotid Artery with Synthetic Substitute, Open Approach (ICD-10-PCS; principal; 2018-05-21 08:30)
PROC: 03CK0ZZ Extirpation of Matter from Right Internal Carotid Artery, Open Approach (ICD-10-PCS; principal; 2018-05-21 08:30)
DX: I65.21 Occlusion and stenosis of right carotid artery (principal); E78.1 Pure hyperglyceridemia; I10 Essential (primary) hypertension; J44.9 Chronic obstructive pulmonary disease, unspecified; M79.7 Fibromyalgia; Z79.02 Long term (current) use of antithrombotics/antiplatelets; Z79.82 Long term (current) use of aspirin; Z79.899 Other long term (current) drug therapy; Z80.0 Family history of malignant neoplasm of digestive organs; Z86.010 Personal history of colon polyps; Z86.73 Personal history of transient ischemic attack (TIA), and cerebral infarction without residual deficits; Z87.440 Personal history of urinary (tract) infections; Z87.891 Personal history of nicotine dependence; Z88.1 Allergy status to other antibiotic agents; Z90.49 Acquired absence of other specified parts of digestive tract
CPT/HCPCS: 80048; 81003; 84484; 85025; 86850; 86900; 86901; 88304

== ENCOUNTER → 2019-10-20 | Outpatient (CLI) | payer MEDICARE, OTHER ==
[2019-10-20 10:11] LABS: HCT 42.3 % (34.0-46.0); HGB 13.5 gm/dL (11.4-16.0); MCH 29.4 pg (25.0-35.0); MCHC 31.9 g/dL (31.0-37.0); MCV 91.9 fL (80.0-100.0); Mean Platelet Volume 7.3; Platelet Count 337 k/uL (150-450); RDW 12.4 % (11.5-15.5); WBC 8.7 k/uL (3.8-10.6)
[2019-10-20 13:56] LABS: Erythrocyte Sedimentation Rate 15 mm/hr (0-20)
[2019-10-20 19:10] LABS: African American GFR (CKD) 71.4 (60.0-200.0); Albumin 4.3 g/dL (3.80-4.90); Albumin/Globulin Ratio 1.79 (1.60-3.17); Anion Gap 10.6 mmol/L (4.00-12.00); Calcium 9.2 mg/dL (8.7-10.3); Carbon Dioxide 24.4 mmol/L (21.6-31.8); Globulin 2.4 g/dL (1.6-3.3); Non-African American GFR(CKD) 61.6 (60.0-200.0); Potassium 4.5 mmol/L (3.5-5.5); Total Bilirubin 0.4 mg/dL (0.3-1.2); Total Protein 6.7 g/dL (6.2-8.2)
[2019-10-24 08:22] LABS: ANA Pattern Speckled; ANA Pattern 2 Nucleolar
== END | disposition home or self-care (01) ==
LOC: LABWHC1 09:24
PROVIDERS: ATTEND Internal Medicine
DX: M54.5 Low back pain (principal); K59.00 Constipation, unspecified; R30.0 Dysuria; M79.604 Pain in right leg; R53.83 Other fatigue
CPT/HCPCS: 36415; 80053; 84443; 85027; 85652; 86038; 86039; 86431

== ENCOUNTER → 2019-12-06 | Outpatient (CLI) | payer MEDICARE, OTHER ==
--- NOTE | 2019-12-12 09:09 | MM ---
Reason for exam: screening (asymptomatic). Last mammogram was performed 2 years and 5 months ago. History: Excisional biopsy of the left breast. Physical Findings: A clinical breast exam by your physician is recommended on an annual basis and results should be correlated with mammographic findings. MG 3D Screening Mammo W/Cad Bilateral CC and MLO view(s) were taken. Prior study comparison: July 17, 2017, bilateral MG 3d screening mammo w/cad. The breast tissue is heterogeneously dense. This may lower the sensitivity of mammography. Finding #1: There is a 6 mm circumscribed round mass in the outer quadrant, middle posterior position of the left breast. Finding #2: There are typically benign dystrophic, round calcifications in both breasts. Increase in size since July 17, 2017. ASSESSMENT: Incomplete: need additional imaging evaluation, BI-RAD 0 RECOMMENDATION: Ultrasound of the left breast. [facility] will attempt to contact patient to return for ultrasound.
== END | disposition home or self-care (01) ==
LOC: RADMAMWWP 13:11
PROVIDERS: ATTEND Internal Medicine
DX: Z12.31 Encounter for screening mammogram for malignant neoplasm of breast (principal)
CPT/HCPCS: 77063; 77067

== ENCOUNTER → 2019-12-23 | Outpatient (CLI) | payer MEDICARE, OTHER ==
--- NOTE | 2019-12-23 13:45 | USB ---
Reason for exam: additional evaluation requested from abnormal screening. History: Excisional biopsy of the left breast. Physical Findings: Nurse did not find any significant physical abnormalities on exam. US Breast Workup Limited LT Left limited breast ultrasound including focal area of concern, retroareolar and axilla demonstrates a 0.4 x 0.4 x 0.3cm cystic lesion at 3 o'clock and a 1.2 x 1.0 x 1.1cm lymph nodes at the axilla, cortex 0.4cm. These results were verbally communicated with the patient and result sheet given to the patient on 12/23/19. ASSESSMENT: Probably benign, BI-RAD 3 RECOMMENDATION: Follow-up diagnostic mammogram and ultrasound of the left breast in 6 months.
== END | disposition home or self-care (01) ==
LOC: RADUSWWP 12:47
PROVIDERS: ATTEND Internal Medicine
DX: R92.8 Other abnormal and inconclusive findings on diagnostic imaging of breast (principal)

== ENCOUNTER → 2020-01-06 | Outpatient (CLI) | payer MEDICARE, OTHER ==
--- NOTE | 2020-01-09 21:42 | CT ---
EXAMINATION TYPE: CT lumbar spine w con DATE OF EXAM: 01/06/2020 COMPARISON: CT lumbar spine 02/20/2014. HISTORY: Lower back pain CT DLP: 861 mGycm Automated exposure control for dose reduction was used. CONTRAST: CT scan of the lumbar is performed with IV Contrast, patient injected with 100 mL of Isovue 300. Enhanced CT of the lumbar spine was performed. Bone and soft tissue window settings are submitted as well as coronal and sagittal reconstructions. Decreased osseous mineralization. There is unchanged mild compression deformity of the superior endpl ate of L1. Diffuse osteophytic spurring. L1-L2: Grade 1 retrolisthesis of L1 on L2. Disc space narrowing. Disc bulge with superimposed central disc protrusion with mass effect on the ventral aspect of the thecal sac and mild central stenosis. L2-L3: Mild disc space narrowing. Disc bulging with mild central stenosis. L3-L4: Grade 1 retrolisthesis of L3 on L4. Disc space narrowing and disc bulge. Moderate to severe ce ntral stenosis. Facet arthropathy. Moderate bilateral neural foramina narrowing. L4-L5: Mild disc space narrowing. Disc bulging with superimposed right subarticular protrusion with s ignificant mass effect on the right lateral recess and severe central stenosis. Facet arthropathy. Mo derate to severe severe bilateral neural foramina narrowing. L5-S1: Bilateral laminectomy postsurgical changes. Grade 1 retrolisthesis of L5 on S1. Disc space tena rowing. No central stenosis. Facet arthropathy. Moderate to severe bilateral neural foramina narrowin g. Left renal cyst. IMPRESSION: 1. Multilevel degenerative disc disease, grade 1 retrolistheses, and facet arthropathy contribute to varying degrees of central stenosis and neural foramina narrowing. There is moderate to severe centra l stenosis at L3-4. There is severe central stenosis at L4-L5 with significant mass effect on the rig ht lateral recess. 2. Unchanged mild superior endplate compression deformity of L1. 3. Decreased osseous mineralization.
== END | disposition home or self-care (01) ==
LOC: RADCTMAIN 13:44
PROVIDERS: ATTEND Psychiatry & Neurology Neurology
DX: M48.061 Spinal stenosis, lumbar region without neurogenic claudication (principal); M99.73 Connective tissue and disc stenosis of intervertebral foramina of lumbar region; M51.36 Other intervertebral disc degeneration, lumbar region; M43.16 Spondylolisthesis, lumbar region; M47.816 Spondylosis without myelopathy or radiculopathy, lumbar region; M81.0 Age-related osteoporosis without current pathological fracture; G95.29 Other cord compression; Z88.0 Allergy status to penicillin; Z88.1 Allergy status to other antibiotic agents; Z98.1 Arthrodesis status
CPT/HCPCS: 72132; Q9967

== ENCOUNTER → 2020-02-08 | Outpatient (CLI) | payer MEDICARE, OTHER ==
--- NOTE | 2020-02-08 12:29 | CT ---
EXAMINATION TYPE: CT urogram wo/w con DATE OF EXAM: 02/08/2020 HISTORY: Hematuria with internal bladder pain per patient CT DLP: 1719.7mGycm Automated Exposure Control for Dose Reduction was Utilized. CONTRAST: CT scan of the abdomen and pelvis is performed without and with IV Contrast, patient injected with 10 0 mL of Isovue 370. COMPARISON: FINDINGS: LUNG BASES: No significant abnormality is appreciated. LIVER/GB: Patient is post cholecystectomy. PANCREAS low-attenuation within the liver could be due to hepatic steatosis. SPLEEN: No significant abnormality is seen. ADRENALS: No significant abnormality is seen. KIDNEYS: Focal cortical defect noted at the upper pole of the posterior aspect of the right kidney, t here is a cortical cyst at the midpole the left kidney measuring 18 mm. The ureters show normal cours e and caliber. There is no evident nephrolithiasis or hydronephrosis. No ureteral calcification. No e vident bladder mass. BOWEL: No significant abnormality is seen. UTERUS/ADNEXA: No gross abnormality seen. LYMPH NODES: No greater than 1cm abdominal or pelvic lymph nodes are appreciated. OSSEOUS STRUCTURES: Degenerative disc changes are present in the visualized spine.. OTHER: No significant additional abnormality is seen. IMPRESSION: Scarring suspected within the right kidney. Cortical cyst left kidney. Evaluation of the bladder may be somewhat limited by luminal contrast.
== END | disposition home or self-care (01) ==
LOC: RADCTMAIN 10:14
PROVIDERS: ATTEND Urology
DX: N28.1 Cyst of kidney, acquired (principal); R31.9 Hematuria, unspecified; Z88.0 Allergy status to penicillin
CPT/HCPCS: 74178; 74400; Q9967

== ENCOUNTER → 2020-06-13 | Outpatient (CLI) | payer MEDICARE, OTHER ==
--- NOTE | 2020-06-13 11:32 | MM ---
Reason for exam: additional evaluation requested from prior study. Last mammogram was performed 6 months ago. History: Patient is postmenopausal. Excisional biopsy of the left breast. Physical Findings: Nurse did not find any significant physical abnormalities on exam. MG Diagnostic Mammo LT w CAD CC, MLO, LM, CC with magnification, and LM with magnification view(s) were taken of the left breast. Prior study comparison: December 06, 2019, bilateral MG 3d screening mammo w/cad. July 17, 2017, bilateral MG 3d screening mammo w/cad. There are scattered fibroglandular densities. 5mm nodule posterior 3 o'clock stable for 6 months, noted to be larger from 2018, likely intramammary node. Upper inner quadrant grouped calcifications new from 6 months ago at 11 o'clock are heterogeneous on magnification views. Biopsy recommended. These results were verbally communicated with the patient and result sheet given to the patient on 06/13/20. ASSESSMENT: Incomplete: need additional imaging evaluation, BI-RAD 0 RECOMMENDATION: Ultrasound of the left breast.
--- NOTE | 2020-06-13 11:36 | USB ---
Reason for exam: follow-up at short interval from prior study. History: Patient is postmenopausal. Excisional biopsy of the left breast. US Breast LT Left complete breast ultrasound includes all four quadrants, the retroareolar region and axilla. Finding demonstrates a 0.2 x 0.3 x 0.2cm round, solid, calcification at 12 o'clock, a 0.4 x 0.4 x 0.3cm round, solid, calcification at 2 o'clock, compatible with benign oil cysts on mammogram, a 0.4 x 0.3 x 0.4cm oval, cystic lesion at 3 o'clock, benign, may correspond to the 5mm mammographic nodule and a 1.6 x 1.9 x 1.2cm lymph node at the axilla, borderline enlarged but prominent nodes were present back to 2018, likely chronic reactive. These results were verbally communicated with the patient and result sheet given to the patient on 06/13/20. ASSESSMENT: Suspicious, BI-RAD 4 RECOMMENDATION: Stereotactic core biopsy of the left breast. (11 o'clock calcification) Called Dr. Ramirez's office and left message with mammographic findings and has scheduled an appointment for the patient for 06/28/20 at 9:[address] Maxwell. PRELIMINARY REPORT CALLED AND FAXED TO DR. MAXWELL ON 06/13/20.
== END | disposition home or self-care (01) ==
LOC: RADMAMWWP 09:25
PROVIDERS: ATTEND Internal Medicine
DX: R92.8 Other abnormal and inconclusive findings on diagnostic imaging of breast (principal)
CPT/HCPCS: 77065

== ENCOUNTER → 2020-07-16 | Day surgery (SDC) | payer MEDICARE, OTHER ==
[2020-07-16 09:16] VITALS: RESP 16
[2020-07-16 10:57] VITALS: BP 136/84; PULSE 76; TEMP 97.9
--- NOTE | 2020-07-16 12:37 | MM ---
EXAMINATION TYPE: MG stereo VAD BX LT DATE OF EXAM: 07/16/2020 COMPARISON: 06/13/2020 CLINICAL HISTORY: 60-year-old female R92.8, abnormal mammogram. Referred posterior tactic biopsy of left breast microcalcifications. TECHNIQUE: Stereotactic guided core biopsy of 11:00 left breast microcalcifications. FINDINGS: The procedure of stereotactic guided core biopsy was explained to the patient. Benefits, alternatives, and risks were discussed. An informed consent was then obtained. The shortness pathway for biopsy was chosen. [facility] superior [facility]. I performed the localization followed by the remainder of the procedure. A vacuum assisted biopsy gun was used to obtain 5 core samples. The patient tolerated the procedure well without any immediate complication. The patient was kept in the radiology department for short stay after the procedure and then discharged home in stable condition. Targeted calcifications are identified in specimen mammogram. Post biopsy mammogram shows the clip to appear in satisfactory position relative to the targeted area of concern on the preprocedure images. IMPRESSION: SUCCESSFUL, UNCOMPLICATED STEREOTACTIC GUIDED CORE BIOPSY OF 11:00 LEFT BREAST MICROCALCIFICATIONS. FULL PATHOLOGY RESULTS TO FOLLOW. Pathology Results: Benign LEFT BREAST, CORE BIOPSY: Benign breast tissue with focal fat necrosis, chronic inflammation, and fibrosis. Focal microcalcification identified. Negative for in situ or invasive carcinoma. Recommendation Follow up mammogram of the left breast in 6 months. MATILDAD
== END ==
LOC: RADMAMWWP 08:50
PROVIDERS: ATTEND Surgery
DX: R92.8 Other abnormal and inconclusive findings on diagnostic imaging of breast (principal)
CPT/HCPCS: 19081; 88305; A4648; J2001

== ENCOUNTER → 2020-12-24 | Outpatient (CLI) | payer MEDICARE, OTHER ==
--- NOTE | 2020-12-24 09:43 | MM ---
Reason for exam: follow-up at short interval from prior study. Last mammogram was performed 6 months ago. History: Patient is postmenopausal. Benign MG stereo VAD BX LT of the left breast, July 16, 2020. Excisional biopsy of the left breast. Physical Findings: Nurse did not find any significant physical abnormalities on exam. MG 3D Diag Mammo W/Cad ZEESHAN Bilateral CC and MLO view(s) were taken. Prior study comparison: June 13, 2020, left breast MG diagnostic mammo LT w CAD. December 06, 2019, bilateral MG 3d screening mammo w/cad. The breast tissue is heterogeneously dense. This may lower the sensitivity of mammography. Stable benign calcifications. Previous mammotome biopsy in the left breast. No significant new findings when compared with previous films. These results were verbally communicated with the patient and result sheet given to the patient on 12/24/20. ASSESSMENT: Benign, BI-RAD 2 RECOMMENDATION: Routine screening mammogram of both breasts in 1 year.
== END | disposition home or self-care (01) ==
LOC: RADMAMWWP 08:42
PROVIDERS: ATTEND Surgery
DX: Z12.31 Encounter for screening mammogram for malignant neoplasm of breast (principal); R92.8 Other abnormal and inconclusive findings on diagnostic imaging of breast
CPT/HCPCS: 77066; G0279; 77062

== ENCOUNTER 2021-01-25 09:20 | Day surgery (SDC) | payer MEDICARE, OTHER ==
[2021-01-22 15:12] VITALS: BMI 28.1
[~2021-01-25 09:20] MED LIST changes: -CLINDAMYCIN 900 MG in DEXTROSE 5% IN WATER 50 ML IVPB ONE; -DEXAMETHASONE SOD PHOSPHATE 10 MG/ML 1 ML VIAL IV ONE; -HYDROmorphone 0.5 MG/0.5 ML SYRINGE IVP PRN; +LACTATED RINGERS 1,000 ML IV SCH; -LIDOCAINE 1% 20 ML VIAL (10MG/ML) FOR IV START INTRADERMA PRN; -ONDANSETRON 4 MG/2 ML VIAL IVP ONE; -SCOPOLAMINE 1.5MG/72HR PATCH TRANSDERM ONE
[2021-01-25 09:50] VITALS: TEMP 96.4
[2021-01-25] MEDS ORDERED: LIDOCAINE 1% INJ 10MG/ML (20 ML MDV) ONE (10:43)
[2021-01-25] MEDS ORDERED: PROPOFOL 10 MG/ML 20 ML VIAL IV ONE (10:43)
[2021-01-25] MEDS ORDERED: IV FLUID CONTINUATION 150 ML IV ONE (11:51)
[2021-01-25 11:55] VITALS: RESP 16
--- NOTE | 2021-01-25 11:59 | P.PCN ---
Date of Procedure: 01/25/21 Procedure(s) Performed: Brief history: Patient is a pleasant 61-year-old white female scheduled for an elective upper endoscopy as well as colonoscopy as a part of evaluation of GERD and by history of colon polyps.. Father was diagnosed with colon cancer at age 60. Procedure performed: Esophagogastroduodenoscopy with biopsy Colonoscopy with snare polypectomy and argon plasma coagulation Preoperative diagnosis: GERD History of colon polyps and family history of colon cancer Anesthesia: MAC Procedure: After informed consent was obtained from the patient was brought into the endoscopy unit and IV sedation was administered by anesthesia under continuous monitoring. Initially upper endoscopy was done. The Olympus GF 160 video endoscope was inserted inserted into the mouth and esophagus intubated without any difficulty and was gradually advanced into the stomach and duodenum and carefully examined. The bulb and second part of the duodenum appeared normal. The scope was then withdrawn into the stomach adequately insufflated with air and upon careful examination the antrum had mild gastritis and biopsies were done from this area. The body, cardia and fundus appeared normal. The scope was then withdrawn into the esophagus. The GE junction was located at 40 cm to the incisors. It appeared re circumferential erythema and 2 erosions consistent with LA grade B reflux esophagitis. Rest of the esophagus appeared normal. Patient tolerated the procedure well. At this time the patient continued to remain sedation. Initial digital rectal examination was normal. Olympus CF 160 video colonoscope was then inserted into the rectum and gradually advanced to the cecum without any difficulty. Careful examination was performed as the scope was gradually being withdrawn. The prep was excellent. in the cecum there was a 1 cm flat polyp removed by snare polypectomy. In the ascending colon there were 2 broad-based polyps measuring 2 cm and 3 cm in size both of which were removed by snare polypectomy followed by argon plasma coagulation and normal complete polypectomy was accomplished. In the hepatic flexure there was a 3 cm broad-based polyp that was removed by piecemeal snare polypectomy followed by argon plasma coagulation. Adjacent to this area there was a 1 cm polyp removed by snare polypectomy. The transverse colon and descending colon appeared normal. In the sigmoid colon there was a 1 cm polyp removed by snare polypectomy. Rest of the, sigmoid colon and rectum appeared normal. Retroflexion was performed in the rectum and no lesions were noted. Patient tolerated the procedure well. Impression: 1. Upper endoscopy revealed small hiatal hernia, LA grade B reflux esophagitis and mild gastritis 2. Colonoscopy revealed" a) 1 cm cecal polyp status post polypectomy b) 2 polyps in the ascending colon measuring 2 cm and 3 cm both of which were broad-based status post piecemeal snare polypectomy followed by argon plasma coagulation. Almost complete polypectomy was accomplished c) 3-3.5 cm broad-based hepatic flexure polyp and 1 cm hepatic flexure polyp removed by snare polypectomy followed by argon plasma coagulation] d) 1 cm sigmoid polyp status post-polyp Recommendations: Findings of this examination were discussed with the patient as well as her family. She was advised to follow with the biopsy results. She'll be seen in office in 2 weeks. Reason the biopsy results will plan a repeat colonoscopy in 3-6 months
[2021-01-25 12:02] VITALS: BP 148/78; PULSE 74
== END 2021-01-25 12:28 | disposition home or self-care (01) ==
LOC: ORWHC2ENDO 09:20
PROVIDERS: ATTEND Internal Medicine Gastroenterology
DX: Z12.11 Encounter for screening for malignant neoplasm of colon (principal); D12.0 Benign neoplasm of cecum; D12.2 Benign neoplasm of ascending colon; D12.5 Benign neoplasm of sigmoid colon; D12.3 Benign neoplasm of transverse colon; K29.50 Unspecified chronic gastritis without bleeding; K22.10 Ulcer of esophagus without bleeding; K21.00 Gastro-esophageal reflux disease with esophagitis, without bleeding; K44.9 Diaphragmatic hernia without obstruction or gangrene; Z80.0 Family history of malignant neoplasm of digestive organs; Z86.010 Personal history of colon polyps; I10 Essential (primary) hypertension; J44.9 Chronic obstructive pulmonary disease, unspecified; Z87.891 Personal history of nicotine dependence; Z86.73 Personal history of transient ischemic attack (TIA), and cerebral infarction without residual deficits; Z90.49 Acquired absence of other specified parts of digestive tract; Z98.51 Tubal ligation status; Z98.890 Other specified postprocedural states; Z97.2 Presence of dental prosthetic device (complete) (partial); Z79.02 Long term (current) use of antithrombotics/antiplatelets; Z79.82 Long term (current) use of aspirin; Z79.891 Long term (current) use of opiate analgesic; Z79.899 Other long term (current) drug therapy; Z88.0 Allergy status to penicillin
CPT/HCPCS: 88305; 45385; 43239; J2001; J2704; 45388

== ENCOUNTER 2021-08-02 08:20 | Day surgery (SDC) | payer MEDICARE, OTHER ==
[2021-07-31 11:44] VITALS: BMI 27.4
[~2021-08-02 08:20] MED LIST changes: +LIDOCAINE 1% (10MG/ML) FOR IV START INTRADERMA PRN
[2021-08-02 08:46] VITALS: TEMP 97.8
[2021-08-02] MEDS ORDERED: LACTATED RINGERS 1,000 ML IV ONE (08:46)
[2021-08-02] MEDS ORDERED: PROPOFOL 10 MG/ML 20 ML VIAL IV ONE (09:47)
--- NOTE | 2021-08-02 10:13 | P.PCN ---
Date of Procedure: 08/02/21 Procedure(s) Performed: BRIEF HISTORY: Patient is a 61-year-old pleasant female scheduled for an elective colonoscopy as a part of surveillance of colon polyps is been noted on a recent colonoscopy in January 2021. She had 3 cm polyp in the ascending colon and the hepatic flexure that was removed and biopsies revealed tubular adenoma. She also has family history of colon cancer diagnosed in her father. PROCEDURE PERFORMED: Colonoscopy with snare polypectomy and argon plasma coagulation. PREOPERATIVE DIAGNOSIS: Follow-up large colon polyps noted on colonoscopy January 2020. IV sedation per Anesthesia. PROCEDURE: After informed consent was obtained, the patient, was brought into the endoscopy unit. IV sedation was administered by Anesthesia under continuous monitoring. Digital rectal examination was normal. Initially the Olympus CF-160 flexible video colonoscope was then inserted in the rectum, gradually advanced into the cecum without any difficulty. Careful examination was performed as the scope was gradually being withdrawn. Ileocecal valve and the appendiceal orifice were visualized and appeared normal. Prep was excellent. Mucosa of the cecum, appeared normal. Ascending colon there was a 2 cm linear residual polyp identified which was removed by snare polypectomy followed by argon plasma coag ablation.Rest of the ascending colon, transverse colon, descending colon, sigmoid colon, and rectum appeared normal.In the sigmoid colon 5 mm polyp seen s/p snare polypectomy. Retroflexion was performed in the rectum and no lesions were seen. The patient tolerated the procedure well. IMPRESSION: 2 cm linear residual polyp noted in the ascending colon status post snare gatito ypectomy followed by argon plasma coagulation No residual polyp noted in the hepatic flexure 5 mm; polyp status post polypectomy RECOMMENDATIONS: Findings of this examination were discussed with the patient well as his family. She was advised to follow with the biopsy results. She will have a repeat colonoscopy in one year..
[2021-08-02 10:36] VITALS: BP 121/72; PULSE 70; RESP 18
== END 2021-08-02 10:58 | disposition home or self-care (01) ==
LOC: ORWHC2ENDO 08:20
PROVIDERS: ATTEND Internal Medicine Gastroenterology
DX: Z12.11 Encounter for screening for malignant neoplasm of colon (principal); Z86.010 Personal history of colon polyps; D12.2 Benign neoplasm of ascending colon; D12.5 Benign neoplasm of sigmoid colon; Z80.0 Family history of malignant neoplasm of digestive organs; I65.29 Occlusion and stenosis of unspecified carotid artery; J44.9 Chronic obstructive pulmonary disease, unspecified; I10 Essential (primary) hypertension; E78.5 Hyperlipidemia, unspecified; Z86.73 Personal history of transient ischemic attack (TIA), and cerebral infarction without residual deficits; Z79.02 Long term (current) use of antithrombotics/antiplatelets; Z79.82 Long term (current) use of aspirin; Z79.899 Other long term (current) drug therapy; Z97.2 Presence of dental prosthetic device (complete) (partial); Z88.0 Allergy status to penicillin; Z88.9 Allergy status to unspecified drugs, medicaments and biological substances
CPT/HCPCS: 88305; 45385; J2704; 45388

== ENCOUNTER → 2021-09-06 | Outpatient (CLI) | payer MEDICARE, OTHER ==
--- NOTE | 2021-09-06 15:39 | US ---
EXAMINATION TYPE: US pelvic limited DATE OF EXAM: 09/06/2021 COMPARISON: NONE CLINICAL HISTORY: R10.32 LEFT LOWER QUADRANT PAIN. pain LLQ scanned LLQ within patient's area of pain. unable to visualize any discrete abnormality by ultrasound at this time IMPRESSION: As above
== END | disposition home or self-care (01) ==
LOC: RADUSWWP 15:09
PROVIDERS: ATTEND Family Medicine
DX: R10.32 Left lower quadrant pain (principal)
CPT/HCPCS: 76857

== ENCOUNTER → 2021-10-12 | Outpatient (CLI) | payer MEDICARE, OTHER ==
[2021-10-12 11:32] LABS: Basophils # (A) 0.11 X 10*3/uL (0.00-0.10); Eosinophils # (A) 0.27 X 10*3/uL (0.04-0.35); Eosinophils % (A) 2.6 %; HGB 14.4 g/dL (12.0-15.0); Immature Grans, Automated 0.3 %; Lymphocytes # (A) 2.34 X 10*3/uL (0.90-5.00); Lymphocytes % (A) 22.3 %; MCH 29.6 pg (27.0-32.0); MCHC 32.7 g/dL (32.0-37.0); MCV 90.3 fL (80.0-97.0); Mean Platelet Volume 10.4 fL (9.5-12.2); Monocytes # (A) 0.76 X 10*3/uL (0.20-1.00); Monocytes % (A) 7.3 %; NRBC Per 100 WBC 0 /100 WBCS (0.0-0.0); Neutrophils # (A) 6.97 X 10*3/uL (1.80-7.70); Neutrophils % (A) 66.5 %; Platelet Count 364 X 10*3/uL (140-440); RBC 4.87 X 10*6/uL (4.10-5.20); RDW 12.6 % (11.5-14.5); WBC 10.48 X 10*3/uL (4.50-10.00)
[2021-10-12 16:31] LABS: African American GFR (CKD) 70.5 (60.0-200.0); Albumin 4.3 g/dL (3.8-4.9); Albumin/Globulin Ratio 1.68 (1.60-3.17); Anion Gap 10.1 mmol/L (10.00-18.00); BUN/Creat Ratio 13.01 Ratio (12.00-20.00); Calcium 9.4 mg/dL (8.7-10.3); Carbon Dioxide 26.1 mmol/L (20.0-27.5); Globulin 2.5 g/dL (1.6-3.3); Luteinizing Hormone 39.7 mIU/mL; Non-African American GFR(CKD) 60.8 (60.0-200.0); Potassium 4.3 mmol/L (3.5-5.5); Total Bilirubin 0.7 mg/dL (0.30-1.20); Total Protein 6.8 g/dL (6.2-8.2)
== END | disposition home or self-care (01) ==
LOC: LABWHC1 08:45
PROVIDERS: ATTEND Nurse Practitioner Family
DX: L90.5 Scar conditions and fibrosis of skin (principal); L70.0 Acne vulgaris; L73.8 Other specified follicular disorders; L53.8 Other specified erythematous conditions; L21.8 Other seborrheic dermatitis; L91.8 Other hypertrophic disorders of the skin
CPT/HCPCS: 36415; 80053; 82465; 83001; 83002; 84478; 85025

== ENCOUNTER 2021-12-15 08:46 | Inpatient (IN) | payer MEDICARE, OTHER ==
[2021-12-15] MEDS ORDERED: SODIUM CHLORIDE 0.9% 500 ML 500 ML IV ONE (08:59)
--- NOTE | 2021-12-15 09:06 | ED ---
General Adult HPI - General Chief complaint: Skin/Abscess/Foreign Body Stated complaint: Facial Swelling Time Seen by Provider: 12/15/21 08:52 Source: patient, RN notes reviewed Mode of arrival: ambulatory Limitations: no limitations - History of Present Illness Initial comments: 61-year-old female presents emergency Department with chief complaint right- sided facial pain, swelling. Patient states started last 1-2 days. Patient states it significantly increased overnight in which she's had increasing pain. Patient states that she's got, no blurred vision she states her right eye is tearing secondary to swelling she states she has difficulty breathing her right nostril. any difficulty swallowing no dental pain. patient states she's never had an infection this past she is currently on clindamycin. patient denies neck pain neck stiffness no headache. - Related Data Home Medications Medication Instructions Recorded Confirmed traMADol HCl [Ultram] 100 mg PO BID 01/22/16 07/31/21 Acetaminophen [Tylenol Extra 500 - 1,000 mg PO DIRECTED PRN 01/01/21 07/31/21 Strength] Aspirin/Acetaminophen/Caffeine 1 each PO DIRECTED PRN 01/01/21 07/31/21 [Excedrin Migraine Caplet] Cyanocobalamin (Vitamin B-12) 1,000 mcg PO Q7D 01/01/21 07/31/21 [Vitamin B-12] Previous Rx's Medication Instructions Recorded Atorvastatin [Lipitor] 40 mg PO HS #30 tab 11/09/17 Clopidogrel Bisulfate [Plavix] 75 mg PO DAILY #30 tab 01/28/18 Metoprolol Tartrate [Lopressor] 25 mg PO BID #0 05/22/18 Allergies Allergy/AdvReac Type Severity Reaction Status Date / Time amoxicillin Allergy Dyspnea Verified 12/15/21 08:51 nickel AdvReac Rash/Hives Verified 12/15/21 08:51 Penicillins AdvReac Dyspnea Verified 12/15/21 08:51 Review of Systems ROS Statement: Those systems with pertinent positive or pertinent negative responses have been documented in the HPI. ROS Other: All systems not noted in ROS Statement are negative. Past Medical History Past Medical History: COPD, CVA/TIA, Fibromyalgia, Hyperlipidemia, Vascular Diso rder Additional Past Medical History / Comment(s): 11/04/17 CVA, syncope and slurred speech which has resolved, hx.of L carotid 70% stenosed,Reflex Sympathetic Dystrophy L hand, benign colon polyps. July of 2021 dx. with pneumonia. History of Any Multi-Drug Resistant Organisms: None Reported Past Surgical History: Appendectomy, Back Surgery, Breast Surgery, Cholecystectomy, Tubal Ligation Additional Past Surgical History / Comment(s): 12/29/17 L caratid endartectomy at [facility], LEFT BREAST BX/LUMPECTOMY BENIGN, COLONOSCOPIES WITH BENIGN POLYPECTOMIES, NERVE BLOCK TO NECK X3, LOW BACK SURGERY, NEURO STIMULATOR IN LOW BACK NOT CONNECTED TO WIRES. Past Anesthesia/Blood Transfusion Reactions: No Reported Reaction Past Psychological History: No Psychological Hx Reported Smoking Status: Former smoker Past Alcohol Use History: None Reported Past Drug Use History: None Reported - Past Family History Father Family Medical History: Cancer Additional Family Medical History / Comment(s): COLON CANCER. Father is . Mother Family Medical History: Cancer Additional Family Medical History / Comment(s): Mother is . Liver cancer . General Exam Limitations: no limitations General appearance: alert, in no apparent distress Head exam: Present: atraumatic, normocephalic, normal inspection Eye exam: Present: normal appearance, PERRL, EOMI, periorbital swelling (Right), periorbital tenderness, other (No pain with ocular movements, no entrapment). Absent: scleral icterus, conjunctival injection ENT exam: Present: normal oropharynx, mucous membranes moist, other (Significant right-sided facial swelling, tenderness and erythema.). Absent: normal exam Neck exam: Present: normal inspection, full ROM. Absent: tenderness, meningismus, lymphadenopathy Respiratory exam: Present: normal lung sounds bilaterally. Absent: respiratory distress, wheezes, rales, rhonchi, stridor Cardiovascular Exam: Present: regular rate, normal rhythm, normal heart sounds. Absent: systolic murmur, diastolic murmur, rubs, gallop, clicks Course Vital Signs 12/15/21 08:47 Temperature 98.1 F Pulse Rate 68 Respiratory 18 Rate Blood Pressure 141/92 O2 Sat by Pulse 98 Oximetry Medical Decision Making - Medical Decision Making Patient has extensive cellulitis, periorbital cellulitis on CT no abscess. Patient does have mild leukocytosis. Patient's symptoms have been progressive and very progressive in the last 24 hours. Patient will be admitted for IV antibiotics - Lab Data Result diagrams: 12/15/21 09:05 12/15/21 09:10 Lab Results 12/15/21 12/15/21 12/15/21 Range/Units 09:00 09:05 09:10 WBC 11.8 H (3.8-10.6) k/uL RBC 4.49 (3.80-5.40) m/uL Hgb 13.3 (11.4-16.0) gm/dL Hct 40.7 (34.0-46.0) % MCV 90.7 (80.0-100.0) fL MCH 29.7 (25.0-35.0) pg MCHC 32.7 (31.0-37.0) g/dL RDW 12.7 (11.5-15.5) % Plt Count 359 (150-450) k/uL MPV 7.4 Neutrophils % 72 % Lymphocytes % 18 % Monocytes % 7 % Eosinophils % 1 % Basophils % 0 % Neutrophils # 8.4 H (1.3-7.7) k/uL Lymphocytes # 2.2 (1.0-4.8) k/uL Monocytes # 0.8 (0-1.0) k/uL Eosinophils # 0.1 (0-0.7) k/uL Basophils # 0.1 (0-0.2) k/uL Sodium 137 (137-145) mmol/L Potassium 4.5 (3.5-5.1) mmol/L Chloride 99 (98-107) mmol/L Carbon Dioxide 26 (22-30) mmol/L Anion Gap 12 mmol/L BUN 14 (7-17) mg/dL Creatinine 1.00 (0.52-1.04) mg/dL Est GFR (CKD-EPI)AfAm 71 (>60 ml/min/1.73 sqM) Est GFR (CKD-EPI)NonAf 61 (>60 ml/min/1.73 sqM) Glucose 138 H (74-99) mg/dL Plasma Lactic Acid Anthony 1.8 (0.7-2.0) mmol/L Calcium 9.1 (8.4-10.2) mg/dL Total Bilirubin 1.1 (0.2-1.3) mg/dL AST 32 (14-36) U/L ALT 18 (4-34) U/L Alkaline Phosphatase 101 (38-126) U/L Total Protein 8.1 (6.3-8.2) g/dL Albumin 4.5 (3.5-5.0) g/dL Disposition Clinical Impression: Facial cellulitis, Preseptal cellulitis of right eye, Failure of outpatient treatment Disposition: ADMITTED IP TO THIS HOSP Condition: Fair Referrals: Varun Little DO [Primary Care Provider] - 1-2 days Time of Disposition: 10:44
[2021-12-15 09:26] LABS: Basophils # (A) 0.1 k/uL (0-0.2); Basophils % (A) 0 %; Eosinophils # (A) 0.1 k/uL (0-0.7); Eosinophils % (A) 1 %; HCT 40.7 % (34.0-46.0); HGB 13.3 gm/dL (11.4-16.0); Lymphocytes # (A) 2.2 k/uL (1.0-4.8); Lymphocytes % (A) 18 %; MCH 29.7 pg (25.0-35.0); MCHC 32.7 g/dL (31.0-37.0); MCV 90.7 fL (80.0-100.0); Mean Platelet Volume 7.4; Monocytes # (A) 0.8 k/uL (0-1.0); Monocytes % (A) 7 %; Neutrophils # (A) 8.4 k/uL (1.3-7.7); Neutrophils % (A) 72 %; Platelet Count 359 k/uL (150-450); RBC 4.49 m/uL (3.80-5.40); RDW 12.7 % (11.5-15.5); WBC 11.8 k/uL (3.8-10.6)
[2021-12-15] MEDS ORDERED: KETOROLAC 15 MG/ML 1 ML VIAL IVP STA (09:32)
[2021-12-15 09:42] LABS: Albumin 4.5 g/dL (3.5-5.0); Calcium 9.1 mg/dL (8.4-10.2); Total Bilirubin 1.1 mg/dL (0.2-1.3); Total Protein 8.1 g/dL (6.3-8.2)
[2021-12-15 09:51] LABS: Potassium 4.5 mmol/L (3.5-5.1)
--- NOTE | 2021-12-15 10:33 | CT ---
EXAMINATION TYPE: CT facial bones w con DATE OF EXAM: 12/15/2021 COMPARISON: Brain 05/06/2018 HISTORY: 61-year-old female pain, Rt facial swelling. Redness and swelling extends to the right eye. TECHNIQUE: Contiguous axial scanning of the facial bones performed with IV Contrast, patient injected with 100 mL of Isovue 300. Coronal reconstructions performed. CT DLP: 436.8 mGycm Automated exposure control for dose reduction was used. FINDINGS: No facial bone fractures seen. Mackenzie a nasal septum. Paranasal sinuses are pneumatized. Mastoid air cells are clear. Stable focal area of encephalomalacia lateral right frontal lobe compared to 2019 finding suggests an old area of infarct. There is right periorbital soft tissue thickening and edema. This extends over the right zygoma, righ t side of the nose, maxillary region, and down to the right jaw. Corresponding skin thickening. No di screte abscess is identified. The globes appear symmetric and intact. Superior ophthalmic veins are patent. No intraorbital retrobu lbar bulbar abnormality is seen. Some thickening of a fat lobule, possible fat necrosis measuring 1.8 cm overlying the right frontal p rocess of the maxilla. The patient is edentulous. The parotid and submandibular glands appear satisfactory. IMPRESSION: EXTENSIVE CELLULITIS OVERLYING THE RIGHT SIDE OF THE FACE AND WITH PROBABLE PRESEPTAL CELLULITIS. NO POST SEPTAL INVOLVEMENT OR ABSCESS FORMATION IS IDENTIFIED. NO SOURCE FROM THE PARANASAL SINUSES IS I DENTIFIED. THE PATIENT IS EDENTULOUS.
[2021-12-15] MEDS ORDERED: VANCOMYCIN IV PER PHARMACY 1 EACH MISC MISCELLANE PRN (10:45)
[2021-12-15] MEDS ORDERED: ACETAMINOPHEN TAB 325 MG TAB PO PRN (10:56)
[2021-12-15] MEDS ORDERED: NALOXONE 0.4 MG/ML 1 ML VIAL IV PRN (10:56)
[2021-12-15] MEDS ORDERED: ONDANSETRON 4 MG/2 ML VIAL IVP PRN (10:56)
[2021-12-15] MEDS: SODIUM CHLORIDE 0.9% 1,000 ML IV SCH ×2 (11:09→17:58)
[2021-12-15] MEDS ORDERED: VANCOMYCIN 1,250 MG in SODIUM CHLORIDE 0.9% 250 ML IVPB ONE (11:30)
[2021-12-15] MEDS: KETOROLAC 15 MG/ML 1 ML VIAL IVP PRN ×2 (15:46→22:07)
--- NOTE | 2021-12-15 23:07 | P.HPIM ---
History of Present Illness H&P Date: 12/15/21 Chief Complaint: Facial swelling Patient is a 61-year-old female with a known history of fibromyalgia, history of CVA/TIA, COPD, hyperlipidemia, left carotid 70% stenosis status post endarterectomy, reflex sympathetic dystrophy left hand and former smoker presents to ER with complaints of right-sided facial swelling, pain and redness worsening for the past 2 days. Patient says that he started on the right side of the nose and started spreading and also having swelling around the eye. Denied any loss of vision. No complaints of abdominal pain. Denied any complaints of fever or chills. No cough or sputum production. Denied any recent tooth infection. No headache or dizziness or lightheadedness. Facial CT showed extensive cellulitis overlying the right side of the face and with probable receptacle cellulitis. No posterior septal involvement or abscess formation is identified. No psoas from the paranasal sinuses is identified. Patient is edentulous. Laboratory data showed WBC 11.8 hemoglobin 13.3 and platelets 359 Sodium 137 potassium 4.5 chloride 99 bicarb is 26 BUN 14 and creatinine 1.0 and blood sugar 138 Liver enzymes not elevated. Review of Systems Constitutional: Patient denies any fever or chills . No generalized weakness or weight loss. Abdomen: Patient denied nausea vomiting and diarrhea and abdominal pain. Cardiovascular: Patient denies any chest pain or short of breath no palpitations. Respiratory: patient denied any cough is from production. No shortness of breath Neurologic: Patient denied any numbness or tingling headache. Musculoskeletal: Patient denies any complaints of joint swelling or deformity. Skin: Right-sided facial swelling Psychiatric: Negative Endocrine: No heat or cold intolerance. No recent weight gain. Genitourinary: No dysuria or hematuria. All other 14 point ROS negative except the above Past Medical History Past Medical History: COPD, CVA/TIA, Fibromyalgia, Hyperlipidemia, Vascular Disorder Additional Past Medical History / Comment(s): 11/04/17 CVA, syncope and slurred speech which has resolved, hx.of L carotid 70% stenosed,Reflex Sympathetic Dystrophy L hand, benign colon polyps. July of 2021 dx. with pneumonia. History of Any Multi-Drug Resistant Organisms: None Reported Past Surgical History: Appendectomy, Back Surgery, Breast Surgery, Cholecystectomy, Tubal Ligation Additional Past Surgical History / Comment(s): 12/29/17 L caratid endartectomy at [facility], LEFT BREAST BX/LUMPECTOMY BENIGN, COLONOSCOPIES WITH BENIGN POLYPECTOMIES, NERVE BLOCK TO NECK X3, LOW BACK SURGERY, NEURO STIMULATOR IN LOW BACK NOT CONNECTED TO WIRES. Past Anesthesia/Blood Transfusion Reactions: No Reported Reaction Smoking Status: Former smoker - Past Family History Father Family Medical History: Cancer Additional Family Medical History / Comment(s): COLON CANCER. Father is d. Mother Family Medical History: Cancer Additional Family Medical History / Comment(s): Mother is . Liver cancer. Medications and Allergies Home Medications Medication Instructions Recorded Confirmed Type traMADol HCl [Ultram] 100 mg PO BID 01/22/16 12/15/21 History Atorvastatin [Lipitor] 40 mg PO HS #30 tab 11/09/17 12/15/21 Rx Clopidogrel Bisulfate [Plavix] 75 mg PO DAILY #30 tab 01/28/18 12/15/21 Rx Metoprolol Tartrate [Lopressor] 25 mg PO BID #0 05/22/18 12/15/21 Rx Albuterol Inhaler [Ventolin Hfa 2 puff INHALATION RT-Q6H PRN 12/15/21 12/15/21 History Inhaler] Estrogens, Conjugated Cream 0.5 gm VAGINAL DIRECTED 12/15/21 12/15/21 History [Premarin Vaginal Cream] Famotidine [Pepcid] 20 mg PO BID 12/15/21 12/15/21 History Fluconazole 150 mg PO DAILY PRN 12/15/21 12/15/21 History Fluocinolone/Shower Cap 1 applic TOPICAL BID PRN 12/15/21 12/15/21 History [Fluocinolone 0.01% Scalp Oil] ISOtretinoin [Isotretinoin] 20 mg PO DAILY 12/15/21 12/15/21 History Mupirocin 2% Oint [Bactroban 2% 1 applic TOPICAL BID 12/15/21 12/15/21 History Oint] clindamycin HCL 300 mg PO Q8H 12/15/21 12/15/21 History traMADol HCL 100 mg PO HS PRN 12/15/21 12/15/21 History Allergies Allergy/AdvReac Type Severity Reaction Status Date / Time amoxicillin Allergy Dyspnea Verified 12/15/21 12:24 nickel AdvReac Rash/Hives Verified 12/15/21 12:24 Penicillins AdvReac Dyspnea Verified 12/15/21 12:24 Physical Exam Vitals: Vital Signs Temp Pulse Pulse Pulse Pulse Resp BP 12/15/21 20:00 98.2 F 74 18 12/15/21 18:00 98.7 F 89 16 12/15/21 15:48 98.6 F 86 16 12/15/21 08:47 98.1 F 68 18 141/92 BP Pulse Ox 12/15/21 20:00 105/66 96 12/15/21 18:00 135/69 95 12/15/21 15:48 166/79 98 12/15/21 08:47 98 Intake and Output 12/15/21 12/15/21 12/16/21 14:59 22:59 06:59 Intake Total 120 Balance 120 Intake: Oral 120 Other: # Voids 2 Weight 69.4 kg PHYSICAL EXAMINATION: Patient is lying in the bed comfortably, no acute distress, awake alert and oriented.. HEENT: Normocephalic. Neck is supple. Pupils reactive. Nostrils clear. Oral cavity is moist. Extensive redness and swelling over the right side of the face and PE after swelling mild to moderate tenderness. No drainage noted. Neck reveals no JVD, carotid bruits, or thyromegaly. CHEST EXAMINATION: Trachea is central. Symmetrical expansion. Lung garland clear to auscultation and percussion. CARDIAC: Normal S1, S2 with no gallops. No murmurs ABDOMEN: Soft. Bowel sounds normal. No organomegaly. No abdominal bruits. Extremities: reveal no edema. No clubbing or cyanosis Neurologically awake, alert, oriented x3 with well-coordinated movements. No focal deficits noted Skin: No rash or skin lesions. Psychiatric: Coperative. Nonsuicidal Musculoskeletal: No joint swelling or deformity. Normal range of motion. Results CBC & Chem 7: 12/16/21 05:27 12/16/21 05:27 Labs: Abnormal Lab Results - Last 24 Hours (Table) 12/15/21 12/15/21 Range/Units 09:05 09:10 WBC 11.8 H (3.8-10.6) k/uL Neutrophils # 8.4 H (1.3-7.7) k/uL Glucose 138 H (74-99) mg/dL Thrombosis Risk Factor Assmnt - DVT/VTE Prophylaxis DVT/VTE Prophylaxis: Pharmacologic Prophylaxis ordered - Choose All That Apply Any of the Below Risk Factors Present?: Yes Each Factor Represents 1 point: Abnormal pulmonary function (COPD) Other Risk Factors: Yes Each Risk Factor Represents 2 Points: Age 61-74 years Thrombosis Risk Factor Assessment Total Risk Factor Score: 3 Thrombosis Risk Factor Assessment Level: Moderate Risk Assessment and Plan Assessment: Extensive cellulitis of the night side of the face and preseptal cellulitis. Hyperlipidemia History of left carotid endarterectomy Fibromyalgia History of CVA/TIA COPD not in exacerbation Reflex sympathetic dystrophy of the left hand Prior history of smoking DVT prophylaxis with heparin subcu Plan: Patient will be continued on antibiotics in the form of vancomycin. IV hydra tion. One dose of ceftriaxone was given the ER. Follow blood cultures. No abscess noted on the CT face. Continue with home medications including Plavix and atorvastatin and pain management with [place] 5. GI and DVT prophylaxis and follow closely. Infectious disease service will be consulted for further evaluation. Time with Patient: Greater than 30
[2021-12-15] MEDS: VANCOMYCIN 1,250 MG in SODIUM CHLORIDE 0.9% 250 ML IVPB SCH (23:53)
[2021-12-16] MEDS ORDERED: traMADol 50 MG TAB PO PRN (01:11)
[2021-12-16] MEDS: HYDROcodone/APAP 5-325MG 1 EACH TAB PO PRN ×4 (02:42→20:30)
[2021-12-16 06:44] LABS: African American GFR (CKD) 85 (>60 ml/min/1.73 sqM); Anion Gap 10 mmol/L; Blood Urea Nitrogen 11 mg/dL (7-17); Calcium 8.3 mg/dL (8.4-10.2); Carbon Dioxide 21 mmol/L (22-30); Chloride 108 mmol/L (98-107); Glucose 114 mg/dL (74-99); Non-African American GFR(CKD) 74 (>60 ml/min/1.73 sqM); Sodium 139 mmol/L (137-145)
[2021-12-16] MEDS: HEPARIN SODIUM,PORCINE/PF 5,000 UNIT/0.5 ML SYRINGE SQ SCH ×2 (08:27→16:37)
[2021-12-16] MEDS: CLOPIDOGREL 75 MG TAB PO SCH (08:27)
[2021-12-16] MEDS: FAMOTIDINE 20 MG TAB PO SCH ×2 (08:27→20:31)
[2021-12-16] MEDS: METOPROLOL TARTRATE 25 MG TAB PO SCH ×2 (08:28→20:31)
[2021-12-16] MEDS: traMADol 50 MG TAB PO SCH ×2 (08:28→16:36)
[2021-12-16 09:30] LABS: Basophils # (A) 0.06 X 10*3/uL (0.00-0.10); Basophils % (A) 0.5 %; Eosinophils # (A) 0.14 X 10*3/uL (0.04-0.35); Eosinophils % (A) 1.1 %; HCT 35.1 % (37.2-46.3); HGB 11.4 g/dL (12.0-15.0); Immature Grans, Automated 0.5 %; Lymphocytes # (A) 1.65 X 10*3/uL (0.90-5.00); Lymphocytes % (A) 13.1 %; MCH 30.1 pg (27.0-32.0); MCHC 32.5 g/dL (32.0-37.0); MCV 92.6 fL (80.0-97.0); Mean Platelet Volume 10.5 fL (9.5-12.2); Monocytes # (A) 0.96 X 10*3/uL (0.20-1.00); Monocytes % (A) 7.6 %; NRBC Per 100 WBC 0 /100 WBCS (0.0-0.0); Neutrophils # (A) 9.69 X 10*3/uL (1.80-7.70); Neutrophils % (A) 77.2 %; Platelet Count 307 X 10*3/uL (140-440); RBC 3.79 X 10*6/uL (4.10-5.20); RDW 12.9 % (11.5-14.5); WBC 12.56 X 10*3/uL (4.50-10.00)
[2021-12-16] MEDS: VANCOMYCIN 1,250 MG in SODIUM CHLORIDE 0.9% 250 ML IVPB SCH (16:37)
[2021-12-16] MEDS: SODIUM CHLORIDE 0.9% 1,000 ML IV SCH (16:37)
[2021-12-16] MEDS: ATORVASTATIN 40 MG TAB PO SCH (20:31)
--- NOTE | 2021-12-16 22:55 | P.CONS ---
History of Present Illness - Reason for Consult Consult date: 12/16/21 Facial cellulitis Requesting physician: Sis Bell - Chief Complaint Right-sided facial swelling and pain x few days - History of Present Illness Patient is a 61-year-old female with a past medical history significant for fibromyalgia CVA TIA COPD hypertension hyperlipidemia presenting to the ER yesterday morning for evaluation of right-sided facial pain and swelling redness that has been getting worse for 2 days before presentation to the hospital patient denies having any history of any trauma she will complaining of diffuse swelling redness of the right side of the face area and this morning she noticed to have some drainage on the medial aspect of the lesion patient describing the pain to be throbbing intensity is almost 10 out of 10 in severity when she presented to the hospital however has slightly decreased with the pain medication patient did have some chills on presentation to the hospital patient did have normal temperature white count was up to 11.8 with a left shift creatinine has been normal blood cultures obtained which are curre ntly pending patient was empirically started on vancomycin infectious he was consulted for further management of antibiotic therapy patient did have a CT of the face extensive cellulitis overlying the right side of the face and probable preseptal on evidence of any septal cellulitis Review of Systems Positive point has been mentioned in the HPI rest of the systems are negative Past Medical History Past Medical History: COPD, CVA/TIA, Fibromyalgia, Hyperlipidemia, Vascular Disorder Additional Past Medical History / Comment(s): 11/04/17 CVA, syncope and slurred speech which has resolved, hx.of L carotid 70% stenosed,Reflex Sympathetic Dystrophy L hand, benign colon polyps. July of 2021 dx. with pneumonia. History of Any Multi-Drug Resistant Organisms: None Reported Past Surgical History: Appendectomy, Back Surgery, Breast Surgery, Cholecystectomy, Tubal Ligation Additional Past Surgical History / Comment(s): 12/29/17 L caratid endartectomy at [facility], LEFT BREAST BX/LUMPECTOMY BENIGN, COLONOSCOPIES WITH BENIGN POLYPECTOMIES, NERVE BLOCK TO NECK X3, LOW BACK SURGERY, NEURO STIMULATOR IN LOW BACK NOT CONNECTED TO WIRES. Past Anesthesia/Blood Transfusion Reactions: No Reported Reaction Smoking Status: Former smoker - Past Family History Father Family Medical History: Cancer Additional Family Medical History / Comment(s): COLON CANCER. Father is . Mother Family Medical History: Cancer Additional Family Medical History / Comment(s): Mother is . Liver cancer. Medications and Allergies Home Medications Medication Instructions Recorded Confirmed Type traMADol HCl [Ultram] 100 mg PO BID 01/22/16 12/15/21 History Atorvastatin [Lipitor] 40 mg PO HS #30 tab 11/09/17 12/15/21 Rx Clopidogrel Bisulfate [Plavix] 75 mg PO DAILY #30 tab 01/28/18 12/15/21 Rx Metoprolol Tartrate [Lopressor] 25 mg PO BID #0 05/22/18 12/15/21 Rx Albuterol Inhaler [Ventolin Hfa 2 puff INHALATION RT-Q6H PRN 12/15/21 12/15/21 History Inhaler] Estrogens, Conjugated Cream 0.5 gm VAGINAL DIRECTED 12/15/21 12/15/21 History [Premarin Vaginal Cream] Famotidine [Pepcid] 20 mg PO BID 12/15/21 12/15/21 History Fluconazole 150 mg PO DAILY PRN 12/15/21 12/15/21 History Fluocinolone/Shower Cap 1 applic TOPICAL BID PRN 12/15/21 12/15/21 History [Fluocinolone 0.01% Scalp Oil] ISOtretinoin [Isotretinoin] 20 mg PO DAILY 12/15/21 12/15/21 History Mupirocin 2% Oint [Bactroban 2% 1 applic TOPICAL BID 12/15/21 12/15/21 History Oint] traMADol HCL 100 mg PO HS PRN 12/15/21 12/15/21 History Cephalexin [Keflex] 500 mg PO Q6HR 10 Days #40 cap 12/18/21 Rx HYDROcodone/APAP 5-325MG [[place] 1 each PO Q4HR PRN #9 tab 12/18/21 Rx 5-325] Sulfamethox-Tmp 800-160Mg [Bactrim 1 tab PO Q12HR 10 Days #20 tab 12/18/21 Rx DS 800-160 mg] Allergies Allergy/AdvReac Type Severity Reaction Status Date / Time amoxicillin Allergy Dyspnea Verified 12/15/21 12:24 nickel AdvReac Rash/Hives Verified 12/15/21 12:24 Penicillins AdvReac Dyspnea Verified 12/15/21 12:24 Physical Exam Vitals: Vital Signs Temp Pulse Pulse Pulse Resp BP Pulse Ox 12/16/21 08:20 97.8 F 78 115/76 96 12/16/21 05:00 98.4 F 71 16 104/58 96 12/15/21 20:00 98.2 F 74 18 105/66 96 12/15/21 18:00 98.7 F 89 16 135/69 95 12/15/21 15:48 98.6 F 86 16 166/79 98 Intake and Output 12/15/21 12/16/21 12/16/21 22:59 06:59 14:59 Intake Total 240 1090 Balance 240 1090 Intake: Intake, IV Titration 850 Amount Sodium Chloride 0.9% 1, 600 000 ml @ 75 mls/hr IV . [id number] [facility] Rx#:[id number] Vancomycin 1,250 mg In 250 Sodium Chloride 0.9% 250 ml @ 125 mls/hr IVPB Q16H [facility] Rx#:[id number] Oral 240 240 Other: # Voids 2 1 GENERAL DESCRIPTION: Middle-aged female lying in bed, no distress. No tachypnea or accessory muscle of respiration use. HEENT: Shows Pallor , no scleral icterus. Oral mucous membrane is dry. No pharyngeal erythema or thrush, right-sided facial swelling redness induration and tenderness NECK: Trachea central, no thyromegaly. LUNGS: Unlabored breathing. Clear to auscultation anteriorly. No wheeze or crackle. HEART: S1, S2, regular rate and rhythm. No loud murmur ABDOMEN: Soft, no tenderness , guarding or rigidity, no organomegaly EXTREMITIES: No edema of feet. SKIN: No rash, no masses palpable. NEUROLOGICAL: The patient is awake, alert, oriented x3, mood and affect normal. Results CBC & Chem 7: 12/16/21 05:27 12/18/21 03:32 Labs: Abnormal Lab Results - Last 24 Hours (Table) 12/16/21 12/16/21 Range/Units 05:27 05:27 WBC 12.56 H (4.50-10.00) X 10*3/uL RBC 3.79 L (4.10-5.20) X 10*6/uL Hgb 11.4 L (12.0-15.0) g/dL Hct 35.1 L (37.2-46.3) % Immature Gran # 0.06 H (0.00-0.04) X 10*3/uL Neutrophils # 9.69 H (1.80-7.70) X 10*3/uL Chloride 108 H (98-107) mmol/L Carbon Dioxide 21 L (22-30) mmol/L Glucose 114 H (74-99) mg/dL Calcium 8.3 L (8.4-10.2) mg/dL Assessment and Plan (1) Facial cellulitis Current Visit: Yes Status: Acute Code(s): L03.211 - CELLULITIS OF FACE SNOMED Code(s): 822144760 Plan: 1patient with right-sided facial abscess and cellulitis not seen on the CT however the patient did have a spontaneous drainage of the abscess this morning which has been culture likely from gram-positive skin ry such as staph and strep less likely gram-negative infection. 2warm compress to the right side of the face to further liquefy the abscess and it did drain out. 3vancomycin pharmacy to dose we will monitor kidney function closely We will follow on clinical condition and cultures to further adjust medication if needed Thank you for this consultation will follow this patient along with you Time with Patient: Greater than 30
[2021-12-17] MEDS: HEPARIN SODIUM,PORCINE/PF 5,000 UNIT/0.5 ML SYRINGE SQ SCH ×4 (01:24→23:47)
[2021-12-17] MEDS: HYDROcodone/APAP 5-325MG 1 EACH TAB PO PRN (05:02)
[2021-12-17] MEDS: SODIUM CHLORIDE 0.9% 1,000 ML IV SCH ×2 (05:02→21:28)
[2021-12-17] MEDS: VANCOMYCIN 1,250 MG in SODIUM CHLORIDE 0.9% 250 ML IVPB SCH ×2 (05:02→16:20)
[2021-12-17] MEDS: CLOPIDOGREL 75 MG TAB PO SCH (08:09)
[2021-12-17] MEDS: METOPROLOL TARTRATE 25 MG TAB PO SCH ×2 (08:09→21:27)
[2021-12-17] MEDS: FAMOTIDINE 20 MG TAB PO SCH ×2 (08:09→21:27)
[2021-12-17] MEDS: traMADol 50 MG TAB PO SCH ×2 (08:09→16:20)
[2021-12-17 09:23] LABS: African American GFR (CKD) 83.5 (60.0-200.0)
--- NOTE | 2021-12-17 11:32 | P.PN ---
Subjective Progress Note Date: 12/16/21 Patient is a 61-year-old female with a known history of fibromyalgia, history of CVA/TIA, COPD, hyperlipidemia, left carotid 70% stenosis status post endarterectomy, reflex sympathetic dystrophy left hand and former smoker presents to ER with complaints of right-sided facial swelling, pain and redness worsening for the past 2 days. Patient says that he started on the right side of the nose and started spreading and also having swelling around the eye. Denied any loss of vision. No complaints of abdominal pain. Denied any complaints of fever or chills. No cough or sputum production. Denied any recent tooth infection. No headache or dizziness or lightheadedness. Facial CT showed extensive cellulitis overlying the right side of the face and with probable receptacle cellulitis. No posterior septal involvement or abscess formation is identified. No psoas from the paranasal sinuses is identified. Patient is edentulous. Laboratory data showed WBC 11.8 hemoglobin 13.3 and platelets 359 Sodium 137 potassium 4.5 chloride 99 bicarb is 26 BUN 14 and creatinine 1.0 and blood sugar 138 Liver enzymes not elevated. 12/16/2021 Patient is currently resting in bed. Awake alert oriented 3. Patient has been afebrile. Patient was noted to have drainage from the facial abscess and cellulitis. Patient is being continued on vancomycin and follow cultures. ID was consulted. Otherwise patient denied any chest pain or shortness of breath. No nausea vomiting or abdominal pain or diarrhea. No cough or sputum production. Laboratory data showed WBC 12.5 hemoglobin 11.4 and platelets 307 Sodium 1:30 potassium 4.0 chloride 109 bicarb is 21 BUN 11 and creatinine 0.86 and blood sugar is 114calcium 8.3 Current medications reviewed Objective - Vital Signs Vital signs: Vital Signs Temp 99.4 F 12/16/21 21:00 Pulse 73 12/16/21 21:00 Resp 18 12/16/21 21:00 BP 161/91 12/16/21 21:00 Pulse Ox 95 12/16/21 21:00 FiO2 Intake & Output 12/16/21 12/16/21 12/17/21 06:59 18:59 06:59 Intake Total 1330 900 Balance 1330 900 Intake: Intake, IV Titration 850 900 Amount Sodium Chloride 0.9% 1, 600 900 000 ml @ 75 mls/hr IV . [id number] [facility] Rx#:[id number] Vancomycin 1,250 mg In 250 Sodium Chloride 0.9% 250 ml @ 125 mls/hr IVPB Q16H [facility] Rx#:[id number] Oral 480 Other: # Voids 1 - Exam PHYSICAL EXAMINATION: Patient is lying in the bed comfortably, no acute distress, awake alert and oriented.. HEENT: Normocephalic. Neck is supple. Pupils reactive. Nostrils clear. Oral cavi ty is moist. Extensive redness and swelling over the right side of the face and PE after swelling mild to moderate tenderness. Purulent drainage noted from the abscess site care.. Neck reveals no JVD, carotid bruits, or thyromegaly. CHEST EXAMINATION: Trachea is central. Symmetrical expansion. Lung garland clear to auscultation and percussion. CARDIAC: Normal S1, S2 with no gallops. No murmurs ABDOMEN: Soft. Bowel sounds normal. No organomegaly. No abdominal bruits. Extremities: reveal no edema. No clubbing or cyanosis Neurologically awake, alert, oriented x3 with well-coordinated movements. No focal deficits noted Skin: No rash or skin lesions. Psychiatric: Coperative. Nonsuicidal Musculoskeletal: No joint swelling or deformity. Normal range of motion. - Labs CBC & Chem 7: 12/16/21 05:27 12/17/21 04:30 Labs: Abnormal Lab Results - Last 24 Hours (Table) 12/16/21 12/16/21 Range/Units 05:27 05:27 WBC 12.56 H (4.50-10.00) X 10*3/uL RBC 3.79 L (4.10-5.20) X 10*6/uL Hgb 11.4 L (12.0-15.0) g/dL Hct 35.1 L (37.2-46.3) % Immature Gran # 0.06 H (0.00-0.04) X 10*3/uL Neutrophils # 9.69 H (1.80-7.70) X 10*3/uL Chloride 108 H (98-107) mmol/L Carbon Dioxide 21 L (22-30) mmol/L Glucose 114 H (74-99) mg/dL Calcium 8.3 L (8.4-10.2) mg/dL Microbiology - Last 24 Hours (Table) 12/16/21 11:00 Anaerobic Culture - Preliminary Face 12/16/21 11:00 Wound Culture - Preliminary Face 12/15/21 09:15 Blood Culture - Preliminary Blood No Growth after 24 hours 12/15/21 09:00 Blood Culture - Preliminary Blood No Growth after 24 hours Assessment and Plan Assessment: Extensive cellulitis of the night side of the face and preseptal cellulitis. And superficial abscess with drainage. CT face on admission showed no abscess formation. Hyperlipidemia History of left carotid endarterectomy Fibromyalgia History of CVA/TIA COPD not in exacerbation Reflex sympathetic dystrophy of the left hand Prior history of smoking DVT prophylaxis with heparin subcu Plan: Patient will be continued on antibiotics in the form of vancomycin. IV hydration. One dose of ceftriaxone was given the ER. Follow blood cultures. No abscess noted on the CT face. Abscess cultures will be sent and ID was consulted. Continue with home medications including Plavix and atorvastatin and pain management with [place] 5. GI and DVT prophylaxis and follow closely. .
--- NOTE | 2021-12-17 15:08 | P.PN ---
Subjective Progress Note Date: 12/17/21 Patient is a 61-year-old female with a known history of fibromyalgia, history of CVA/TIA, COPD, hyperlipidemia, left carotid 70% stenosis status post endarterectomy, reflex sympathetic dystrophy left hand and former smoker presents to ER with complaints of right-sided facial swelling, pain and redness worsening for the past 2 days. Patient says that he started on the right side of the nose and started spreading and also having swelling around the eye. Denied any loss of vision. No complaints of abdominal pain. Denied any complaints of fever or chills. No cough or sputum production. Denied any recent tooth infection. No headache or dizziness or lightheadedness. Facial CT showed extensive cellulitis overlying the right side of the face and with probable receptacle cellulitis. No posterior septal involvement or abscess formation is identified. No psoas from the paranasal sinuses is identified. Patient is edentulous. Laboratory data showed WBC 11.8 hemoglobin 13.3 and platelets 359 Sodium 137 potassium 4.5 chloride 99 bicarb is 26 BUN 14 and creatinine 1.0 and blood sugar 138 Liver enzymes not elevated. 12/16/2021 Patient is currently resting in bed. Awake alert oriented 3. Patient has been afebrile. Patient was noted to have drainage from the facial abscess and cellulitis. Patient is being continued on vancomycin and follow cultures. ID was consulted. Otherwise patient denied any chest pain or shortness of breath. No nausea vomiting or abdominal pain or diarrhea. No cough or sputum production. Laboratory data showed WBC 12.5 hemoglobin 11.4 and platelets 307 Sodium 130 potassium 4.0 chloride 109 bicarb is 21 BUN 11 and creatinine 0.86 and blood sugar is 114calcium 8.3 12/17/2021 Patient was seen and evaluated and follow-up continues on IV antibiotics in the form of vancomycin with infectious disease following. Awaiting wound cultures of the right facial cellulitis. According to nursing staff and patient, the wound spontaneously started draining yesterday and wound cultures were obtained. Blood cultures thus far remain negative. Patient continues with significant swelling although reports has much improved since this initially started. Patient denies chest pain or shortness of breath. Patient is afebrile. Patient is concerned about her diet and lack thereof she reports she was not able to eat until this morning per the orders. Patient did have a diet order although patient did not prefer the food here. Review of systems: Constitutional: No reports of fatigue, fever, or chills, reports some right facial swelling and tenderness Cardiovascular: No reports of chest pain or palpitations Respiratory: No reports of shortness of breath or cough GI: No reports of nausea, no reports of of vomiting : No reports of dysuria or retention Neurovascular: No reports of generalized weakness All medications have been reviewed Active Medications Acetaminophen (Acetaminophen Tab 325 Mg Tab) 650 mg PO Q6HR PRN PRN Reason: Mild Pain or Fever > 100.5 Hydrocodone Bitart/Acetaminophen (Hydrocodone/Apap 5-325mg 1 Each Tab) 1 each PO Q4HR PRN PRN Reason: Moderate Pain Last Admin: 12/17/21 05:02 Dose: 1 each Atorvastatin Calcium (Atorvastatin 40 Mg Tab) 40 mg PO HS [facility] Last Admin: 12/16/21 20:31 Dose: 40 mg Clopidogrel Bisulfate (Clopidogrel 75 Mg Tab) 75 mg PO DAILY [facility] Last Admin: 12/17/21 08:09 Dose: 75 mg Famotidine (Famotidine 20 Mg Tab) 20 mg PO BID [facility] Last Admin: 12/17/21 08:09 Dose: 20 mg Heparin Sodium (Porcine) (Heparin Sodium,Porcine/Pf 5,000 Unit/0.5 Ml Syringe) 5,000 unit SQ Q8HR [facility] Last Admin: 12/17/21 08:09 Dose: 5,000 unit Sodium Chloride (Saline 0.9%) 1,000 mls @ 75 mls/hr IV .[id number] [facility] Last Admin: 12/17/21 05:02 Dose: Not Given Vancomycin HCl 1,250 mg/ (Sodium Chloride) 250 mls @ 125 mls/hr IVPB Q12H [facility] Last Admin: 12/17/21 05:02 Dose: 125 mls/hr Metoprolol Tartrate (Metoprolol Tartrate 25 Mg Tab) 25 mg PO BID [facility] Last Admin: 12/17/21 08:09 Dose: 25 mg Miscellaneous Information (Vancomycin Trough Due 1 Each Misc) 0 each MISCELLANE DIRECTED ONE Stop: 12/18/21 04:01 Naloxone HCl (Naloxone 0.4 Mg/Ml 1 Ml Vial) 0.2 mg IV Q2M PRN PRN Reason: Opioid Reversal Ondansetron HCl (Ondansetron 4 Mg/2 Ml Vial) 4 mg IVP Q8HR PRN PRN Reason: Nausea And Vomiting Tramadol HCl (Tramadol 50 Mg Tab) 100 mg PO HS PRN PRN Reason: Pain Tramadol HCl (Tramadol 50 Mg Tab) 100 mg PO BID@0900,1700 [facility] Last Admin: 12/17/21 08:09 Dose: 100 mg PHYSICAL EXAMINATION: GENERAL: The patient is alert and oriented x4, Well developed, well nourished. Agitated on exam HEENT: Pupils are round and equally reacting to light. EOMI. no scleral icterus. No conjunctival pallor. Normocephalic, atraumatic. No pharyngeal erythema. No thyromegaly. CARDIOVASCULAR: S1 and S2 muffled PULMONARY: diminished breath sounds bilaterally with no wheezing or rhonchi noted. ABDOMEN: soft. Nontender on exam. obese. non-distended, normoactive bowel sounds. No palpable organomegaly. MUSCULOSKELETAL: No joint swelling or deformity. EXTREMITIES: No cyanosis, clubbing, or pedal edema. NEUROLOGICAL: Gross neurological examination did not reveal any focal deficits. Diffuse weakness SKIN: No rashes. Erythema and swelling noted to the right face cheek area with an open wound that is draining purulent drainage Assessment: Extensive cellulitis of the right side of the face and preseptal cellulitis. And superficial abscess with drainage. CT face on admission showed no abscess formation. Hyperlipidemia History of left carotid endarterectomy Fibromyalgia History of CVA/TIA COPD not in exacerbation Reflex sympathetic dystrophy of the left hand Prior history of smoking DVT prophylaxis with heparin subcu Full code Plan: Patient will be continued on antibiotics in the form of vancomycin. Infectious disease consulted and recommending waiting for finalized cultures. Blood cultures remain negative Recommend to continue with current patient's home medications and pain management Recommend follow-up labs in the a.m. Patient to continue using warm compresses to the right face per ID recommendations as patient continues to have spontaneous drainage of the wound The impression and plan of care has been dictated by Sis Bell nurse practitioner as directed. Dr. Halley MD I have performed a history and examination and MDM of this patient, discussed the same with the dictator, and agree with the dictator's assessment and plan as written ,documented as a scribe. Based on total visit time, I have performed more than 50% of the visit. Any additional findings or plans will be noted. Objective - Vital Signs Vital signs: Vital Signs Temp 98.6 F 12/17/21 05:00 Pulse 75 12/17/21 05:00 Resp 16 12/17/21 05:00 BP 116/67 12/17/21 05:00 Pulse Ox 98 12/17/21 05:00 FiO2 Intake & Output 12/16/21 12/17/21 12/17/21 18:59 06:59 18:59 Intake Total 900 910 Balance 900 910 Intake: Intake, IV Titration 900 550 Amount Sodium Chloride 0.9% 1, 900 300 000 ml @ 75 mls/hr IV . [id number] [facility] Rx#:[id number] Vancomycin 1,250 mg In 250 Sodium Chloride 0.9% 250 ml @ 125 mls/hr IVPB Q12H [facility] Rx#:[id number] Oral 360 Other: # Voids 2 - Labs CBC & Chem 7: 12/16/21 05:27 12/17/21 04:30 Labs: Microbiology - Last 24 Hours (Table) 12/16/21 11:00 Gram Stain - Preliminary Face Wound Culture - Preliminary 12/16/21 11:00 Anaerobic Culture - Preliminary Face 12/15/21 09:15 Blood Culture - Preliminary Blood No Growth after 24 hours 12/15/21 09:00 Blood Culture - Preliminary Blood No Growth after 24 hours
[2021-12-17] MEDS: ATORVASTATIN 40 MG TAB PO SCH (21:27)
--- NOTE | 2021-12-17 23:09 | P.PN ---
Subjective Progress Note Date: 12/17/21 Principal diagnosis: Right-sided facial abscess and cellulitis Patient is a 61-year-old female presented to hospital with right-sided facial pain swelling or redness CT was negative for any abscess however the patient did have subsequent spontaneous drainage of the abscess which was cultured. On today's evaluation that is 12/17/2021, patient denies having any fever or any chills, the patient have right-sided facial pain and swelling has slightly decreased, patient denies having any chest pain or shortness of breath or cough no abdominal pain no diarrhea Objective - Vital Signs Vital signs: Vital Signs Temp 98.6 F 12/17/21 05:00 Pulse 75 12/17/21 05:00 Resp 16 12/17/21 05:00 BP 116/67 12/17/21 05:00 Pulse Ox 98 12/17/21 05:00 FiO2 Intake & Output 12/16/21 12/17/21 12/17/21 18:59 06:59 18:59 Intake Total 900 910 Balance 900 910 Intake: Intake, IV Titration 900 550 Amount Sodium Chloride 0.9% 1, 900 300 000 ml @ 75 mls/hr IV . [id number] [facility] Rx#:[id number] Vancomycin 1,250 mg In 250 Sodium Chloride 0.9% 250 ml @ 125 mls/hr IVPB Q12H [facility] Rx#:[id number] Oral 360 Other: # Voids 2 - Exam GENERAL DESCRIPTION: Middle-age female lying in bed in no distress HEENT; right-sided facial swelling induration slightly decreased RESPIRATORY SYSTEM: Unlabored breathing , decreased breath sounds at bases HEART: S1 S2 regular rate and rhythm , ABDOMEN: Soft , no tenderness EXTREMITIES: No edema feet - Labs CBC & Chem 7: 12/16/21 05:27 12/17/21 04:30 Labs: Microbiology - Last 24 Hours (Table) 12/16/21 11:00 Gram Stain - Preliminary Face Wound Culture - Preliminary 12/16/21 11:00 Anaerobic Culture - Preliminary Face 12/15/21 09:15 Blood Culture - Preliminary Blood No Growth after 24 hours 12/15/21 09:00 Blood Culture - Preliminary Blood No Growth after 24 hours Assessment and Plan (1) Facial cellulitis Current Visit: Yes Status: Acute Code(s): L03.211 - CELLULITIS OF FACE SNOMED Code(s): 763880380 Plan: 1patient with right-sided facial abscess and cellulitis not seen on the CT however the patient did have a spontaneous drainage of the abscess this morning which has been culture likely from gram-positive skin ry such as staph and strep less likely gram-negative infection. 2warm compress to the right side of the face to further liquefy the abscess a nd it did drain out. 3patient to continue with vancomycin pharmacy to dose on waiting for the cultu res to finalize Time with Patient: Less than 30
[2021-12-18] MEDS: HYDROcodone/APAP 5-325MG 1 EACH TAB PO PRN (02:22)
[2021-12-18] MEDS: SODIUM CHLORIDE 0.9% 1,000 ML IV SCH (02:23)
[2021-12-18] MEDS ORDERED: VANCOMYCIN TROUGH DUE 1 EACH MISC MISCELLANE ONE (04:00)
[2021-12-18] MEDS: VANCOMYCIN 1,250 MG in SODIUM CHLORIDE 0.9% 250 ML IVPB SCH (06:12)
[2021-12-18] MEDS: traMADol 50 MG TAB PO SCH ×2 (07:48→15:57)
[2021-12-18] MEDS: HEPARIN SODIUM,PORCINE/PF 5,000 UNIT/0.5 ML SYRINGE SQ SCH ×2 (07:48→15:52)
[2021-12-18] MEDS: FAMOTIDINE 20 MG TAB PO SCH (07:49)
[2021-12-18] MEDS: CLOPIDOGREL 75 MG TAB PO SCH (07:49)
[2021-12-18] MEDS: METOPROLOL TARTRATE 25 MG TAB PO SCH (07:49)
[2021-12-18 11:41] VITALS: BP 99/67; PULSE 66; RESP 20; TEMP 98.1
--- NOTE | 2021-12-18 16:13 | P.PN ---
Subjective Progress Note Date: 12/18/21 Principal diagnosis: Right-sided facial abscess and cellulitis Patient is a 61-year-old female presented to hospital with right-sided facial pain swelling or redness CT was negative for any abscess however the patient did have subsequent spontaneous drainage of the abscess which was cultured. On today's evaluation that is 12/18/2021, patient remains to be afebrile, the patient have right-sided facial pain and swelling has decreased in intensity, patient denies having any chest pain or shortness of breath or cough no abdominal pain no diarrhea, the patient is feeling better wants to go home Objective - Vital Signs Vital signs: Vital Signs Temp 98.1 F 12/18/21 11:41 Pulse 66 12/18/21 11:41 Resp 20 12/18/21 11:41 BP 99/67 12/18/21 11:41 Pulse Ox 98 12/18/21 11:41 FiO2 Intake & Output 12/17/21 12/18/21 12/18/21 18:59 06:59 18:59 Intake Total 1150 Balance 1150 Intake: Intake, IV Titration 1150 Amount Sodium Chloride 0.9% 1, 900 000 ml @ 75 mls/hr IV . [id number] [facility] Rx#:[id number] Vancomycin 1,250 mg In 250 Sodium Chloride 0.9% 250 ml @ 125 mls/hr IVPB Q12H [facility] Rx#:[id number] Other: Voiding Method Toilet Toilet # Voids 1 - Exam GENERAL DESCRIPTION: Middle-age female lying in bed in no distress HEENT; right-sided facial swelling induration slightly decreased RESPIRATORY SYSTEM: Unlabored breathing , decreased breath sounds at bases HEART: S1 S2 regular rate and rhythm , ABDOMEN: Soft , no tenderness EXTREMITIES: No edema feet - Labs CBC & Chem 7: 12/16/21 05:27 12/18/21 03:32 Labs: Microbiology - Last 24 Hours (Table) 12/15/21 09:15 Blood Culture - Preliminary Blood No Growth after 72 hours 12/15/21 09:00 Blood Culture - Preliminary Blood No Growth after 72 hours 12/16/21 11:00 Gram Stain - Final Face Wound Culture - Final Assessment and Plan (1) Facial cellulitis Current Visit: Yes Status: Acute Code(s): L03.211 - CELLULITIS OF FACE SNOMED Code(s): 675710965 Plan: 1patient with right-sided facial abscess and cellulitis not seen on the CT augustine peter the patient did have a spontaneous drainage of the abscess this morning which has been culture likely from gram-positive skin ry such as staph and strep less likely gram-negative infection. Cultures came back negative blood culture has been negative 2repeat deep culture has been obtained today and those will be followed 3-as the patient insisting on going home and culture were negative for MRSA we will discontinue vancomycin give her a dose of Rocephin 2 g times one afterwards patient will go home on 10 day course of oral Bactrim DS and Keflex and close outpatient follow this was discussed with the R DEVELOPER for admitting team Time with Patient: Less than 30
--- NOTE | 2021-12-19 10:27 | P.DS ---
Providers Date of admission: 12/15/21 11:04 Expected date of discharge: 12/18/21 Attending physician: Pedro Rowley Consults: 12/16/21 10:26 Consult Physician Urgent Consulting Provider: Tenzin Yates Consult Reason/Comments: facial / orbital cellulitis Do you want consulting provider notified?: Yes Primary care physician: Varun Little [facility] Course: Final diagnosis Extensive cellulitis of the right side of the face and preseptal cellulitis. And superficial abscess with drainage. CT face on admission showed no abscess formation. Hyperlipidemia History of left carotid endarterectomy Fibromyalgia History of CVA/TIA COPD not in exacerbation Reflex sympathetic dystrophy of the left hand Prior history of smoking DVT prophylaxis Full code Discharge disposition Patient is being discharged in a stable condition with guarded prognosis to home . Patient will follow-up with Dr. Little in the outpatient setting upon discharge. Patient is to continue with oral antibiotics in the form of Bactrim twice daily and Keflex 4 times daily for the next 10 days and close outpatient follow-up with Dr. Yates at the clinic as scheduled. Total time taken is greate r than 35 minutes. Hospital course This is a 61-year-old female who was recently admitted with right-sided facial swelling and cellulitis and was being closely monitored. Patient was maintained on IV antibiotics and had spontaneous drainage noted on the right side of the face and recommending continuing with warm compresses to assist with drainage. Cultures thus far are negative and repeat cultures will be obtained and patient will follow-up outpatient in the clinic. Patient is to continue on oral Bactrim twice daily along with Keflex 500 mg 4 times daily for the next 10 days to complete the course. Currently no reports of chest pain, shortness of breath, or palpitations. Patient is afebrile. No reports of nausea or vomiting and patient is tolerating diet. Patient will be discharged home today. Physical exam: Gen: This is a 61-year-old female awake, alert and oriented 3, well-developed, well-nourished. HEENT: Head is atraumatic, normocephalic. Pupils equal, round. Sclerae is anicteric. NECK: Supple. No JVD. No lymphadenopathy. No thyromegaly. LUNGS: Clear to auscultation. No wheezes or rhonchi. No intercostal retractions. HEART: Regular rate and rhythm. No murmur. ABDOMEN: Soft. Bowel sounds are present. No masses. No tenderness. EXTREMITIES: No pedal edema. No calf tenderness. NEUROLOGICAL: Patient is awake, alert and oriented x3. Cranial nerves 2 through 12 are grossly intact. Skin: Redness and swelling noted to the right facial cheek area with a draining wound with purulent discharge with significant improvement in the redness and swelling since admission Please refer to medication reconciliation sheet for a list of medications. The impression and plan of care has been dictated by Sis Bell, Nurse Practitioner as directed. Dr. Halley MD I have performed a history and examination and MDM of this patient, discussed the same with the dictator, and agree with the dictator's assessment and plan as written ,documented as a scribe. Based on total visit time, I have performed more than 50% of the visit. Patient Condition at Discharge: Good Plan - Discharge Summary Discharge Rx Participant: Yes New Discharge Prescriptions: New Sulfamethox-Tmp 800-160Mg [Bactrim DS 800-160 mg] 1 tab PO Q12HR 10 Days #20 tab Cephalexin [Keflex] 500 mg PO Q6HR 10 Days #40 cap HYDROcodone/APAP 5-325MG [[place] 5-325] 1 each PO Q4HR PRN #9 tab PRN Reason: Moderate Pain Continue traMADol HCl [Ultram] 100 mg PO BID Atorvastatin [Lipitor] 40 mg PO HS #30 tab Clopidogrel Bisulfate [Plavix] 75 mg PO DAILY #30 tab Metoprolol Tartrate [Lopressor] 25 mg PO BID #0 Fluconazole 150 mg PO DAILY PRN PRN Reason: YEAST INFECTION Mupirocin 2% Oint [Bactroban 2% Oint] 1 applic TOPICAL BID ISOtretinoin [Isotretinoin] 20 mg PO DAILY Fluocinolone/Shower Cap [Fluocinolone 0.01% Scalp Oil] 1 applic TOPICAL BID PRN PRN Reason: SCALP Famotidine [Pepcid] 20 mg PO BID Albuterol Inhaler [Ventolin Hfa Inhaler] 2 puff INHALATION RT-Q6H PRN PRN Reason: Shortness Of Breath traMADol HCL 100 mg PO HS PRN PRN Reason: Pain Estrogens, Conjugated Cream [Premarin Vaginal Cream] 0.5 gm VAGINAL DIRECTED Discontinued clindamycin HCL 300 mg PO Q8H Discharge Medication List traMADol HCl [Ultram] 100 mg PO BID 01/22/16 [History] Atorvastatin [Lipitor] 40 mg PO HS #30 tab 11/09/17 [Rx] Clopidogrel Bisulfate [Plavix] 75 mg PO DAILY #30 tab 01/28/18 [Rx] Metoprolol Tartrate [Lopressor] 25 mg PO BID #0 05/22/18 [Rx] Albuterol Inhaler [Ventolin Hfa Inhaler] 2 puff INHALATION RT-Q6H PRN 12/15/21 [History] Estrogens, Conjugated Cream [Premarin Vaginal Cream] 0.5 gm VAGINAL DIRECTED 12/15/21 [History] Famotidine [Pepcid] 20 mg PO BID 12/15/21 [History] Fluconazole 150 mg PO DAILY PRN 12/15/21 [History] Fluocinolone/Shower Cap [Fluocinolone 0.01% Scalp Oil] 1 applic TOPICAL BID PRN 12/15/21 [History] ISOtretinoin [Isotretinoin] 20 mg PO DAILY 12/15/21 [History] Mupirocin 2% Oint [Bactroban 2% Oint] 1 applic TOPICAL BID 12/15/21 [History] traMADol HCL 100 mg PO HS PRN 12/15/21 [History] Cephalexin [Keflex] 500 mg PO Q6HR 10 Days #40 cap 12/18/21 [Rx] HYDROcodone/APAP 5-325MG [[place] 5-325] 1 each PO Q4HR PRN #9 tab 12/18/21 [Rx] Sulfamethox-Tmp 800-160Mg [Bactrim DS 800-160 mg] 1 tab PO Q12HR 10 Days #20 tab 12/18/21 [Rx] Follow up Appointment(s)/Referral(s): [facility], [NON-STAFF] - 1 Week Varun Little DO [Primary Care Provider] - 12/26/21 11:45 am Tenzin Yates MD [STAFF PHYSICIAN] - 12/31/21 3:15 pm Patient Instructions/Handouts: Cellulitis (ED) Activity/Diet/Wound Care/Special Instructions: Activity Limited until follow-up Follow-up with primary care provider on discharge Follow-up with infectious disease Dr. Yates in his office in one week Continue taking antibiotics as prescribed If getting an upset stomach with antibiotics take with small meals Continue with frequent handwashing and avoid touching her face Continue with warm compresses to the right side of the face Discharge Disposition: HOME SELF-CARE
== END 2021-12-18 17:14 | disposition home or self-care (01) | DRG 603 ==
LOC: EC 08:46 → 4SSUR 11:04 → 5NMEDONC 15:47
PROVIDERS: ADMIT Internal Medicine; ATTEND Internal Medicine
DX: L02.01 Cutaneous abscess of face (principal); L03.211 Cellulitis of face; L03.213 Periorbital cellulitis; G90.512 Complex regional pain syndrome I of left upper limb; M79.7 Fibromyalgia; J44.9 Chronic obstructive pulmonary disease, unspecified; I10 Essential (primary) hypertension; R13.10 Dysphagia, unspecified; Z79.02 Long term (current) use of antithrombotics/antiplatelets; E78.5 Hyperlipidemia, unspecified; Z79.899 Other long term (current) drug therapy; Z80.0 Family history of malignant neoplasm of digestive organs; Z86.73 Personal history of transient ischemic attack (TIA), and cerebral infarction without residual deficits; Z86.010 Personal history of colon polyps; Z87.891 Personal history of nicotine dependence; Z87.01 Personal history of pneumonia (recurrent); Z88.0 Allergy status to penicillin
CPT/HCPCS: 36415; 70487; 80048; 80053; 80202; 82565; 83605; 85025; 87040; 87070; 87075; 87205; 96361; 96365; 96366; 96367; 96375; 96376; 99285

== ENCOUNTER → 2022-01-29 | Outpatient (CLI) | payer MEDICARE, OTHER ==
[2022-01-29 18:05] LABS: Basophils % (A) 1.3 %; Eosinophils # (A) 0.19 X 10*3/uL (0.04-0.35); Eosinophils % (A) 2.5 %; HGB 13.3 g/dL (12.0-15.0); Immature Grans, Automated 0.3 %; Lymphocytes # (A) 2.75 X 10*3/uL (0.90-5.00); Lymphocytes % (A) 35.7 %; MCH 29.8 pg (27.0-32.0); MCHC 33.3 g/dL (32.0-37.0); MCV 89.7 fL (80.0-97.0); Mean Platelet Volume 10.6 fL (9.5-12.2); Monocytes % (A) 9.1 %; NRBC Per 100 WBC 0 /100 WBCS (0.0-0.0); Neutrophils # (A) 3.95 X 10*3/uL (1.80-7.70); Neutrophils % (A) 51.1 %; Platelet Count 408 X 10*3/uL (140-440); RBC 4.46 X 10*6/uL (4.10-5.20); RDW 12.8 % (11.5-14.5); WBC 7.71 X 10*3/uL (4.50-10.00)
== END | disposition home or self-care (01) ==
LOC: LABWHC1 13:43
PROVIDERS: ATTEND Nurse Practitioner Family
DX: L70.0 Acne vulgaris (principal)
CPT/HCPCS: 36415; 82465; 84450; 84460; 84478; 85025

== ENCOUNTER → 2022-02-17 | Outpatient (CLI) | payer MEDICARE, OTHER | END | disposition home or self-care (01) | LOC: LABWHC1 09:01 | PROVIDERS: ATTEND Nurse Practitioner Family | DX: L70.0 Acne vulgaris (principal) | CPT/HCPCS: 36415; 82465; 84478 ==

== ENCOUNTER 2022-03-24 09:45 | Emergency (ER) | payer MEDICARE, OTHER ==
[2022-03-24 09:57] VITALS: BP 182/68; PULSE 70; RESP 18; TEMP 97.6
--- NOTE | 2022-03-24 10:21 | XR ---
EXAMINATION TYPE: XR shoulder complete LT DATE OF EXAM: 03/24/2022 COMPARISON: NONE HISTORY: Pain TECHNIQUE: Three views are submitted. FINDINGS: There is a displaced fracture of the greater tuberosity and humeral neck. Mild hypertrophic change of the AC joint. Visualized lung garland clear and rib cage is intact as visualized. IMPRESSION: 1. Displaced humeral neck and greater tuberosity fracture..
--- NOTE | 2022-03-24 10:21 | XR ---
EXAMINATION TYPE: XR wrist complete RT DATE OF EXAM: 03/24/2022 CLINICAL HISTORY: pain TECHNIQUE: Frontal, lateral and oblique images of the right wrist are obtained. COMPARISON: None. FINDINGS: There is no acute fracture/dislocation evident. The joint spaces appear within normal limits. The o verlying soft tissue appears unremarkable. IMPRESSION: There is no acute fracture or dislocation seen. ICD 10 NO FRACTURE, INITIAL EVALUATION
[2022-03-24] MEDS ORDERED: HYDROmorphone 1 MG/ML 1 ML SYRINGE IM STA (11:02)
[2022-03-24] MEDS ORDERED: ACET/COD 300 MG/30 MG STARTER PACK 6 TAB BTL PO STA (11:02)
--- NOTE | 2022-03-24 11:10 | ED ---
Upper Extremity HPI - General Chief Complaint: Extremity Injury, Upper Stated Complaint: fall, shoulder pain Time Seen by Provider: 03/24/22 10:40 Source: patient, RN notes reviewed Mode of arrival: ambulatory Limitations: no limitations - History of Present Illness Initial Comments: Patient is a 62 year old female presenting to the ER with a chief compliant of left shoulder and right wrist pain. Patient fell this morning while bringing in the garbage cans. She states she tripped on her driveway and landed on her left shoulder. She reports trying to brace herself with her right hand. Denies LOC or numbness or tingling in extremities. - Related Data Home Medications Medication Instructions Recorded Confirmed traMADol HCl [Ultram] 100 mg PO BID 01/22/16 12/15/21 Albuterol Inhaler [Ventolin Hfa 2 puff INHALATION RT-Q6H PRN 12/15/21 12/15/21 Inhaler] Estrogens, Conjugated Cream 0.5 gm VAGINAL DIRECTED 12/15/21 12/15/21 [Premarin Vaginal Cream] Famotidine [Pepcid] 20 mg PO BID 12/15/21 12/15/21 Fluconazole 150 mg PO DAILY PRN 12/15/21 12/15/21 Fluocinolone/Shower Cap 1 applic TOPICAL BID PRN 12/15/21 12/15/21 [Fluocinolone 0.01% Scalp Oil] ISOtretinoin [Isotretinoin] 20 mg PO DAILY 12/15/21 12/15/21 Mupirocin 2% Oint [Bactroban 2% 1 applic TOPICAL BID 12/15/21 12/15/21 Oint] traMADol HCL 100 mg PO HS PRN 12/15/21 12/15/21 Previous Rx's Medication Instructions Recorded Atorvastatin [Lipitor] 40 mg PO HS #30 tab 11/09/17 Clopidogrel Bisulfate [Plavix] 75 mg PO DAILY #30 tab 01/28/18 Metoprolol Tartrate [Lopressor] 25 mg PO BID #0 05/22/18 Cephalexin [Keflex] 500 mg PO Q6HR 10 Days #40 cap 12/18/21 HYDROcodone/APAP 5-325MG [[place] 1 each PO Q4HR PRN #9 tab 12/18/21 5-325] Sulfamethox-Tmp 800-160Mg [Bactrim 1 tab PO Q12HR 10 Days #20 tab 12/18/21 DS 800-160 mg] Allergies Allergy/AdvReac Type Severity Reaction Status Date / Time amoxicillin Allergy Dyspnea Verified 03/24/22 09:56 nickel AdvReac Rash/Hives Verified 03/24/22 09:56 Penicillins AdvReac Dyspnea Verified 03/24/22 09:56 Review of Systems ROS Statement: Those systems with pertinent positive or pertinent negative responses have been documented in the HPI. ROS Other: All systems not noted in ROS Statement are negative. Past Medical History Past Medical History: COPD, CVA/TIA, Fibromyalgia, Hyperlipidemia, Vascular Disorder Additional Past Medical History / Comment(s): 11/04/17 CVA, syncope and slurred speech which has resolved, hx.of L carotid 70% stenosed,Reflex Sympathetic Dystrophy L hand, benign colon polyps. July of 2021 dx. with pneumonia. History of Any Multi-Drug Resistant Organisms: None Reported Past Surgical History: Appendectomy, Back Surgery, Breast Surgery, Cholecystectomy, Tubal Ligation Additional Past Surgical History / Comment(s): 12/29/17 L caratid endartectomy at [facility], LEFT BREAST BX/LUMPECTOMY BENIGN, COLONOSCOPIES WITH BENIGN POLYPECTOMIES, NERVE BLOCK TO NECK X3, LOW BACK SURGERY, NEURO STIMULATOR IN LOW BACK NOT CONNECTED TO WIRES. Past Anesthesia/Blood Transfusion Reactions: No Reported Reaction Past Psychological History: No Psychological Hx Reported Smoking Status: Former smoker Past Alcohol Use History: None Reported Past Drug Use History: None Reported - Past Family History Father Family Medical History: Cancer Additional Family Medical History / Comment(s): COLON CANCER. Father is . Mother Family Medical History: Cancer Additional Family Medical History / Comment(s): Mother is . Liver cancer. General Exam Limitations: no limitations General appearance: alert, in no apparent distress Head exam: Present: atraumatic, normocephalic, normal inspection Eye exam: Present: normal appearance, PERRL, EOMI. Absent: scleral icterus, conjunctival injection, periorbital swelling ENT exam: Present: normal exam, mucous membranes moist Neck exam: Present: normal inspection. Absent: tenderness, meningismus, lymphadenopathy Respiratory exam: Present: normal lung sounds bilaterally. Absent: respiratory distress, wheezes, rales, rhonchi, stridor Cardiovascular Exam: Present: regular rate, normal rhythm, normal heart sounds. Absent: systolic murmur, diastolic murmur, rubs, gallop, clicks GI/Abdominal exam: Present: soft, normal bowel sounds. Absent: distended, tenderness, guarding, rebound, rigid Extremities exam: Present: tenderness (left shoulder ), joint swelling (left shoulder ), other (left shoulder -limited ROM due to pain; right radial styloid tenderness and edema) Back exam: Present: normal inspection Neurological exam: Present: alert, oriented X3, CN II-XII intact Psychiatric exam: Present: normal affect, normal mood Skin exam: Present: warm, dry, intact, normal color, abrasion (right radial styloid ). Absent: rash Course Vital Signs 03/24/22 09:54 Temperature 97.6 F Pulse Rate 70 Respiratory 18 Rate Blood Pressure 182/68 O2 Sat by Pulse 97 Oximetry Medical Decision Making - Medical Decision Making X-ray shows left proximal humerus fracture, wrist x-ray read as negative. Patient will follow-up with orthopedics. Disposition Clinical Impression: Closed fracture of left proximal humerus Disposition: HOME SELF-CARE Condition: Stable Instructions (If sedation given, give patient instructions): Proximal Humerus Fracture (ED) Additional Instructions: Please wear sling and follow-up with orthopedics as directed. Is patient prescribed a controlled substance at d/c from ED?: No Referrals: Varun Little DO [Primary Care Provider] - 1-2 days Time of Disposition: 11:13
== END 2022-03-24 11:44 | disposition home or self-care (01) ==
LOC: EC 09:45
DX: S42.202A Unspecified fracture of upper end of left humerus, initial encounter for closed fracture (principal); J44.9 Chronic obstructive pulmonary disease, unspecified; G45.9 Transient cerebral ischemic attack, unspecified; E78.5 Hyperlipidemia, unspecified; Z87.891 Personal history of nicotine dependence; Z88.0 Allergy status to penicillin; Z79.51 Long term (current) use of inhaled steroids; Z79.899 Other long term (current) drug therapy; W01.0XXA Fall on same level from slipping, tripping and stumbling without subsequent striking against object, initial encounter
CPT/HCPCS: 73030; 73110; 99283; 96372; J1170

== ENCOUNTER → 2022-08-19 | Outpatient (CLI) | payer MEDICARE, OTHER ==
--- NOTE | 2022-08-19 15:14 | US ---
EXAMINATION TYPE: US transvaginal DATE OF EXAM: 08/19/2022 COMPARISON: CT urogram July 08, 2022 CLINICAL INDICATION: Female, 62 years old with history of R10.2 PELVIC PAIN; pain TECHNIQUE: Transvaginal (TV). EXAM MEASUREMENTS: Uterus: 5.5 x 3.0 x 3.7 cm Endometrial Stripe: .6 cm 1. Uterus: Anteverted Nabothian cysts. 2. Endometrium: wnl 3. Right Ovary: Obscured by overlying bowel gas 4. Left Ovary: Obscured by overlying bowel gas 5. Bilateral Adnexa: wnl 6. Posterior cul-de-sac: wnl Markedly suboptimal study. Poorly visualized uterus and endometrium. Nonvisualized ovaries. IMPRESSION: Suboptimal study. No suspicious pelvic mass is clearly seen.
== END | disposition home or self-care (01) ==
LOC: RADUSWWP 14:40
PROVIDERS: ATTEND Family Medicine
DX: R10.2 Pelvic and perineal pain (principal)
CPT/HCPCS: 76830

== ENCOUNTER → 2022-08-22 | Outpatient (CLI) | payer MEDICARE, OTHER ==
--- NOTE | 2022-08-25 08:33 | MM ---
Reason for Exam: Screening (asymptomatic). Last mammogram was performed 1 year(s) and 8 month(s) ago. Patient History: Menarche at age 13. First Full-Term at age 17. Postmenopausal. Patient has history of breast feeding. Excisional Biopsy on the Left side. 07/16/2020, Benign Core Biopsy on the left side. Risk Values: Jaki 5 year model risk: 1.7%. NCI Lifetime model risk: 7.5%. Prior Study Comparison: 12/06/2019 Bilateral Screening Mammogram, [facility]. 06/13/2020 Left Diagnostic Mammogram, [facility]. 12/24/2020 Bilateral Diagnostic Mammogram, [facility]. Tissue Density: There are scattered fibroglandular densities. Findings: Analyzed By CAD. Benign-appearing calcifications. There is no suspicious group of microcalcifications or new suspicious mass in either breast. Overall Assessment: Benign, BI-RAD 2 Management: Screening Mammogram of both breasts in 1 year. A clinical breast exam by your physician is recommended on an annual basis and results should be correlated with mammographic findings. [facility] will attempt to contact patient to return for supplemental views and ultrasound if indicated. Electronically signed and approved by: Ravi Mayer DO
== END | disposition home or self-care (01) ==
LOC: RADMAMWWP 12:28
PROVIDERS: ATTEND Family Medicine
DX: Z12.31 Encounter for screening mammogram for malignant neoplasm of breast (principal); Z78.0 Asymptomatic menopausal state
CPT/HCPCS: 77063; 77067

== ENCOUNTER → 2023-02-06 | Outpatient (CLI) | payer MEDICARE, OTHER ==
--- NOTE | 2023-02-07 09:00 | PE ---
EXAMINATION TYPE: PET CT fusion skull to thigh DATE OF EXAM: 02/06/2023 CLINICAL INDICATION:Female, 63 years old with history of C67.9 MALIGNANT NEOPLASM OF BLADDER, UNSPECI FIED; TECHNIQUE: Following the intravenous administration of 12.82 mCi of F-18 FDG, whole body images are performed from the skull base to the midthigh. Images are reviewed on the computer in the coronal, axial, and sagittal planes. Reconstructed rotating images are created on independent workstation and reviewed on the computer. A non-contrast CT is performed in conjunction with the PET scan. Glucose level 95 mg/dL CT DLP: 410 mGycm, Automated exposure control for dose reduction was used. COMPARISON: CT 07/08/2022, PET/CT None, FINDINGS: Mediastinal SUV mean is 1.7. Hepatic parenchyma SUV mean is 2.5. SKULL BASE AND NECK: No suspicious radiotracer activity. CHEST, MEDIASTINUM, AND HILAR REGION: No suspicious radiotracer activity. ABDOMEN AND PELVIS: No suspicious radiotracer activity. Urinary bladder contents uptake due to excret ed radiotracer. No focal abnormality visualized within the abdomen or pelvis to suggest metastatic di sease or primary lung malignancy. MUSCULOSKELETAL STRUCTURES: No suspicious radiotracer activity. OTHER CT: Atherosclerosis of the arterial vasculature. Coronary artery ossifications. The gallbladder surgically absent. Fat-containing umbilical hernia. IMPRESSION: No suspicious radiotracer activity to suggest metastatic disease. No primary malignancy definitively visualized.
== END | disposition home or self-care (01) ==
LOC: RADPETMAIN 12:04
PROVIDERS: ATTEND Family Medicine
DX: C67.8 Malignant neoplasm of overlapping sites of bladder (principal)
CPT/HCPCS: 78815; A9552

== ENCOUNTER → 2023-02-18 | Outpatient (CLI) | payer MEDICARE, OTHER ==
[2023-02-18 17:33] LABS: HCT 44.4 % (37.2-46.3); MCH 29.3 pg (27.0-32.0); MCHC 31.5 d/dL (32.0-37.0); MCV 92.9 FL (80.0-97.0); Mean Platelet Volume 10.6 FL (9.5-12.2); NRBC Per 100 WBC 0 X 10*3/uL (0.00-0.01); Platelet Count 370 X 10*3/uL (140-440); RBC 4.78 X 10*6/uL (4.10-5.20); RDW 12.7 % (11.5-14.5); WBC 7.01 X 10*3/uL (4.50-10.00)
[2023-02-18 17:38] LABS: BUN/Creat Ratio 12.36 Ratio (12.00-20.00); Blood Urea Nitrogen 13.6 mg/dL (9.0-27.0); Calcium 9.7 mg/dL (8.7-10.3); Carbon Dioxide 27.3 mmol/L (21.6-31.8); Chloride 103 mmol/L (96-109); Glucose 131 mg/dL (70-110); Potassium 4.4 mmol/L (3.5-5.5); Sodium 141 mmol/L (135-145)
[2023-02-18 18:00] LABS: Appearance,Urine Clear (Clear); Bilirubin,Urine Negative (Negative); Blood,Urine Trace (Negative); Color,Urine Yellow (Yellow); Ketones,Urine Negative (Negative); Nitrite,Urine Negative (Negative); PH, Urine 5.5; Specific Gravity,Urine 1.017 (1.001-1.030); Urobilinogen,Urine 0.2 E.U./DL
[2023-02-18 18:33] LABS: Bacteria,Urine Trace
== END | disposition home or self-care (01) ==
LOC: LABPAT 08:44
PROVIDERS: ATTEND Urology
DX: Z01.812 Encounter for preprocedural laboratory examination (principal); C67.9 Malignant neoplasm of bladder, unspecified; R31.29 Other microscopic hematuria
CPT/HCPCS: 36415; 80048; 81001; 85027; 87086

== ENCOUNTER → 2023-02-20 | Outpatient (CLI) | payer MEDICARE, OTHER | END | disposition home or self-care (01) | LOC: LABPAT 10:19 | PROVIDERS: ATTEND Urology | DX: Z01.812 Encounter for preprocedural laboratory examination (principal) | CPT/HCPCS: 93005 ==

== ENCOUNTER → 2023-02-23 | Outpatient (CLI) | payer MEDICARE, OTHER ==
--- NOTE | 2023-02-23 14:53 | CT ---
EXAMINATION TYPE: CT lumbar spine wo con CT DLP: 753 mGycm, Automated exposure control for dose reduction was used. DATE OF EXAM: 02/23/2023 1:44 PM COMPARISON: PET/CT 02/06/2023, CT urogram 07/08/2022. CLINICAL INDICATION:Female, 63 years old with history of M51.37 DISC DEGENERATION; PHH, Disc Degenera tion TECHNIQUE: Multiple axial images were obtained from the midportion of T11 through the sacroiliac traci nts. Soft tissue and bone windows in coronal and sagittal planes were obtained and reviewed. FINDINGS: Alignment: There are 5 lumbar type vertebral bodies. Mild retrolisthesis of L1 on L2, L2 on L3, L3 on L4, and L4 on L5. Bone: No evidence of acute fracture is identified. Stable anterior wedge compression deformity of th e L1 vertebral body with approximately 40% height loss and 2 mm retropulsion. Prominent bilateral fac et arthropathy at L4-L5 and L5-S1 bilaterally. Postsurgical changes from laminectomy at L5-S1. Discs: T12-L1: No spinal canal or neural foraminal stenosis is identified. L1-L2: Mild retrolisthesis. Broad-based disc bulge with mild effacement of the anterior thecal sac. T he neural foramen are patent bilaterally. L2-L3: Mild retrolisthesis. Broad-based disc bulge with mild effacement of the anterior thecal sac. T he neural foramen are patent bilaterally. L3-L4: Mild retrolisthesis. Broad-based disc bulge with ligament of flavum buckling and bilateral fac et arthropathy contribute to moderate central canal stenosis. Mild bilateral neural foraminal stenosi s. L4-L5: Broad-based disc bulge with bilateral ligamentum flavum buckling and bilateral facet arthropa thy resulting in mild central canal stenosis. Mild bilateral neural foraminal stenosis. L5-S1: Broad-based disc bulge with mild effacement of the anterior thecal sac. Bilateral facet arthro katelin. Mild retrolisthesis. Mild bilateral neural foraminal stenosis. Other: Atherosclerotic calcification of the aorta and its branches. IMPRESSION: 1. No evidence for acute spinal fracture. 2. Stable chronic anterior wedge compression deformity of the L1 vertebral body with approximately 40 % height loss and 2 mm retropulsion. 3. Mild retrolisthesis of L1 on L2, L2 on L3, L3 on L4, and L4 on L5. 4. Moderate multilevel degenerative disc disease and facet arthropathy as described above.
== END | disposition home or self-care (01) ==
LOC: RADCTMAIN 13:04
PROVIDERS: ATTEND Physical Medicine & Rehabilitation
DX: M43.16 Spondylolisthesis, lumbar region (principal); M48.062 Spinal stenosis, lumbar region with neurogenic claudication; M51.17 Intervertebral disc disorders with radiculopathy, lumbosacral region; M47.27 Other spondylosis with radiculopathy, lumbosacral region; M48.56XA Collapsed vertebra, not elsewhere classified, lumbar region, initial encounter for fracture
CPT/HCPCS: 72131

== ENCOUNTER 2023-02-24 11:46 | Day surgery (SDC) | payer MEDICARE, OTHER ==
[2023-02-19 12:41] VITALS: BMI 26.9
--- NOTE | 2023-02-24 07:17 | P.HPIHPCON ---
History of Present Illness H&P Date: 02/24/23 Chief Complaint: Bladder cancer This is a 63-year-old female with history of CIS of the bladder, she is status post TURBT followed by induction BCG. Underwent a cystoscopy that showed a 3 cm focal erythematous patch along the posterior bladder wall. Discussed this is concerning for CIS. Discussed recommend proceeding with TURBT. Discussed risk of bleeding, infection and bladder perforation. Consent for Procedure: I have explained the operation/procedure to the patient, including the risks, benefits, side effects, alternative therapies (including not receiving the proposed treatment or service), the likelihood of the patient achieving his/her goals, and potential recuperation problems for the procedure/sedation/analgesia, as well as any blood products, if indicated. I also explained to the patient the risks, benefits and side effects of the alternatives, as well as the risks related to not receiving the proposed procedure, care, treatment, or services. Past Medical History Past Medical History: Cancer, COPD, CVA/TIA, Fibromyalgia, GERD/Reflux, Hyperlipidemia, Hypertension, Neurologic Disorder, Osteoarthritis (OA), Syncope, Vascular Disorder Additional Past Medical History / Comment(s): Current bladder cancer. Hx CVA X2, last 11/04/17, had syncope and slurred speech, now resolved. Reflex Sympathetic Dystrophy left hand. Neuropathy, sciatica, chronic back pain. "Feet get really cold." Constipation. History of Any Multi-Drug Resistant Organisms: None Reported Past Surgical History: Appendectomy, Back Surgery, Breast Surgery, Cholecystectomy, Tubal Ligation Additional Past Surgical History / Comment(s): 12/29/17 Left carotid endartectomy at [facility], LEFT BREAST BIOPSY/LUMPECTOMY BENIGN, COLONOSCOPIES WITH BENIGN POLYPECTOMIES, NERVE BLOCK TO NECK X3, LOW BACK SURGERY, NEURO STIMULATOR IN LOW BACK NOT CONNECTED TO WIRES-BOX WAS REMOVED. Past Anesthesia/Blood Transfusion Reactions: No Reported Reaction Additional Past Anesthesia/Blood Transfusion Reaction / Comment(s): Has never had blood transfusion. Past Psychological History: No Psychological Hx Reported Smoking Status: Former smoker Past Alcohol Use History: None Reported Additional Past Alcohol Use History / Comment(s): quit smoking july 2019. Past Drug Use History: None Reported - Past Family History Father Family Medical History: Cancer Additional Family Medical History / Comment(s): COLON CANCER. Father is . Mother Family Medical History: Cancer Additional Family Medical History / Comment(s): Mother is . Liver cancer. Medications and Allergies Home Medications Medication Instructions Recorded Confirmed Type Atorvastatin [Lipitor] 40 mg PO HS #30 tab 11/09/17 02/19/23 Rx Clopidogrel Bisulfate [Plavix] 75 mg PO DAILY #30 tab 01/28/18 02/19/23 Rx Metoprolol Tartrate [Lopressor] 25 mg PO BID #0 05/22/18 02/19/23 Rx HYDROcodone/APAP 5-325MG [[place] 1 tab PO TID PRN 02/19/23 02/19/23 History 5-325] Allergies Allergy/AdvReac Type Severity Reaction Status Date / Time amoxicillin Allergy Dyspnea Verified 02/19/23 12:14 nickel AdvReac Rash/Hives Verified 02/19/23 12:14 Penicillins AdvReac Dyspnea Verified 02/19/23 12:14 Surgical - Exam - General no distress, no pain - Eyes normal ocular movement, no pale - ENT normal nares, normal mucosa - Respiratory normal expansion, normal respiratory effort - Abdomen Abdomen: soft, non tender - Psychiatric oriented to time, oriented to person, oriented to place Assessment and Plan Assessment: OR for TURBT
[~2023-02-24 11:46] MED LIST changes: +CIPROFLOXACIN/DEXTROSE PMX 400 MG in DEXTROSE/WATER 1 200ML.BAG IVPB PRN; +DEXAMETHASONE SOD PHOSPHATE 4 MG/ML 1 ML VIAL IV ONE; +HYDROmorphone 0.5 MG/0.5 ML SYRINGE IVP PRN; +ONDANSETRON 4 MG/2 ML VIAL IVP ONE; +droPERidol 5 MG/2 ML VIAL IVP ONE
[2023-02-24] MEDS ORDERED: MIDAZOLAM 2 MG/2 ML VIAL IVP ONE (13:04)
[2023-02-24] MEDS ORDERED: PROPOFOL 10 MG/ML 20 ML VIAL IV ONE (14:21)
[2023-02-24] MEDS ORDERED: ONDANSETRON 4 MG/2 ML VIAL ONE (14:21)
[2023-02-24] MEDS ORDERED: LIDOCAINE 4% LTA KIT (4 ML) TOPICAL ONE (14:21)
[2023-02-24] MEDS ORDERED: fentaNYL (PF) 50 MCG/ML 2 ML AMP ONE (14:21)
[2023-02-24] MEDS ORDERED: LIDOCAINE 1% INJ 10MG/ML (20 ML MDV) ONE (14:21)
[2023-02-24] MEDS ORDERED: ePHEDrine 50 MG/ML 1 ML VIAL ONE (14:21)
[2023-02-24] MEDS ORDERED: SUCCINYLCHOLINE CHLORIDE 200 MG/10 ML VIAL IV ONE (14:21)
[2023-02-24 15:21] VITALS: TEMP 98
--- NOTE | 2023-02-24 15:22 | P.OP ---
Date of Procedure: 02/24/23 Preoperative Diagnosis: Bladder cancer Postoperative Diagnosis: Same Procedure(s) Performed: TURBT (medium) Implants: none Anesthesia: DERICK Surgeon: Gilmar Gambino Estimated Blood Loss (ml): 5 Pathology: other (bladder tumor) Condition: stable Disposition: PACU Indications for Procedure: This is a 63-year-old female with history of CIS of the bladder, she is status post TURBT followed by induction BCG. Underwent a cystoscopy that showed a 3 cm focal erythematous patch along the posterior bladder wall. Discussed this is concerning for CIS. Discussed recommend proceeding with TURBT. Discussed risk of bleeding, infection and bladder perforation. Operative Findings: Red erythematous patch along the posterior bladder wall Description of Procedure: Patient brought to the operating room, general anesthesia was induced. She was prepped and draped in sterile fashion and placed in dorsal lithotomy position. Resectoscope fitted 25-Ivorian sheath was inserted per urethra, cystoscopy was performed which showed a focal erythematous flat patch across the posterior bladder wall measured 3 cm. Using the bipolar resectoscope the erythematous patch was resected down, area of resection was fulgurated. All tumor specimen was irrigated out. Repeat cystoscopy showed no additional lesion in the bladder or evidence of bleeding or bladder perforation. This time the resectoscope was withdrawn and a 20-Ivorian Koch was placed with return of clear urine. Patient tolerated procedure well was taken to recovery in stable condition
[2023-02-24 16:19] VITALS: BP 152/82; PULSE 71; RESP 16
== END 2023-02-24 16:36 | disposition home or self-care (01) ==
LOC: OR 11:46
PROVIDERS: ATTEND Urology
DX: N30.90 Cystitis, unspecified without hematuria (principal); J44.9 Chronic obstructive pulmonary disease, unspecified; M79.7 Fibromyalgia; K21.9 Gastro-esophageal reflux disease without esophagitis; I10 Essential (primary) hypertension; E78.5 Hyperlipidemia, unspecified; M19.90 Unspecified osteoarthritis, unspecified site; Z98.51 Tubal ligation status; Z90.49 Acquired absence of other specified parts of digestive tract; Z98.890 Other specified postprocedural states; Z87.891 Personal history of nicotine dependence; Z79.899 Other long term (current) drug therapy; Z88.0 Allergy status to penicillin; Z86.73 Personal history of transient ischemic attack (TIA), and cerebral infarction without residual deficits
CPT/HCPCS: 52235; 88307; J2250; J0330; J1100; J2405; J2001; J3010; J0744; J2704

== ENCOUNTER 2023-03-03 09:04 | Day surgery (SDC) | payer MEDICARE, OTHER ==
[2023-02-27 14:40] VITALS: BMI 26.9
[~2023-03-03 09:04] MED LIST changes: -CIPROFLOXACIN/DEXTROSE PMX 400 MG in DEXTROSE/WATER 1 200ML.BAG IVPB PRN; -DEXAMETHASONE SOD PHOSPHATE 4 MG/ML 1 ML VIAL IV ONE; -HYDROmorphone 0.5 MG/0.5 ML SYRINGE IVP PRN; -ONDANSETRON 4 MG/2 ML VIAL IVP ONE; -droPERidol 5 MG/2 ML VIAL IVP ONE
[2023-03-03] MEDS ORDERED: LACTATED RINGERS 1,000 ML IV ONE ×2 (09:49)
[2023-03-03 10:20] VITALS: TEMP 97
[2023-03-03] MEDS ORDERED: LIDOCAINE 1% INJ 10MG/ML (20 ML MDV) ONE (10:40)
[2023-03-03] MEDS ORDERED: PROPOFOL 10 MG/ML 20 ML VIAL IV ONE (10:40)
--- NOTE | 2023-03-03 10:59 | P.PCN ---
Date of Procedure: 03/03/23 Procedure(s) Performed: BRIEF HISTORY: Patient is a []-year-old pleasant [] scheduled for an elective colonoscopy as a part of this value should prior history of colon polyps. Last colonoscopy was in August 2021 and she was noted to have a l residual polyp in the ascending colon and biopsy revealed adenoma. She is scheduled for follow-up colonoscopy today. PROCEDURE PERFORMED: Colonoscopy with snare polypectomy. PREOPERATIVE DIAGNOSIS: History of colon polyps. IV sedation per Anesthesia. PROCEDURE: After informed consent was obtained, the patient, was brought into the endoscopy unit. IV sedation was administered by Anesthesia under continuous monitoring. Digital rectal examination was normal. Initially the Olympus CF-160 flexible video colonoscope was then inserted in the rectum, gradually advanced into the cecum without any difficulty. Careful examination was performed as the scope was gradually being withdrawn. Ileocecal valve and the appendiceal orifice were visualized and appeared normal. Prep was excellent. Mucosa of the cecum, ascending colon, transverse colon appeared normal. In the descending colon there was a 5 mm polyp removed by snare polypectomy. In the sigmoid: There was a 6 mm removed by snare polypectomy. Rest of the, descending colon, sigmoid colon, and rectum appeared normal. Retroflexion was performed in the rectum and no lesions were seen. The patient tolerated the procedure well. IMPRESSION: 5 mm descending colon polyp status post cold snare polypectomy 6 mm distal sigmoid polyp status post snare polypectomy RECOMMENDATIONS: Findings of this examination were discussed with the patient as well as a family. She was advised to follow with the biopsy results. If the biopsy results adenoma she can have a repeat colonoscopy in 3 years..
[2023-03-03 11:06] VITALS: RESP 16
[2023-03-03 11:28] VITALS: BP 99/67; PULSE 70
== END 2023-03-03 11:40 | disposition home or self-care (01) ==
LOC: ORWHC2ENDO 09:04
PROVIDERS: ATTEND Internal Medicine Gastroenterology
DX: Z12.11 Encounter for screening for malignant neoplasm of colon (principal); D12.5 Benign neoplasm of sigmoid colon; D12.4 Benign neoplasm of descending colon; I10 Essential (primary) hypertension; E78.5 Hyperlipidemia, unspecified; J44.9 Chronic obstructive pulmonary disease, unspecified; M79.7 Fibromyalgia; I63.9 Cerebral infarction, unspecified; Z88.0 Allergy status to penicillin; Z88.2 Allergy status to sulfonamides; Z79.891 Long term (current) use of opiate analgesic; Z79.02 Long term (current) use of antithrombotics/antiplatelets; Z79.2 Long term (current) use of antibiotics; Z86.010 Personal history of colon polyps
CPT/HCPCS: 88305; 45385; J2001; J2704

== ENCOUNTER → 2023-04-15 | Outpatient (CLI) | payer MEDICARE, OTHER ==
--- NOTE | 2023-04-15 13:35 | US ---
EXAMINATION TYPE: US pelvis complete transvag DATE OF EXAM: 04/15/2023 COMPARISON: NONE CLINICAL INDICATION: Female, 63 years old with history of N94.89 OTH COND ASSOC W FEMALE GENITAL ORGA NS AND; Left pelvic pain TECHNIQUE: Transvaginal (TV) and Transabdominal (TA) . Transabdominal sonographic images of the pel vis were acquired. Transvaginal sonographic images were medically necessary to better assess the fol lowing anatomy: per order Date of LMP: unknown EXAM MEASUREMENTS: Uterus: 5.8 x 2.5 x 3.7 cm Endometrial Stripe: 1.1 cm Right Ovary: unable to visualize Left Ovary: unable to visualize 1. Uterus: Anteverted Nabothian cysts 2. Endometrium: appears thickened 3. Right Ovary: Obscured by overlying bowel gas 4. Left Ovary: Obscured by overlying bowel gas 5. Bilateral Adnexa: wnl 6. Posterior cul-de-sac: wnl IMPRESSION: 1. Prominent endometrial stripe at 1.1 cm.
== END | disposition home or self-care (01) ==
LOC: RADUSWWP 12:54
PROVIDERS: ATTEND Family Medicine
DX: N94.89 Other specified conditions associated with female genital organs and menstrual cycle (principal)
CPT/HCPCS: 76830; 76856

== ENCOUNTER 2023-04-18 00:07 | Emergency (ER) | payer MEDICARE, OTHER ==
[2023-04-18 00:25] VITALS: RESP 18; TEMP 98.4
[2023-04-18 01:46] LABS: Basophils % (A) 1 %; Eosinophils % (A) 1 %; HCT 38.6 % (34.0-46.0); HGB 12.9 gm/dL (11.4-16.0); Lymphocytes # (A) 1.1 k/uL (1.0-4.8); Lymphocytes % (A) 25 %; MCHC 33.4 g/dL (31.0-37.0); MCV 89.6 fL (80.0-100.0); Mean Platelet Volume 7.4; Monocytes # (A) 0.4 k/uL (0-1.0); Monocytes % (A) 10 %; Neutrophils # (A) 2.8 k/uL (1.3-7.7); Neutrophils % (A) 62 %; Platelet Count 248 k/uL (150-450); RBC 4.31 m/uL (3.80-5.40); RDW 12.8 % (11.5-15.5); WBC 4.6 k/uL (3.8-10.6)
[2023-04-18 01:53] LABS: Appearance,Urine Cloudy (Clear); Bacteria,Urine Occasional /hpf; Bilirubin,Urine Negative (Negative); Blood,Urine Large (Negative); Color,Urine Yellow; Glucose,Urine (UA) Negative (Negative); Hyaline Casts,Urine 5 /lpf (0-2); Ketones,Urine Negative (Negative); Leukocyte Esterase,Urine Large (Negative); Mucus,Urine Few /hpf; Nitrite,Urine Negative (Negative); PH, Urine 5.5 (5.0-8.0); Protein,Urine 1+ (Negative); RBC,Urine 33 /hpf (0-5); Specific Gravity,Urine 1.025 (1.001-1.035); Squamous Epithelial Cell,Urine 7 /hpf (0-4); Urobilinogen,Urine <2.0 mg/dL (<2.0); WBC,Urine >182 /hpf (0-5)
[2023-04-18 01:57] LABS: ALT 48 U/L (4-34); AST 32 U/L (14-36); African American GFR (CKD) 70 (>60 ml/min/1.73 sqM); Albumin 3.5 g/dL (3.5-5.0); Alkaline Phosphatase 99 U/L (38-126); Anion Gap 9 mmol/L; Blood Urea Nitrogen 26 mg/dL (7-17); Calcium 8.8 mg/dL (8.4-10.2); Carbon Dioxide 25 mmol/L (22-30); Chloride 105 mmol/L (98-107); Glucose 133 mg/dL (74-99); Non-African American GFR(CKD) 61 (>60 ml/min/1.73 sqM); Potassium 4.2 mmol/L (3.5-5.1); Sodium 139 mmol/L (137-145); Total Bilirubin 0.6 mg/dL (0.2-1.3); Total Protein 6.6 g/dL (6.3-8.2)
[2023-04-18] MEDS ORDERED: KETOROLAC 15 MG/ML 1 ML VIAL IVP STA (02:52)
--- NOTE | 2023-04-18 02:52 | ED ---
General Adult HPI - General Chief complaint: Urogenital Stated complaint: Hematuria after bladder cancer treatment Time Seen by Provider: 04/18/23 00:32 Source: patient, RN notes reviewed Mode of arrival: ambulatory Limitations: no limitations - History of Present Illness Initial comments: 63-year-old female with past medical history significant for bladder cancer presents the emergency department with a chief complaint of hematuria. Patient received a second dose of bladder irrigation chemotherapy today. She reports slight tinge of blood after she urinates. She is a patient of Dr. hannah. She does report she takes Plavix. She denies any recent nausea, vomiting, dysuria, vaginal bleeding or cramping or low back pain. - Related Data Home Medications Medication Instructions Recorded Confirmed HYDROcodone/APAP 5-325MG [[place] 1 tab PO TID PRN 02/19/23 02/27/23 5-325] Nitrofurantoin Monohyd/M-Cryst 100 mg PO Q12HR 02/24/23 02/27/23 [Macrobid] traMADol HCL 50 mg PO Q6H 02/24/23 02/27/23 Previous Rx's Medication Instructions Recorded Atorvastatin [Lipitor] 40 mg PO HS #30 tab 11/09/17 Clopidogrel Bisulfate [Plavix] 75 mg PO DAILY #30 tab 01/28/18 Metoprolol Tartrate [Lopressor] 25 mg PO BID #0 05/22/18 Allergies Allergy/AdvReac Type Severity Reaction Status Date / Time amoxicillin Allergy Dyspnea Verified 04/18/23 00:12 Sulfa (Sulfonamide Allergy Dyspnea Verified 04/18/23 00:12 Antibiotics) nickel AdvReac Rash/Hives Verified 04/18/23 00:12 Penicillins AdvReac Dyspnea Verified 04/18/23 00:12 Review of Systems ROS Statement: Those systems with pertinent positive or pertinent negative responses have been documented in the HPI. ROS Other: All systems not noted in ROS Statement are negative. Past Medical History Past Medical History: COPD, CVA/TIA, Fibromyalgia, Hyperlipidemia, Hypertension, Osteoarthritis (OA), Vascular Disorder Additional Past Medical History / Comment(s): 11/04/17 CVA, syncope and slurred speech which has resolved,stenosed,Reflex Sympathetic Dystrophy L hand, benign colon polyps. NEUROPATHY History of Any Multi-Drug Resistant Organisms: None Reported Past Surgical History: Appendectomy, Back Surgery, Breast Surgery, Cholecystectomy, Tubal Ligation Additional Past Surgical History / Comment(s): 12/29/17 L caratid endartectomy at [facility], LEFT BREAST BX/LUMPECTOMY BENIGN, COLONOSCOPIES WITH BENIGN POLYPECTOMIES, NERVE BLOCK TO NECK X3, LOW BACK SURGERY, NEURO STIMULATOR IN LOW BACK NOT CONNECTED TO WIRES-BOX REMOVED Past Anesthesia/Blood Transfusion Reactions: No Reported Reaction Additional Past Anesthesia/Blood Transfusion Reaction / Comment(s): Has never had blood transfusion. Past Psychological History: No Psychological Hx Reported Smoking Status: Former smoker Past Alcohol Use History: None Reported Past Drug Use History: None Reported - Past Family History Father Family Medical History: Cancer Additional Family Medical History / Comment(s): COLON CANCER. Father is . Mother Family Medical History: Cancer Additional Family Medical History / Comment(s): Mother is . Liver cancer. General Exam - General Exam Comments Initial Comments: General: Alert, in no acute distress Head: atraumatic normocephalic. Eyes PERRL, EOMI intact, mucous membranes moist Respiratory: Lungs clear to auscultation bilaterally Cardiovascular: Regular rate and rhythm Abdominal: Soft without guarding or rebound Extremities: Normal inspection with full range of motion and normal capillary refill Neuroogic: alert and oriented 3, CN II-XII intact, able to ambulate with steady gait Skin: warm dry and intact with normal color Limitations: no limitations Course Vital Signs 04/18/23 04/18/23 00:08 03:04 Temperature 98.4 F Pulse Rate 66 77 Respiratory 18 18 Rate Blood Pressure 119/77 134/87 O2 Sat by Pulse 99 99 Oximetry - Reevaluation(s) Reevaluation #1: 04/18/23 02:45: Discussed with Dr. hannah, urologist who please patient is stable for discharge and follow-up with her with his office on Thursday04/20/2023 04/18/23 02:50: Re-Evaluated. Patient updated on results. Agreeable to plan to discharge home. Medical Decision Making - Medical Decision Making Was pt. sent in by a medical professional or institution (, PA, MATZO FORMING MACHINE OPERATOR, urgent care, hospital, or senior care...) When possible be specific @ -[No] Did you speak to anyone other than the patient for history (EMS, parent, family, police, friend...)? What history was obtained from this source @ - Did you review nursing and triage notes (agree or disagree)? Why? @ -[I reviewed and agree with nursing and triage notes] Were old charts reviewed (outside hosp., previous admission, EMS record, old EKG, old radiological studies, urgent care reports/EKG's, senior care records)? Report findings @ 04/15/2023 Differential Diagnosis (chest pain, altered mental status, abdominal pain women, abdominal pain men, vaginal bleeding, weakness, fever, dyspnea, syncope, headache, dizziness, GI bleed, back pain, seizure, CVA, palpatations, mental health, musculoskeletal)? @ -[not applicable] EKG interpreted by me (3pts min.). @ -[As above] X-rays interpreted by me (1pt min.). @ -[None done] CT interpreted by me (1pt min.). @ -[None done] U/S interpreted by me (1pt. min.). @ -[None done] What testing was considered but not performed or refused? (CT, X-rays, U/S, labs)? Why? @ -[None] What meds were considered but not given or refused? Why? @ -[None] Did you discuss the management of the patient with other professionals (professionals i.e. , PA, MATZO FORMING MACHINE OPERATOR, lab, RT, psych nurse, social media manager, automation mechanic, teacher, access control officer, case technician)? Give summary @ Dr. Gambino, who recommends discharging the patient follow-up with her on Thursday. Was smoking cessation discussed for >3mins.? @ -[No] Was critical care preformed (if so, how long)? @ -[No] Were there social determinants of health that impacted care today? How? (Homelessness, low income, unemployed, alcoholism, drug addiction, transportation, low edu. Level, literacy, decrease access to med. care, correction, rehab)? @ -[No] Was there de-escalation of care discussed even if they declined (Discuss DNR or withdrawal of care, Hospice)? DNR status @ -[No] What co-morbidities impacted this encounter? (DM, HTN, Smoking, COPD, CAD, Cancer, CVA, ARF, Chemo, Hep., AIDS, mental health diagnosis, sleep apnea, morbid obesity)? @ -[None] Was patient admitted / discharged? Hospital course, mention meds given and route, prescriptions, significant lab abnormalities, going to OR and other pertinent info. @ -Discharged. This is a 63-year-old female who presents the emergency department with hematuria. Patient had a thorough history and physical exam performed. Vital signs are stable. Heart rate regular rate and rhythm, lungs clear to auscultation bilaterally abdomen soft and nontender. Patient had laboratory studies which were unremarkable. Urinalysis reveals WBCs and 33 rbc's. Urine culture is pending. Discussed with Dr. hannah urology on- call who recommends discharging the patient will follow-up with her on Thursday. Return precautions discussed at length. Patient provided Toradol. Discharged in stable condition. Case discussed with Dr. Novoa, ED attending who agrees with plan of care Undiagnosed new problem with uncertain prognosis? @ -[No] Drug Therapy requiring intensive monitoring for toxicity (Heparin, Nitro, Insulin, Cardizem)? @ -[No] Were any procedures done? @ -[No] Diagnosis/symptom? @ -Hematuria - History of Bladder Cancer Acute, or Chronic, or Acute on Chronic? @ -Acute Uncomplicated (without systemic symptoms) or Complicated (systemic symptoms)? @ -Uncomplicated Side effects of treatment? @ -[No] Exacerbation, Progression, or Severe Exacerbation? @ -[No] Poses a threat to life or bodily function? How? (Chest pain, [place], [place], pneumonia, PE, COPD, DKA, ARF, appy, cholecystitis, CVA, Diverticulitis, Homicidal, Ria cidal, threat to staff... and all critical care pts) @ -Low likelihood - Lab Data Result diagrams: 04/18/23 01:05 04/18/23 01:05 Lab Results 04/18/23 04/18/23 04/18/23 Range/Units 01:05 01:05 01:05 WBC 4.6 (3.8-10.6) k/uL RBC 4.31 (3.80-5.40) m/uL Hgb 12.9 (11.4-16.0) gm/dL Hct 38.6 (34.0-46.0) % MCV 89.6 (80.0-100.0) fL MCH 30.0 (25.0-35.0) pg MCHC 33.4 (31.0-37.0) g/dL RDW 12.8 (11.5-15.5) % Plt Count 248 (150-450) k/uL MPV 7.4 Neutrophils % 62 % Lymphocytes % 25 % Monocytes % 10 % Eosinophils % 1 % Basophils % 1 % Neutrophils # 2.8 (1.3-7.7) k/uL Lymphocytes # 1.1 (1.0-4.8) k/uL Monocytes # 0.4 (0-1.0) k/uL Eosinophils # 0.0 (0-0.7) k/uL Basophils # 0.0 (0-0.2) k/uL Sodium 139 (137-145) mmol/L Potassium 4.2 (3.5-5.1) mmol/L Chloride 105 (98-107) mmol/L Carbon Dioxide 25 (22-30) mmol/L Anion Gap 9 mmol/L BUN 26 H (7-17) mg/dL Creatinine 0.99 (0.52-1.04) mg/dL Est GFR (CKD-EPI)AfAm 70 (>60 ml/min/1.73 sqM) Est GFR (CKD-EPI)NonAf 61 (>60 ml/min/1.73 sqM) Glucose 133 H (74-99) mg/dL Calcium 8.8 (8.4-10.2) mg/dL Total Bilirubin 0.6 (0.2-1.3) mg/dL AST 32 (14-36) U/L ALT 48 H (4-34) U/L Alkaline Phosphatase 99 (38-126) U/L Total Protein 6.6 (6.3-8.2) g/dL Albumin 3.5 (3.5-5.0) g/dL Urine Color Yellow Urine Appearance Cloudy H (Clear) Urine pH 5.5 (5.0-8.0) Ur Specific [place] 1.025 (1.001-1.035) Urine Protein 1+ H (Negative) Urine Glucose (UA) Negative (Negative) Urine Ketones Negative (Negative) Urine Blood Large H (Negative) Urine Nitrite Negative (Negative) Urine Bilirubin Negative (Negative) Urine Urobilinogen <2.0 (<2.0) mg/dL Ur Leukocyte Esterase Large H (Negative) Urine RBC 33 H (0-5) /hpf Urine WBC >182 H (0-5) /hpf Urine WBC Clumps Few H (None) /hpf Ur Squamous Epith Cells 7 H (0-4) /hpf Urine Bacteria Occasional H (None) /hpf Hyaline Casts 5 H (0-2) /lpf Urine Mucus Few H (None) /hpf Disposition Clinical Impression: Hematuria Disposition: HOME SELF-CARE Condition: Stable Instructions (If sedation given, give patient instructions): Hematuria (ED) Additional Instructions: PLease follow up with Dr. Gambino on 04/20/2023 Please return to the nearest emergency department if worsening bleeding heavy clots or dizziness or lightheadedness develop Is patient prescribed a controlled substance at d/c from ED?: No Referrals: Varun Little DO [Primary Care Provider] - 1-2 days Gilmar Gambino MD [STAFF PHYSICIAN] - 1-2 days Time of Disposition: 02:52
[2023-04-18 03:09] VITALS: BP 134/87; PULSE 77
== END 2023-04-18 03:04 | disposition home or self-care (01) ==
LOC: EC 00:07
DX: R31.9 Hematuria, unspecified (principal); B96.89 Other specified bacterial agents as the cause of diseases classified elsewhere; E78.5 Hyperlipidemia, unspecified; I10 Essential (primary) hypertension; J44.9 Chronic obstructive pulmonary disease, unspecified; M19.90 Unspecified osteoarthritis, unspecified site; Z86.73 Personal history of transient ischemic attack (TIA), and cerebral infarction without residual deficits; Z87.891 Personal history of nicotine dependence; Z88.0 Allergy status to penicillin; Z88.2 Allergy status to sulfonamides; Z88.8 Allergy status to other drugs, medicaments and biological substances; Z79.02 Long term (current) use of antithrombotics/antiplatelets; Z79.899 Other long term (current) drug therapy
CPT/HCPCS: 36415; 80053; 85025; 81001; 87086; 99284; 96374; J1885

== ENCOUNTER → 2023-05-08 | Outpatient (CLI) | payer MEDICARE, OTHER ==
--- NOTE | 2023-05-08 13:35 | US ---
EXAMINATION TYPE: US kidneys/renal and bladder DATE OF EXAM: 05/08/2023 COMPARISON: 04/15/2023 CLINICAL INDICATION: Female, 63 years old with history of R94.4 ABNORMAL RESULTS OF KIDNEY FUNCTION S TUDIES; Abnormal labs. Hx bladder cancer with lesion removal September 2022. EXAM MEASUREMENTS: Right Kidney: 8.4 x 4.2 x 4.1 cm Left Kidney: 9.1 x 3.9 x 4.7 cm Right Kidney: No hydronephrosis or masses seen Left Kidney: No hydronephrosis or masses seen Bladder: Moderately distended, anechoic. Wall thickness appears unremarkable Bilateral Jets seen IMPRESSION: No suspicious changes to suggest recurrent or metastatic bladder cancer within the [id number].
== END | disposition home or self-care (01) ==
LOC: RADUSWWP 12:49
PROVIDERS: ATTEND Family Medicine
DX: R94.4 Abnormal results of kidney function studies (principal); Z85.51 Personal history of malignant neoplasm of bladder
CPT/HCPCS: 76770

== ENCOUNTER → 2023-08-24 | Outpatient (CLI) | payer MEDICARE, OTHER ==
--- NOTE | 2023-08-25 19:38 | MM ---
Reason for Exam: Screening (asymptomatic). Last screening mammogram was performed 12 month(s) ago. Patient History: Menarche at age 13. First Full-Term at age 17. Postmenopausal. Patient has history of breast feeding. Excisional Biopsy on the Left side. 07/16/2020, Benign Core Biopsy on the left side. Risk Values: Jaki 5 year model risk: 1.7%. NCI Lifetime model risk: 7.2%. Prior Study Comparison: 06/13/2020 Left Diagnostic Mammogram, [facility]. 12/24/2020 Bilateral Diagnostic Mammogram, [facility]. 08/22/2022 Bilateral MG 3D screening mammo w/cad, [facility]. Tissue Density: There are scattered areas of fibroglandular density. Findings: Analyzed By CAD. Benign bilateral round calcifications. There is no suspicious group of microcalcifications or new suspicious mass in either breast. Overall Assessment: Benign, BI-RAD 2 Management: Screening Mammogram of both breasts in 1 year. . Patient should continue monthly self-breast exams. A clinical breast exam by your physician is recommended on an annual basis. This exam should not preclude additional follow-up of suspicious palpable abnormalities. Note on Jaki scores and lifetime risk: 1. A Jaki score greater than 3% is considered moderate risk. If this is the case, consider specialist referral to assess eligibility for a risk reducing agent. 2. If overall lifetime risk for the development of breast cancer is 20% or higher, the patient may qualify for future screening with alternating mammogram and breast MRI. Electronically signed and approved by: Asa Galindo M.D. Radiologist
== END | disposition home or self-care (01) ==
LOC: RADMAMWWP 11:33
PROVIDERS: ATTEND Obstetrics & Gynecology
DX: Z12.31 Encounter for screening mammogram for malignant neoplasm of breast (principal); Z78.0 Asymptomatic menopausal state
CPT/HCPCS: 77063; 77067

== ENCOUNTER → 2023-10-26 | Outpatient (CLI) | payer MEDICARE, OTHER ==
[2023-10-26 14:48] LABS: Basophils # (A) 0.07 X 10*3/uL (0.00-0.10); Basophils % (A) 0.8 %; Eosinophils # (A) 0.16 X 10*3/uL (0.04-0.35); Eosinophils % (A) 1.7 %; HCT 43.1 % (37.2-46.3); HGB 13.6 g/dL (12.0-15.0); Lymphocytes # (A) 2.12 X 10*3/uL (0.90-5.00); Lymphocytes % (A) 22.7 %; MCH 29.8 pg (27.0-32.0); MCHC 31.6 g/dL (32.0-37.0); MCV 94.5 FL (80.0-97.0); Mean Platelet Volume 10.6 FL (9.5-12.2); Monocytes % (A) 6.4 %; NRBC Per 100 WBC 0 X 10*3/uL (0.00-0.01); Neutrophils # (A) 6.35 X 10*3/uL (1.80-7.70); Neutrophils % (A) 68.2 %; Platelet Count 379 X 10*3/uL (140-440); RBC 4.56 X 10*6/uL (4.10-5.20); RDW 13.2 % (11.5-14.5); WBC 9.32 X 10*3/uL (4.50-10.00)
[2023-10-26 15:04] LABS: Appearance,Urine Turbid (Clear); Bilirubin,Urine Small (Negative); Blood,Urine Negative (Negative); Color,Urine Dark Yellow (Yellow); Ketones,Urine Trace (Negative); Nitrite,Urine Negative (Negative); Specific Gravity,Urine 1.025 (1.001-1.030)
[2023-10-26 15:47] LABS: Bacteria,Urine 2+ (None Seen)
[2023-10-26 15:51] LABS: % Iron Saturation 35.44 (12.00-45.00); Albumin 4.4 g/dL (3.8-4.9); Blood Urea Nitrogen 16.3 mg/dL (9.0-27.0); Carbon Dioxide 26.5 mmol/L (21.6-31.8); Chloride 105 mmol/L (96-109); Glucose 146 mg/dL (70-110); Iron 118 UG/DL (50-170); Magnesium 1.8 mg/dL (1.5-2.4); Phosphorus 3.2 mg/dL (2.4-5.1); Potassium 4.5 mmol/L (3.5-5.5); Sodium 142 mmol/L (135-145); Total Iron Binding Capacity 333 UG/DL (228-460)
[2023-10-26 16:25] LABS: Free Kappa Lt Chain Qnt, Serum 4.71 mg/dL (0.33-1.94); Free Lambda Lt Chain Qnt, Seru 2.04 mg/dL (0.57-2.63)
== END | disposition home or self-care (01) ==
LOC: LABWHC1 09:40
PROVIDERS: ATTEND Nurse Practitioner Family
DX: N18.2 Chronic kidney disease, stage 2 (mild) (principal); D63.1 Anemia in chronic kidney disease; N39.0 Urinary tract infection, site not specified; E55.9 Vitamin D deficiency, unspecified; R80.9 Proteinuria, unspecified
CPT/HCPCS: 36415; 80048; 81001; 82040; 82043; 82306; 82570; 82728; 83540; 83550; 83735; 83883; 84100; 85025; 86334; 86335

== ENCOUNTER → 2023-12-03 | Outpatient (CLI) | payer MEDICARE, OTHER ==
--- NOTE | 2023-12-03 11:38 | XR ---
EXAMINATION TYPE: XR bone survey complete DATE OF EXAM: 12/03/2023 11:22 AM CLINICAL INDICATION:Female, 63 years old with history of I67.89 OTHER CEREBROVASCULAR DISEASE M12.9 A RTHROP; [facility] COMPARISON: 02/23/2023 02/06/2023 TECHNIQUE: Several radiographics images of the axial and appendicular spine were obtained in multipl e projections. FINDINGS: Skull: No lytic or sclerotic lesions are identified. Spine: No lytic or sclerotic lesions are identified. The pedicles are intact. There are no fractures, dislocations or subluxations. Multilevel degeneration changes throughout the spine with osteophyte f ormation disc space narrowing and facet arthropathy. Findings worse in the lumbar spine with severe d egeneration. Wedging of L1 vertebral body with at least 25% height loss. Chest: No lytic or sclerotic lesions are identified. The ribs have a normal appearance. Abdomen/Pelvis: No lytic or sclerotic lesions are identified. Surgical clips in the right upper quadr ant. Nonspecific bowel gas pattern. Atherosclerosis of the arterial vasculature Extremities: No lytic or sclerotic lesions are identified. Mild degeneration changes of the shoulders with osteophyte formation of the glenohumeral and acromioclavicular joints as well as the superior a cetabulum of the hips. IMPRESSION: 1. No suspicious lytic or sclerotic lesions. 2. Severe degeneration changes of the lumbar spine.
== END | disposition home or self-care (01) ==
LOC: RADXRMAIN 10:13
PROVIDERS: ATTEND Internal Medicine Hematology & Oncology
DX: I67.89 Other cerebrovascular disease (principal); M12.9 Arthropathy, unspecified; J44.9 Chronic obstructive pulmonary disease, unspecified; E11.9 Type 2 diabetes mellitus without complications; M51.36 Other intervertebral disc degeneration, lumbar region
CPT/HCPCS: 77075

== ENCOUNTER → 2024-01-26 | Outpatient (CLI) | payer MEDICARE, OTHER ==
[2024-01-26 15:20] LABS: Appearance,Urine Clear (Clear); Bilirubin,Urine Negative (Negative); Blood,Urine Negative (Negative); Color,Urine Yellow (Yellow); Ketones,Urine Negative (Negative); Nitrite,Urine Negative (Negative); Specific Gravity,Urine 1.021 (1.001-1.030)
[2024-01-26 15:26] LABS: Bacteria,Urine 2+ (None Seen)
[2024-01-26 16:40] LABS: Basophils # (A) 0.07 X 10*3/uL (0.00-0.10); Basophils % (A) 0.9 %; Eosinophils # (A) 0.21 X 10*3/uL (0.04-0.35); Eosinophils % (A) 2.6 %; HCT 43.8 % (37.2-46.3); Lymphocytes # (A) 2.11 X 10*3/uL (0.90-5.00); MCH 29.9 pg (27.0-32.0); MCV 93.6 FL (80.0-97.0); Monocytes # (A) 0.73 X 10*3/uL (0.20-1.00); NRBC Per 100 WBC 0 X 10*3/uL (0.00-0.01); Neutrophils # (A) 4.98 X 10*3/uL (1.80-7.70); Neutrophils % (A) 61.4 %; Platelet Count 366 X 10*3/uL (140-440); RBC 4.68 X 10*6/uL (4.10-5.20); RDW 12.2 % (11.5-14.5); WBC 8.11 X 10*3/uL (4.50-10.00)
[2024-01-26 16:51] LABS: % Iron Saturation 27.38 (12.00-45.00); Albumin 4.3 g/dL (3.8-4.9); BUN/Creat Ratio 9.78 Ratio (12.00-20.00); Blood Urea Nitrogen 8.8 mg/dL (9.0-27.0); Calcium 9.6 mg/dL (8.7-10.3); Carbon Dioxide 24.5 mmol/L (21.6-31.8); Chloride 106 mmol/L (96-109); Ferritin 73.5 ng/mL (10.0-291.0); Glucose 108 mg/dL (70-110); Iron 92 UG/DL (50-170); Magnesium 1.8 mg/dL (1.5-2.4); Phosphorus 3.2 mg/dL (2.4-5.1); Potassium 4.8 mmol/L (3.5-5.5); Sodium 142 mmol/L (135-145); Total Iron Binding Capacity 336 UG/DL (228-460)
[2024-01-26 22:04] LABS: Microalbumin Creatinine Ratio <6 mg/g Cr (0-30)
== END | disposition home or self-care (01) ==
LOC: LABWHC1 10:35
PROVIDERS: ATTEND Internal Medicine Nephrology
DX: N18.2 Chronic kidney disease, stage 2 (mild) (principal); D63.1 Anemia in chronic kidney disease; N25.81 Secondary hyperparathyroidism of renal origin; E55.9 Vitamin D deficiency, unspecified; N39.0 Urinary tract infection, site not specified
CPT/HCPCS: 36415; 80048; 81001; 82040; 82043; 82306; 82570; 82728; 83540; 83550; 83735; 83970; 84100; 85025

== ENCOUNTER → 2024-04-21 | Outpatient (CLI) | payer MEDICARE, OTHER | END | disposition home or self-care (01) | LOC: LABWHC1 09:26 | PROVIDERS: ATTEND Dermatology MOHS-Micrographic Surgery | DX: L70.0 Acne vulgaris (principal) | CPT/HCPCS: 36415; 82465; 84450; 84460; 84478 ==

== ENCOUNTER → 2024-06-28 | Outpatient (CLI) | payer MEDICARE, OTHER | END | disposition home or self-care (01) | LOC: LABWHC1 09:03 | PROVIDERS: ATTEND Physician Assistant Medical | DX: L70.0 Acne vulgaris (principal); Z79.899 Other long term (current) drug therapy | CPT/HCPCS: 36415; 82465; 84450; 84460; 84478 ==

== ENCOUNTER → 2024-10-07 | Outpatient (CLI) | payer MEDICARE, OTHER ==
--- NOTE | 2024-10-10 07:11 | MM ---
Reason for Exam: Screening (asymptomatic). Last mammogram was performed 1 year(s) and 2 month(s) ago. Patient History: Menarche at age 13. First Full-Term at age 17. Postmenopausal. Patient has history of breast feeding. Excisional Biopsy on the Left side. 07/16/2020, Benign Core Biopsy on the left side. Risk Values: Jaki 5 year model risk: 1.7%. NCI Lifetime model risk: 7.0%. Prior Study Comparison: 12/24/2020 Bilateral Diagnostic Mammogram, [facility]. 08/22/2022 Bilateral MG 3D screening mammo w/cad, [facility]. 08/24/2023 Bilateral MG 3D screening mammo w/cad, [facility]. Tissue Density: There are scattered areas of fibroglandular density. Findings: Analyzed By CAD. Multiple small benign-appearing round calcifications throughout bilateral breasts are redemonstrated. Mammotome biopsy clip left breast is redemonstrated. There is no suspicious group of microcalcifications or new suspicious mass in either breast. Overall Assessment: Benign, BI-RAD 2 Management: Screening Mammogram of both breasts in 1 year. . Patient should continue monthly self-breast exams. A clinical breast exam by your physician is recommended on an annual basis. This exam should not preclude additional follow-up of suspicious palpable abnormalities. Note on Jaki scores and lifetime risk: 1. A Jaki score greater than 3% is considered moderate risk. If this is the case, consider specialist referral to assess eligibility for a risk reducing agent. 2. If overall lifetime risk for the development of breast cancer is 20% or higher, the patient may qualify for future screening with alternating mammogram and breast MRI. [facility], , 10/10/2024 7:07 AM. Electronically signed and approved by: Roger Leonard M.D.
== END | disposition home or self-care (01) ==
LOC: RADMAMWWP 14:27
PROVIDERS: ATTEND Family Medicine
DX: Z12.31 Encounter for screening mammogram for malignant neoplasm of breast (principal); R92.323 Mammographic fibroglandular density, bilateral breasts; R92.1 Mammographic calcification found on diagnostic imaging of breast; Z78.0 Asymptomatic menopausal state
CPT/HCPCS: 77063; 77067